=== PATIENT | male | born 1945 | race Two or more races ===

== ENCOUNTER → 2023-05-25 13:18 | Outpatient (BNVA) | payer MEDICARE, SELFPAY | PROVIDERS: PCP Internal Medicine; Visit Provider Internal Medicine Nephrology | DX: I12.9 Hypertensive chronic kidney disease with stage 1 through stage 4 chronic kidney disease, or unspecified chronic kidney disease (principal); N18.5 Chronic kidney disease, stage 5; D63.1 Anemia in chronic kidney disease; N25.81 Secondary hyperparathyroidism of renal origin | CPT/HCPCS: 99212 ==

== ENCOUNTER 2023-05-25 13:30 | Outpatient (AMB) | payer MEDICARE, SELFPAY ==
[2023-05-25 13:31] VITALS: BP 134/70; PULSE 73; O2SAT 99; BMI 22.5
--- NOTE | 2023-05-25 13:31 | HO.NEPHOV ---
HPI HPI Comments History of Present Illness Details I had the pleasure of seeing Maik in follow-up of his advanced chronic kidney disease, hypertension and anemia of chronic disease along with secondary hyperparathyroidism of renal origin. He denies any uremic symptoms or hypoglycemias. His blood sugar well controlled. He denies any nausea, vomiting, shortness of breath, pedal edema, urinary symptoms, tremors, confusion, chest pain. He recently had a dog attacking his right upper extremity which is his fistula arm. His renal functions had been stable. He is not on any Procrit but has anemia. Otherwise there were no new active complaints at the time of this office visit. [facility] Medical History (Updated 05/25/23 @ 14:07 by Matthieu Berrios MD) AVF (arteriovenous fistula) Secondary hyperparathyroidism (of renal origin) Anemia in chronic kidney disease (CKD) Hypertension CKD (chronic kidney disease) stage 5, GFR less than 15 ml/min Surgical History (Updated 05/25/23 @ 13:31 by Perla Love MA) History of eye surgery History of cataract surgery Social History (Updated 05/25/23 @ 13:31 by Perla Love MA) Alcohol intake: never Patient Tobacco Use Status: Never used Tobacco Vital Signs 05/25/23 13:31 Height 5 ft 6 in Weight 139 lb 6 oz BMI 22.5 BP 134/70 Blood Pressure Location Lt brachial Position Sitting Pulse 73 Pulse Source Pulse Oximeter Pulse Oximetry (%) 99 Oxygen Delivery Method Room Air Physical Exam Vital Signs: Last Vital Signs Pulse 73 05/25/23 13:31 BP 134/70 05/25/23 13:31 Pulse Ox 99 05/25/23 13:31 Oxygen Delivery Method Room Air 05/25/23 13:31 BMI result Body Mass Index 22.5 Const General: comfortable and no acute distress Orientation/consciousness: patient oriented x3 HEENT Head: Yes normocephalic Mouth: Normal oral and palatal mucosa present Eyes EOM: EOMs intact bilaterally Neck Neck: Yes supple Resp Auscultation: clear to auscultation bilaterally Cardio Jugular venous distension: no JVD Rate: regular rate GI Palpation (GI): Soft to palpation Auscultation: normal bowel sounds General: Yes no CVA tenderness Back/Spine/Pelvis Back: no CVA tenderness Skin General skin exam: no rashes or lesions noted Neuro General: patient oriented x3 and moves all extremities Extrem Other: AVF + General: Yes no pedal edema Assessment & Plan Assessment & Plan (1) CKD (chronic kidney disease) stage 5, GFR less than 15 ml/min: Code(s): N18.5 - Chronic kidney disease, stage 5 (2) Hypertension: Code(s): I10 - Essential (primary) hypertension Qualifiers: Hypertension type: primary hypertension Qualified Code(s): I10 - Essential (primary) hypertension (3) Anemia in chronic kidney disease (CKD): Code(s): N18.9 - Chronic kidney disease, unspecified; D63.1 - Anemia in chronic kidney disease Qualifiers: Chronic kidney disease stage: stage 5, not on chronic dialysis Qualified Code(s): N18.5 - Chronic kidney disease, stage 5; D63.1 - Anemia in chronic kidney disease (4) Secondary hyperparathyroidism (of renal origin): Code(s): N25.81 - Secondary hyperparathyroidism of renal origin Plan Maik has 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 He denies uremic symptoms. He has a functioning AV fistula. His blood pressure has been at goal. He continues Kayexalate 3 times a week. His sodium bicarbonate has been increased to 3 times a day. He has declined transplant evaluation in the past. There are no clinical indication for him to be initiated on hemodialysis. He is on ferrous sulfate. His transferrin saturations are appropriate. We are repeating a CBC. He will be a candidate for Procrit if his hemoglobin continues to be low. He is on vitamin-D. I have asked him to continue current dose of calcitriol. His repeat blood work has been ordered including PTH. All questions answered. Follow-up given. Orders: Orders Parathyroid Hormone Intact Today D63.1 - Anemia in chronic kidney disease, I10 - Essential (primary) hypertension, N18.5 - Chronic kidney disease, stage 5, N18.9 - Chronic kidney disease, unspecified, N25.81 - Secondary hyperparathyroidism of renal origin Complete Blood Count Auto Diff Today D63.1 - Anemia in chronic kidney disease, I10 - Essential (primary) hypertension, N18.5 - Chronic kidney disease, stage 5, N18.9 - Chronic kidney disease, unspecified, N25.81 - Secondary hyperparathyroidism of renal origin Creatinine Today D63.1 - Anemia in chronic kidney disease, I10 - Essential (primary) hypertension, N18.5 - Chronic kidney disease, stage 5, N18.9 - Chronic kidney disease, unspecified, N25.81 - Secondary hyperparathyroidism of renal origin Electrolytes Today D63.1 - Anemia in chronic kidney disease, I10 - Essential (primary) hypertension, N18.5 - Chronic kidney disease, stage 5, N18.9 - Chronic kidney disease, unspecified, N25.81 - Secondary hyperparathyroidism of renal origin Blood Urea Nitrogen Today D63.1 - Anemia in chronic kidney disease, I10 - Essential (primary) hypertension, N18.5 - Chronic kidney disease, stage 5, N18.9 - Chronic kidney disease, unspecified, N25.81 - Secondary hyperparathyroidism of renal origin Coding Level of Care Code Est Pt Level 4 (69980) Diagnoses CKD (chronic kidney disease) stage 5, GFR less than 15 ml/min N18.5 Primary hypertension I10 Hypertension type: primary hypertension Anemia in stage 5 chronic kidney disease, not on chronic dialysis N18.5; D63.1 Chronic kidney disease stage: stage 5, not on chronic dialysis Secondary hyperparathyroidism (of renal origin) N25.81 Results Reviewed Nephrology Results: No Data to Display
== END 2023-05-25 14:00 | disposition home or self-care (01) ==
PROVIDERS: PCP Internal Medicine; Visit Provider Internal Medicine Nephrology
DX: N18.5 Chronic kidney disease, stage 5 (principal); I12.0 Hypertensive chronic kidney disease with stage 5 chronic kidney disease or end stage renal disease; D63.1 Anemia in chronic kidney disease; N25.81 Secondary hyperparathyroidism of renal origin
CPT/HCPCS: 99214

== ENCOUNTER 2023-06-22 09:22 | Outpatient (AMB) | payer OTHER, SELFPAY ==
[2023-06-22 09:37] VITALS: BP 122/70; PULSE 74; O2SAT 99; BMI 22.2
--- NOTE | 2023-06-22 09:37 | HO.NEPHOV ---
HPI HPI Comments History of Present Illness Details I had the pleasure of seeing Maik in follow-up of his advanced chronic kidney disease, hypertension and anemia of chronic disease along with secondary hyperparathyroidism of renal origin. He denies any uremic symptoms or hypoglycemias. His blood sugar well controlled. He denies any nausea, vomiting, shortness of breath, pedal edema, urinary symptoms, tremors, confusion, chest pain. He recently had a dog attacking his right upper extremity which is his fistula arm. His renal functions had been stable. Otherwise there were no new active complaints at the time of this office visit [facility] Medical History (Updated 05/25/23 @ 14:07 by Matthieu Berrios MD) AVF (arteriovenous fistula) Secondary hyperparathyroidism (of renal origin) Anemia in chronic kidney disease (CKD) Hypertension CKD (chronic kidney disease) stage 5, GFR less than 15 ml/min Surgical History History of eye surgery History of cataract surgery Social History Alcohol intake: never Patient Tobacco Use Status: Never used Tobacco Vital Signs 06/22/23 09:37 Height 5 ft 6 in Weight 137 lb 8 oz BMI 22.2 BP 122/70 Blood Pressure Location Lt brachial Position Sitting Pulse 74 Pulse Source Pulse Oximeter Pulse Oximetry (%) 99 Oxygen Delivery Method Room Air Physical Exam Vital Signs: Last Vital Signs Pulse 74 06/22/23 09:37 BP 122/70 06/22/23 09:37 Pulse Ox 99 06/22/23 09:37 Oxygen Delivery Method Room Air 06/22/23 09:37 BMI result Body Mass Index 22.2 Const General: comfortable and no acute distress Orientation/consciousness: patient oriented x3 HEENT Head: Yes normocephalic Mouth: Normal oral and palatal mucosa present Eyes EOM: EOMs intact bilaterally Neck Neck: Yes supple Resp Auscultation: clear to auscultation bilaterally Cardio Jugular venous distension: no JVD Rate: regular rate GI Palpation (GI): Soft to palpation Auscultation: normal bowel sounds General: Yes no CVA tenderness Back/Spine/Pelvis Back: no CVA tenderness Skin General skin exam: no rashes or lesions noted Neuro General: patient oriented x3 and moves all extremities Extrem General: Yes no pedal edema Assessment & Plan Assessment & Plan (1) CKD (chronic kidney disease) stage 5, GFR less than 15 ml/min: Code(s): N18.5 - Chronic kidney disease, stage 5 (2) Hypertension: Code(s): I10 - Essential (primary) hypertension Qualifiers: Hypertension type: primary hypertension Qualified Code(s): I10 - Essential (primary) hypertension (3) Anemia in chronic kidney disease (CKD): Code(s): N18.9 - Chronic kidney disease, unspecified; D63.1 - Anemia in chronic kidney disease Qualifiers: Chronic kidney disease stage: stage 5, not on chronic dialysis Qualified Code(s): N18.5 - Chronic kidney disease, stage 5; D63.1 - Anemia in chronic kidney disease (4) Secondary hyperparathyroidism (of renal origin): Code(s): N25.81 - Secondary hyperparathyroidism of renal origin Plan Maik has 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 He denies uremic symptoms. He has a functioning AV fistula. His blood pressure has been at goal. He continues Kayexalate 3 times a week. His sodium bicarbonate has been increased to 3 times a day. He has declined transplant evaluation in the past. There are no clinical indication for him to be initiated on hemodialysis. He is on ferrous sulfate. His transferrin saturations are appropriate. I administered 22852 U of Procrit today in the office. He is on vitamin-D. I have asked him to continue current dose of calcitriol. All questions answered. Follow-up given Orders: Orders Complete Blood Count Auto Diff Today D63.1 - Anemia in chronic kidney disease, I10 - Essential (primary) hypertension, N18.5 - Chronic kidney disease, stage 5, N18.9 - Chronic kidney disease, unspecified, N25.81 - Secondary hyperparathyroidism of renal origin [facility] Supplied Today D63.1 - Anemia in chronic kidney disease, N18.5 - Chronic kidney disease, stage 5, N18.9 - Chronic kidney disease, unspecified Medications: New epoetin kj 20,000 units (2 mL) subcut ONCE 2 mL 0RF D63.1 - Anemia in chronic kidney disease, N18.5 - Chronic kidney disease, stage 5, N18.9 - Chronic kidney disease, unspecified Coding Level of Care Code Est Pt Level 3 (71828) Diagnoses CKD (chronic kidney disease) stage 5, GFR less than 15 ml/min N18.5 Primary hypertension I10 Hypertension type: primary hypertension Anemia in stage 5 chronic kidney disease, not on chronic dialysis N18.5; D63.1 Chronic kidney disease stage: stage 5, not on chronic dialysis Secondary hyperparathyroidism (of renal origin) N25.81 Results Reviewed Nephrology Results: No Data to Display
== END 2023-06-22 10:02 | disposition home or self-care (01) ==
PROVIDERS: PCP Internal Medicine; Visit Provider Internal Medicine Nephrology
DX: N18.5 Chronic kidney disease, stage 5 (principal); I12.0 Hypertensive chronic kidney disease with stage 5 chronic kidney disease or end stage renal disease; D63.1 Anemia in chronic kidney disease; N25.81 Secondary hyperparathyroidism of renal origin
CPT/HCPCS: 99213

== ENCOUNTER → 2023-06-22 09:22 | Outpatient (BNVA) | payer OTHER, SELFPAY | PROVIDERS: PCP Internal Medicine; Visit Provider Internal Medicine Nephrology | DX: I12.9 Hypertensive chronic kidney disease with stage 1 through stage 4 chronic kidney disease, or unspecified chronic kidney disease (principal); N18.5 Chronic kidney disease, stage 5; D63.1 Anemia in chronic kidney disease; N25.81 Secondary hyperparathyroidism of renal origin; Z79.899 Other long term (current) drug therapy | CPT/HCPCS: 96372; 99212; Q5106 ==

== ENCOUNTER 2023-07-18 09:29 | Outpatient (AMB) | payer OTHER, SELFPAY ==
[2023-07-18 09:34] VITALS: BP 140/66; PULSE 67; O2SAT 99; BMI 22.6
--- NOTE | 2023-07-18 09:34 | HO.NEPHOV ---
HPI HPI Comments History of Present Illness Details I had the pleasure of seeing Maik in follow-up of his advanced chronic kidney disease, hypertension and anemia of chronic disease along with secondary hyperparathyroidism of renal origin. He denies any uremic symptoms or hypoglycemias. His blood sugar well controlled. He denies any nausea, vomiting, shortness of breath, pedal edema, urinary symptoms, tremors, confusion, chest pain. He recently had a dog attacking his right upper extremity which is his fistula arm. His renal functions had been stable. He has been taking 150 mcg levothyroxine. He was meant to take only 112 mcg but does not have the medication of that strength and has been taking 75 mcg. Otherwise there were no new active complaints at the time of this office visit [facility] Medical History (Updated 05/25/23 @ 14:07 by Matthieu Berrios MD) AVF (arteriovenous fistula) Secondary hyperparathyroidism (of renal origin) Anemia in chronic kidney disease (CKD) Hypertension CKD (chronic kidney disease) stage 5, GFR less than 15 ml/min Surgical History History of eye surgery History of cataract surgery Social History Alcohol intake: never Patient Tobacco Use Status: Never used Tobacco Vital Signs 07/18/23 09:34 Height 5 ft 6 in Weight 140 lb 2 oz BMI 22.6 BP 140/66 H Blood Pressure Location Lt brachial Position Sitting Pulse 67 Pulse Source Pulse Oximeter Pulse Oximetry (%) 99 Oxygen Delivery Method Room Air Physical Exam Const General: comfortable and no acute distress Orientation/consciousness: patient oriented x3 HEENT Head: Yes normocephalic Mouth: Normal oral and palatal mucosa present Eyes EOM: EOMs intact bilaterally Neck Neck: Yes supple Resp Auscultation: clear to auscultation bilaterally Cardio Jugular venous distension: no JVD Rate: regular rate GI Palpation (GI): Soft to palpation Auscultation: normal bowel sounds General: Yes no CVA tenderness Back/Spine/Pelvis Back: no CVA tenderness Skin General skin exam: no rashes or lesions noted Neuro General: patient oriented x3 and moves all extremities Extrem Other: AVF UE +; No asterixis General: Yes no pedal edema Office Meds epoetin [id number] 10,000 unit/mL injection solution Performing Provider: Matthieu Berrios MD Performing Location: [facility] [place] [facility] Administered by: Matthieu Berrios MD on 07/18/23 09:45 Dose Route Admin Location Dispensed Lot Number Expiration Date [facility] [place]NOTE 2] [employer] 20,000 unit subcut 2 mL [id number] 10/13/25 5368-8790-55 [employer] Assessment & Plan Assessment & Plan (1) CKD (chronic kidney disease) stage 5, GFR less than 15 ml/min: Code(s): N18.5 - Chronic kidney disease, stage 5 (2) Hypertension: Code(s): I10 - Essential (primary) hypertension Qualifiers: Hypertension type: primary hypertension Qualified Code(s): I10 - Essential (primary) hypertension (3) Anemia in chronic kidney disease (CKD): Code(s): N18.9 - Chronic kidney disease, unspecified; D63.1 - Anemia in chronic kidney disease Qualifiers: Chronic kidney disease stage: stage 5, not on chronic dialysis Qualified Code(s): N18.5 - Chronic kidney disease, stage 5; D63.1 - Anemia in chronic kidney disease (4) Secondary hyperparathyroidism (of renal origin): Code(s): N25.81 - Secondary hyperparathyroidism of renal origin Plan Maik has 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 He denies uremic symptoms. He has a functioning AV fistula. His blood pressure has been at goal. He continues Kayexalate 3 times a week. He is on sodium bicarbonate . He has declined transplant evaluation in the past. There are no clinical indication for him to be initiated on hemodialysis. He is on ferrous sulfate. His transferrin saturations are appropriate. His last Hb was 9.5. I administered 39973 U of Procrit today in the office. I refilled levothyroxine 112 mcg daily. He is on vitamin-D. I have asked him to continue current dose of calcitriol. All questions answered. Follow-up given Orders: Orders [facility] Epoetin Injection Practice Supplied Today D63.1 - Anemia in chronic kidney disease, N18.9 - Chronic kidney disease, unspecified Calcium Today D63.1 - Anemia in chronic kidney disease, I10 - Essential (primary) hypertension, N18.5 - Chronic kidney disease, stage 5, N18.9 - Chronic kidney disease, unspecified, N25.81 - Secondary hyperparathyroidism of renal origin Electrolytes Today D63.1 - Anemia in chronic kidney disease, I10 - Essential (primary) hypertension, N18.5 - Chronic kidney disease, stage 5, N18.9 - Chronic kidney disease, unspecified, N25.81 - Secondary hyperparathyroidism of renal origin Blood Urea Nitrogen Today D63.1 - Anemia in chronic kidney disease, I10 - Essential (primary) hypertension, N18.5 - Chronic kidney disease, stage 5, N18.9 - Chronic kidney disease, unspecified, N25.81 - Secondary hyperparathyroidism of renal origin Creatinine Today D63.1 - Anemia in chronic kidney disease, I10 - Essential (primary) hypertension, N18.5 - Chronic kidney disease, stage 5, N18.9 - Chronic kidney disease, unspecified, N25.81 - Secondary hyperparathyroidism of renal origin Phosphorus Today D63.1 - Anemia in chronic kidney disease, I10 - Essential (primary) hypertension, N18.5 - Chronic kidney disease, stage 5, N18.9 - Chronic kidney disease, unspecified, N25.81 - Secondary hyperparathyroidism of renal origin Complete Blood Count Auto Diff Today D63.1 - Anemia in chronic kidney disease, I10 - Essential (primary) hypertension, N18.5 - Chronic kidney disease, stage 5, N18.9 - Chronic kidney disease, unspecified, N25.81 - Secondary hyperparathyroidism of renal origin Medications: New levothyroxine (Synthroid) 112 mcg PO DAILY 90 tabs 4RF Coding Level of Care Code Est Pt Level 4 (97296) Diagnoses CKD (chronic kidney disease) stage 5, GFR less than 15 ml/min N18.5 Primary hypertension I10 Hypertension type: primary hypertension Anemia in stage 5 chronic kidney disease, not on chronic dialysis N18.5; D63.1 Chronic kidney disease stage: stage 5, not on chronic dialysis Secondary hyperparathyroidism (of renal origin) N25.81 Results Reviewed Nephrology Results: No Data to Display
== END 2023-07-18 10:07 | disposition home or self-care (01) ==
LOC: HO.HKAS 09:30
PROVIDERS: PCP Internal Medicine; Visit Provider Internal Medicine Nephrology
DX: I12.9 Hypertensive chronic kidney disease with stage 1 through stage 4 chronic kidney disease, or unspecified chronic kidney disease (principal); N18.5 Chronic kidney disease, stage 5; D63.1 Anemia in chronic kidney disease; N25.81 Secondary hyperparathyroidism of renal origin; N18.9 Chronic kidney disease, unspecified
CPT/HCPCS: 99214

== ENCOUNTER → 2023-07-18 09:29 | Outpatient (BNVA) | payer MEDICARE, SELFPAY | PROVIDERS: PCP Internal Medicine; Visit Provider Internal Medicine Nephrology | DX: I12.0 Hypertensive chronic kidney disease with stage 5 chronic kidney disease or end stage renal disease (principal); N18.5 Chronic kidney disease, stage 5; D63.1 Anemia in chronic kidney disease; N25.81 Secondary hyperparathyroidism of renal origin; Z79.899 Other long term (current) drug therapy | CPT/HCPCS: 96372; Q5106 ==

== ENCOUNTER 2023-08-29 10:10 | Outpatient (AMB) | payer OTHER, SELFPAY ==
[2023-08-29 10:57] VITALS: BP 138/60; PULSE 69; O2SAT 99; BMI 21.9
--- NOTE | 2023-08-29 10:57 | HO.NEPHOV ---
HPI HPI Comments History of Present Illness Details I had the pleasure of seeing Maik in follow-up of his advanced chronic kidney disease, hypertension and anemia of chronic disease along with secondary hyperparathyroidism of renal origin. He denies any uremic symptoms or hypoglycemias. His blood sugar well controlled. He denies any nausea, vomiting, shortness of breath, pedal edema, urinary symptoms, tremors, confusion, chest pain. He recently had a dog attacking his right upper extremity which is his fistula arm. His renal functions had been stable. Otherwise there were no new active complaints at the time of this office visit [facility] Medical History (Updated 05/25/23 @ 14:07 by Matthieu Berrios MD) AVF (arteriovenous fistula) Secondary hyperparathyroidism (of renal origin) Anemia in chronic kidney disease (CKD) Hypertension CKD (chronic kidney disease) stage 5, GFR less than 15 ml/min Surgical History History of eye surgery History of cataract surgery Social History Alcohol intake: never Patient Tobacco Use Status: Never used Tobacco Vital Signs 08/29/23 10:57 Height 5 ft 6 in Weight 136 lb BMI 21.9 BP 138/60 Blood Pressure Location Lt brachial Position Sitting Pulse 69 Pulse Source Pulse Oximeter Pulse Oximetry (%) 99 Oxygen Delivery Method Room Air Physical Exam Const General: comfortable and no acute distress Orientation/consciousness: patient oriented x3 HEENT Head: Yes normocephalic Mouth: Normal oral and palatal mucosa present Eyes EOM: EOMs intact bilaterally Neck Neck: Yes supple Resp Auscultation: clear to auscultation bilaterally Cardio Jugular venous distension: no JVD Rate: regular rate GI Palpation (GI): Soft to palpation Auscultation: normal bowel sounds General: Yes no CVA tenderness Back/Spine/Pelvis Back: no CVA tenderness Skin General skin exam: no rashes or lesions noted Neuro General: patient oriented x3 and moves all extremities Extrem General: Yes no pedal edema Office Meds epoetin [id number] 10,000 unit/mL injection solution Performing Provider: Matthieu Berrios MD Performing Location: [facility] [place] [facility] Administered by: Matthieu Berrios MD on 08/29/23 11:13 Dose Route Admin Location Dispensed Lot Number Expiration Date [facility] [employer] 20,000 unit subcut 2 mL [id number] 10/13/25 9669-2576-93 [employer] Assessment & Plan Assessment & Plan (1) CKD (chronic kidney disease) stage 5, GFR less than 15 ml/min: Code(s): N18.5 - Chronic kidney disease, stage 5 (2) Hypertension: Code(s): I10 - Essential (primary) hypertension Qualifiers: Hypertension type: primary hypertension Qualified Code(s): I10 - Essential (primary) hypertension (3) Anemia in chronic kidney disease (CKD): Code(s): N18.9 - Chronic kidney disease, unspecified; D63.1 - Anemia in chronic kidney disease Qualifiers: Chronic kidney disease stage: stage 5, not on chronic dialysis Qualified Code(s): N18.5 - Chronic kidney disease, stage 5; D63.1 - Anemia in chronic kidney disease (4) Secondary hyperparathyroidism (of renal origin): Code(s): N25.81 - Secondary hyperparathyroidism of renal origin Plan Maik has 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 He denies uremic symptoms. He has a functioning AV fistula. His blood pressure has been at goal. He continues Kayexalate 3 times a week. He is on sodium bicarbonate . He has declined transplant evaluation in the past. There are no clinical indication for him to be initiated on hemodialysis. He is on ferrous sulfate. His transferrin saturations are appropriate. His last Hb was 9.5. I administered [id number] U of Procrit today in the office. He is on vitamin-D. I have asked him to continue current dose of calcitriol. All questions answered. Follow-up given Orders: Orders Complete Blood Count Auto Diff Today D63.1 - Anemia in chronic kidney disease, I10 - Essential (primary) hypertension, N18.5 - Chronic kidney disease, stage 5, N25.81 - Secondary hyperparathyroidism of renal origin Ferritin Today D63.1 - Anemia in chronic kidney disease, I10 - Essential (primary) hypertension, N18.5 - Chronic kidney disease, stage 5, N25.81 - Secondary hyperparathyroidism of renal origin Creatinine Today D63.1 - Anemia in chronic kidney disease, I10 - Essential (primary) hypertension, N18.5 - Chronic kidney disease, stage 5, N25.81 - Secondary hyperparathyroidism of renal origin Phosphorus Today D63.1 - Anemia in chronic kidney disease, I10 - Essential (primary) hypertension, N18.5 - Chronic kidney disease, stage 5, N25.81 - Secondary hyperparathyroidism of renal origin [facility] Epoetin Injection Practice Supplied Today D63.1 - Anemia in chronic kidney disease, N18.5 - Chronic kidney disease, stage 5 IRON PROFILE Today D63.1 - Anemia in chronic kidney disease, I10 - Essential (primary) hypertension, N18.5 - Chronic kidney disease, stage 5, N25.81 - Secondary hyperparathyroidism of renal origin Blood Urea Nitrogen Today D63.1 - Anemia in chronic kidney disease, I10 - Essential (primary) hypertension, N18.5 - Chronic kidney disease, stage 5, N25.81 - Secondary hyperparathyroidism of renal origin Electrolytes Today D63.1 - Anemia in chronic kidney disease, I10 - Essential (primary) hypertension, N18.5 - Chronic kidney disease, stage 5, N25.81 - Secondary hyperparathyroidism of renal origin Calcium Today D63.1 - Anemia in chronic kidney disease, I10 - Essential (primary) hypertension, N18.5 - Chronic kidney disease, stage 5, N25.81 - Secondary hyperparathyroidism of renal origin Parathyroid Hormone Intact Today D63.1 - Anemia in chronic kidney disease, I10 - Essential (primary) hypertension, N18.5 - Chronic kidney disease, stage 5, N25.81 - Secondary hyperparathyroidism of renal origin Coding Level of Care Code Est Pt Level 4 (39902) Diagnoses CKD (chronic kidney disease) stage 5, GFR less than 15 ml/min N18.5 Primary hypertension I10 Hypertension type: primary hypertension Anemia in stage 5 chronic kidney disease, not on chronic dialysis N18.5; D63.1 Chronic kidney disease stage: stage 5, not on chronic dialysis Secondary hyperparathyroidism (of renal origin) N25.81 Results Reviewed Nephrology Results: No Data to Display
== END 2023-08-29 11:23 | disposition home or self-care (01) ==
PROVIDERS: PCP Internal Medicine; Visit Provider Internal Medicine Nephrology
DX: N18.5 Chronic kidney disease, stage 5 (principal); I12.0 Hypertensive chronic kidney disease with stage 5 chronic kidney disease or end stage renal disease; D63.1 Anemia in chronic kidney disease; N25.81 Secondary hyperparathyroidism of renal origin
CPT/HCPCS: 99214

== ENCOUNTER → 2023-08-29 10:10 | Outpatient (BNVA) | payer MEDICARE, SELFPAY | PROVIDERS: PCP Internal Medicine; Visit Provider Internal Medicine Nephrology | DX: I12.9 Hypertensive chronic kidney disease with stage 1 through stage 4 chronic kidney disease, or unspecified chronic kidney disease (principal); N18.5 Chronic kidney disease, stage 5; D63.1 Anemia in chronic kidney disease; N25.81 Secondary hyperparathyroidism of renal origin | CPT/HCPCS: 96372; Q5106 ==

== ENCOUNTER 2023-10-31 09:51 | Outpatient (AMB) | payer OTHER, SELFPAY ==
[2023-10-31 10:19] VITALS: BP 148/60; PULSE 65; O2SAT 98; BMI 22.4
--- NOTE | 2023-10-31 10:19 | HO.NEPHOV ---
Vital Signs 10/31/23 10:19 Height 5 ft 6 in Weight 139 lb BMI 22.4 BP 148/60 H Blood Pressure Location Lt brachial Position Sitting Pulse 65 Pulse Source Pulse Oximeter Pulse Oximetry (%) 98 Oxygen Delivery Method Room Air Intake Visit Reasons: 2 mon follow up/ Conf Laminate Floor Installer Required: No Accompanied by: Self / Same As Patient Allergies No Known Allergies Allergy (Verified 10/31/23 10:21) HPI Comments Details: I had the pleasure of seeing Maik in follow-up of his advanced chronic kidney disease, hypertension and anemia of chronic disease along with secondary hyperparathyroidism of renal origin. He denies any uremic symptoms or hypoglycemias. His blood sugar well controlled. He denies any nausea, vomiting, shortness of breath, pedal edema, urinary symptoms, tremors, confusion, chest pain. He recently had a dog attacking his right upper extremity which is his fistula arm. His renal functions had been stable. Otherwise there were no new active complaints at the time of this office visit [facility] Medical History (Updated 05/25/23 @ 14:07 by Matthieu Berrios MD) AVF (arteriovenous fistula) Secondary hyperparathyroidism (of renal origin) Anemia in chronic kidney disease (CKD) Hypertension CKD (chronic kidney disease) stage 5, GFR less than 15 ml/min Surgical History History of eye surgery History of cataract surgery Social History Alcohol intake: never Patient Tobacco Use Status: Never used Tobacco Physical Exam Vital Signs: Last Vital Signs Pulse 65 10/31/23 10:19 BP 148/60 H 10/31/23 10:19 Pulse Ox 98 10/31/23 10:19 Oxygen Delivery Method Room Air 10/31/23 10:19 BMI result Body Mass Index 22.4 Const General: comfortable and no acute distress Orientation/consciousness: patient oriented x3 HEENT Head: Yes normocephalic Mouth: Normal oral and palatal mucosa present Eyes EOM: EOMs intact bilaterally Neck Neck: Yes supple Resp Auscultation: clear to auscultation bilaterally Cardio Jugular venous distension: no JVD Rate: regular rate GI Palpation (GI): Soft to palpation Auscultation: normal bowel sounds General: Yes no CVA tenderness Back/Spine/Pelvis Back: no CVA tenderness Skin General skin exam: no rashes or lesions noted Neuro General: patient oriented x3 and moves all extremities Extrem General: Yes no pedal edema Office Meds epoetin kj-epbx 10,000 unit/mL injection solution Performing Provider: Matthieu Berrios MD Performing Location: [facility] – [place] [facility] Administered by: Matthieu Berrios MD on 10/31/23 10:31 Dose Route Admin Location Dispensed Lot Number Expiration Date [facility] Metal Bending Machine Operator 20,000 unit subcut LUE 2 mL [id number] 04/14/25 4122-4249-38 [employer] Results Reviewed Nephrology Results: No Data to Display Assessment & Plan Assessment & Plan (1) CKD (chronic kidney disease) stage 5, GFR less than 15 ml/min: Code(s): N18.5 - Chronic kidney disease, stage 5 Category: Medical (2) Hypertension: Code(s): I10 - Essential (primary) hypertension Category: Medical Qualifiers: Hypertension type: primary hypertension Qualified Code(s): I10 - Essential (primary) hypertension (3) Anemia in chronic kidney disease (CKD): Code(s): N18.9 - Chronic kidney disease, unspecified; D63.1 - Anemia in chronic kidney disease Category: Medical Qualifiers: Chronic kidney disease stage: stage 5, not on chronic dialysis Qualified Code(s): N18.5 - Chronic kidney disease, stage 5; D63.1 - Anemia in chronic kidney disease (4) Secondary hyperparathyroidism (of renal origin): Code(s): N25.81 - Secondary hyperparathyroidism of renal origin Category: Medical Plan Maik has 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 He denies uremic symptoms. He has a functioning AV fistula. His blood pressure has been at goal. He continues Kayexalate 3 times a week. He is on sodium bicarbonate . He has declined transplant evaluation in the past. There are no clinical indication for him to be initiated on hemodialysis. He is on ferrous sulfate. His transferrin saturations are appropriate. His last Hb was 9.5. I administered [id number] U of Procrit today in the office. He is on vitamin-D. I have asked him to continue current dose of calcitriol. All questions answered. Follow-up given Orders: Orders Creatinine Today D63.1 - Anemia in chronic kidney disease, I10 - Essential (primary) hypertension, N18.5 - Chronic kidney disease, stage 5, N25.81 - Secondary hyperparathyroidism of renal origin Blood Urea Nitrogen Today D63.1 - Anemia in chronic kidney disease, I10 - Essential (primary) hypertension, N18.5 - Chronic kidney disease, stage 5, N25.81 - Secondary hyperparathyroidism of renal origin Calcium Today D63.1 - Anemia in chronic kidney disease, I10 - Essential (primary) hypertension, N18.5 - Chronic kidney disease, stage 5, N25.81 - Secondary hyperparathyroidism of renal origin Vitamin D 25-OH Total Today D63.1 - Anemia in chronic kidney disease, I10 - Essential (primary) hypertension, N18.5 - Chronic kidney disease, stage 5, N25.81 - Secondary hyperparathyroidism of renal origin AMB Epoetin Injection Practice Supplied Today D63.1 - Anemia in chronic kidney disease, N18.5 - Chronic kidney disease, stage 5 Electrolytes Today D63.1 - Anemia in chronic kidney disease, I10 - Essential (primary) hypertension, N18.5 - Chronic kidney disease, stage 5, N25.81 - Secondary hyperparathyroidism of renal origin Complete Blood Count Auto Diff Today D63.1 - Anemia in chronic kidney disease, I10 - Essential (primary) hypertension, N18.5 - Chronic kidney disease, stage 5, N25.81 - Secondary hyperparathyroidism of renal origin Coding Level of Care Code Est Pt Level 4 (15602) Diagnoses CKD (chronic kidney disease) stage 5, GFR less than 15 ml/min N18.5 Primary hypertension I10 Hypertension type: primary hypertension Anemia in stage 5 chronic kidney disease, not on chronic dialysis N18.5; D63.1 Chronic kidney disease stage: stage 5, not on chronic dialysis Secondary hyperparathyroidism (of renal origin) N25.81
== END 2023-10-31 10:40 | disposition home or self-care (01) ==
PROVIDERS: PCP Internal Medicine; Referring Provider Internal Medicine; Visit Provider Internal Medicine Nephrology
DX: N18.5 Chronic kidney disease, stage 5 (principal); I12.0 Hypertensive chronic kidney disease with stage 5 chronic kidney disease or end stage renal disease; D63.1 Anemia in chronic kidney disease; N25.81 Secondary hyperparathyroidism of renal origin
CPT/HCPCS: 99214

== ENCOUNTER → 2023-10-31 09:51 | Outpatient (BNVA) | payer OTHER, SELFPAY | PROVIDERS: PCP Internal Medicine; Visit Provider Internal Medicine Nephrology | DX: I12.0 Hypertensive chronic kidney disease with stage 5 chronic kidney disease or end stage renal disease (principal); N18.5 Chronic kidney disease, stage 5; D63.1 Anemia in chronic kidney disease; N25.81 Secondary hyperparathyroidism of renal origin | CPT/HCPCS: 96372; Q5106 ==

== ENCOUNTER 2024-01-18 14:10 | Outpatient (AMB) | payer OTHER, SELFPAY ==
--- NOTE | 2024-01-18 14:42 | HO.NEPHOV_ITS ---
Vital Signs 01/18/24 14:43 Height 5 ft 6 in Weight 134 lb BMI 21.6 BP 140/68 H Blood Pressure Location Lt brachial Position Sitting Pulse 68 Pulse Source Pulse Oximeter Pulse Oximetry (%) 96 Oxygen Delivery Method Room Air Intake Visit Reasons: 2 mon follow up/CONF Lean Consultant Required: No Accompanied by: Self / Same As Patient Allergies No Known Allergies Allergy (Verified 01/18/24 14:45) HPI Comments Details: I had the pleasure of seeing Maik in follow-up of his advanced chronic kidney disease, hypertension and anemia of chronic disease along with secondary hyperparathyroidism of renal origin. He denies any uremic symptoms or hypoglycemias. His blood sugar well controlled. He denies any nausea, vomiting, shortness of breath, pedal edema, urinary symptoms, tremors, confusion, chest pain. He recently had a dog attacking his right upper extremity which is his fistula arm. Otherwise there were no new active complaints at the time of this office visit [facility] Medical History (Updated 01/18/24 @ 15:08 by Matthieu Berrios MD) AVF (arteriovenous fistula) Secondary hyperparathyroidism (of renal origin) Anemia in chronic kidney disease (CKD) Hypertension CKD (chronic kidney disease) stage 5, GFR less than 15 ml/min Surgical History History of eye surgery History of cataract surgery Social History Alcohol intake: never Patient Tobacco Use Status: Never used Tobacco Review of Systems Const All systems reviewed & are unremarkable except as noted in HPI and below Physical Exam Vital Signs: Last Vital Signs Pulse 68 01/18/24 14:43 BP 140/68 H 01/18/24 14:43 Pulse Ox 96 01/18/24 14:43 Oxygen Delivery Method Room Air 01/18/24 14:43 BMI result Body Mass Index 21.6 Const General: comfortable and no acute distress Orientation/consciousness: patient oriented x3 HEENT Head: Yes normocephalic Mouth: Normal oral and palatal mucosa present Eyes EOM: EOMs intact bilaterally Neck Neck: Yes supple Resp Auscultation: clear to auscultation bilaterally Cardio Jugular venous distension: no JVD Rate: regular rate GI Palpation (GI): Soft to palpation Auscultation: normal bowel sounds General: Yes no CVA tenderness Back/Spine/Pelvis Back: no CVA tenderness Skin General skin exam: no rashes or lesions noted Neuro General: patient oriented x3 and moves all extremities Extrem General: Yes no pedal edema Results Reviewed Nephrology Results: No Data to Display Assessment & Plan Assessment & Plan (1) CKD (chronic kidney disease) stage 5, GFR less than 15 ml/min: Code(s): N18.5 - Chronic kidney disease, stage 5 Category: Medical (2) Hypertension: Code(s): I10 - Essential (primary) hypertension Category: Medical Qualifiers: Hypertension type: primary hypertension Qualified Code(s): I10 - Essential (primary) hypertension (3) Anemia in chronic kidney disease (CKD): Code(s): N18.9 - Chronic kidney disease, unspecified; D63.1 - Anemia in chronic kidney disease Category: Medical Qualifiers: Chronic kidney disease stage: stage 5, not on chronic dialysis Qualified Code(s): N18.5 - Chronic kidney disease, stage 5; D63.1 - Anemia in chronic kidney disease (4) Secondary hyperparathyroidism (of renal origin): Code(s): N25.81 - Secondary hyperparathyroidism of renal origin Category: Medical (5) Hypothyroidism: Code(s): E03.9 - Hypothyroidism, unspecified Category: Medical Plan Maik has 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 He denies uremic symptoms. He has a functioning AV fistula. His blood pressure has been at goal. I increased his Kayexalate to 4 times a week. He is on sodium bicarbonate . He has declined transplant evaluation in the past. There are no clinical indication for him to be initiated on hemodialysis. He is on ferrous sulfate. His transferrin saturations are appropriate. He is on vitamin-D. I have asked him to continue current dose of calcitriol. All questions answered. Follow-up given Orders: Orders Complete Blood Count Auto Diff Today D63.1 - Anemia in chronic kidney disease, E03.9 - Hypothyroidism, unspecified, I10 - Essential (primary) hypertension, N18.5 - Chronic kidney disease, stage 5, N25.81 - Secondary hyperparathyroidism of renal origin Ferritin Today D63.1 - Anemia in chronic kidney disease, E03.9 - Hypothyroidism, unspecified, I10 - Essential (primary) hypertension, N18.5 - Chronic kidney disease, stage 5, N25.81 - Secondary hyperparathyroidism of renal origin Electrolytes Today D63.1 - Anemia in chronic kidney disease, E03.9 - Hypothyroidism, unspecified, I10 - Essential (primary) hypertension, N18.5 - Chronic kidney disease, stage 5, N25.81 - Secondary hyperparathyroidism of renal origin Calcium Today D63.1 - Anemia in chronic kidney disease, E03.9 - Hypothyroidism, unspecified, I10 - Essential (primary) hypertension, N18.5 - Chronic kidney disease, stage 5, N25.81 - Secondary hyperparathyroidism of renal origin Phosphorus Today D63.1 - Anemia in chronic kidney disease, E03.9 - Hypothyroidism, unspecified, I10 - Essential (primary) hypertension, N18.5 - Chronic kidney disease, stage 5, N25.81 - Secondary hyperparathyroidism of renal origin IRON PROFILE Today D63.1 - Anemia in chronic kidney disease, E03.9 - Hypothyroidism, unspecified, I10 - Essential (primary) hypertension, N18.5 - Chronic kidney disease, stage 5, N25.81 - Secondary hyperparathyroidism of renal origin Creatinine Today D63.1 - Anemia in chronic kidney disease, E03.9 - Hypothyroidism, unspecified, I10 - Essential (primary) hypertension, N18.5 - Chronic kidney disease, stage 5, N25.81 - Secondary hyperparathyroidism of renal origin Blood Urea Nitrogen Today D63.1 - Anemia in chronic kidney disease, E03.9 - Hypothyroidism, unspecified, I10 - Essential (primary) hypertension, N18.5 - Chronic kidney disease, stage 5, N25.81 - Secondary hyperparathyroidism of renal origin TSH reflex Free T4 Today D63.1 - Anemia in chronic kidney disease, E03.9 - Hyp othyroidism, unspecified, I10 - Essential (primary) hypertension, N18.5 - Chronic kidney disease, stage 5, N25.81 - Secondary hyperparathyroidism of renal origin Medications: Changed From sodium polystyrene sulfonate 30 grams orally three times a week; 90 days 453.6 grams 7RF To sodium polystyrene sulfonate 30 grams orally four times a week; 90 days 453.6 grams 7RF Coding Level of Care Code Est Pt Level 4 (67597) Diagnoses CKD (chronic kidney disease) stage 5, GFR less than 15 ml/min N18.5 Primary hypertension I10 Hypertension type: primary hypertension Anemia in stage 5 chronic kidney disease, not on chronic dialysis N18.5; D63.1 Chronic kidney disease stage: stage 5, not on chronic dialysis Secondary hyperparathyroidism (of renal origin) N25.81 Hypothyroidism E03.9
[2024-01-18 14:43] VITALS: BP 140/68; PULSE 68; O2SAT 96; BMI 21.6
== END 2024-01-18 15:10 | disposition home or self-care (01) ==
PROVIDERS: PCP Internal Medicine; Visit Provider Internal Medicine Nephrology
DX: N18.5 Chronic kidney disease, stage 5 (principal); I12.0 Hypertensive chronic kidney disease with stage 5 chronic kidney disease or end stage renal disease; D63.1 Anemia in chronic kidney disease; N25.81 Secondary hyperparathyroidism of renal origin; E03.9 Hypothyroidism, unspecified
CPT/HCPCS: 99214

== ENCOUNTER → 2024-01-18 14:10 | Outpatient (BNVA) | payer OTHER, SELFPAY | PROVIDERS: PCP Internal Medicine; Visit Provider Internal Medicine Nephrology ==

== ENCOUNTER 2024-03-21 09:33 | Outpatient (AMB) | payer OTHER, SELFPAY ==
--- NOTE | 2024-03-21 09:36 | HO.NEPHOV ---
Vital Signs 03/21/24 09:39 Height 5 ft 6 in Weight 131 lb 4 oz BMI 21.2 BP 138/64 Blood Pressure Location Lt brachial Position Sitting Pulse 69 Pulse Source Pulse Oximeter Pulse Oximetry (%) 100 Oxygen Delivery Method Room Air Intake Visit Reasons: 2 mon follow up Sharepoint Web Developer Required: No Accompanied by: Self / Same As Patient Allergies No Known Allergies Allergy (Verified 03/21/24 09:39) HPI Comments Details: Maik was seen in follow-up of his advanced chronic kidney disease, hypertension and anemia of chronic disease along with secondary hyperparathyroidism of renal origin. He denies any uremic symptoms or hypoglycemias. He has lost some weight. His blood sugar well controlled. He denies any nausea, vomiting, shortness of breath, pedal edema, urinary symptoms, tremors, confusion, chest pain. He had a dog attacking his right upper extremity which is his fistula arm. Otherwise there were no new active complaints at the time of this office visit [facility] Medical History (Updated 03/21/24 @ 10:01 by Matthieu Berrios MD) AVF (arteriovenous fistula) Secondary hyperparathyroidism (of renal origin) Anemia in chronic kidney disease (CKD) Hypertension CKD (chronic kidney disease) stage 5, GFR less than 15 ml/min Surgical History History of eye surgery History of cataract surgery Social History Alcohol intake: never Patient Tobacco Use Status: Never used Tobacco Review of Systems Const All systems reviewed & are unremarkable except as noted in HPI and below Physical Exam Vital Signs: Last Vital Signs Pulse 69 03/21/24 09:39 BP 138/64 03/21/24 09:39 Pulse Ox 100 03/21/24 09:39 Oxygen Delivery Method Room Air 03/21/24 09:39 BMI result Body Mass Index 21.2 Const General: comfortable and no acute distress Orientation/consciousness: patient oriented x3 HEENT Head: Yes normocephalic Mouth: Normal oral and palatal mucosa present Eyes EOM: EOMs intact bilaterally Neck Neck: Yes supple Resp Auscultation: clear to auscultation bilaterally Cardio Jugular venous distension: no JVD Rate: regular rate GI Palpation (GI): Soft to palpation Auscultation: normal bowel sounds General: Yes no CVA tenderness Back/Spine/Pelvis Back: no CVA tenderness Skin General skin exam: no rashes or lesions noted Neuro General: patient oriented x3 and moves all extremities Extrem General: Yes no pedal edema Office Meds epoetin kj-epbx 10,000 unit/mL injection solution Performing Provider: Matthieu Berrios MD Performing Location: [facility] [place] [facility] Administered by: Matthieu Berrios MD on 03/21/24 10:04 Dose Route Admin Location Dispensed Lot Number Expiration Date [facility] Slurry Tank Operator 40,000 unit subcut LUE 4 mL [id number] 09/12/25 9314-8269-26 [email or web address] Results Reviewed Nephrology Results: No Data to Display Assessment & Plan Assessment & Plan (1) CKD (chronic kidney disease) stage 5, GFR less than 15 ml/min: Code(s): N18.5 - Chronic kidney disease, stage 5 Category: Medical (2) Anemia in chronic kidney disease (CKD): Code(s): N18.9 - Chronic kidney disease, unspecified; D63.1 - Anemia in chronic kidney disease Category: Medical Qualifiers: Chronic kidney disease stage: stage 5, not on chronic dialysis Qualified Code(s): N18.5 - Chronic kidney disease, stage 5; D63.1 - Anemia in chronic kidney disease (3) Secondary hyperparathyroidism (of renal origin): Code(s): N25.81 - Secondary hyperparathyroidism of renal origin Category: Medical (4) Hypertension: Code(s): I10 - Essential (primary) hypertension Category: Medical Qualifiers: Hypertension type: primary hypertension Qualified Code(s): I10 - Essential (primary) hypertension (5) Hyperphosphatemia: Code(s): E83.39 - Other disorders of phosphorus metabolism Category: Medical Plan Maik has 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 He denies uremic symptoms. He has a functioning AV fistula. His blood pressure has been at goal. He should continue Kayexalate . He is on sodium bicarbonate . He has declined transplant evaluation in the past. There are no clinical indication for him to be initiated on hemodialysis. He is on ferrous sulfate. His transferrin saturations are appropriate. He is on vitamin-D. I have asked him to continue current dose of calcitriol. I gave him [id number] Units of Procrit today. I also started Renvela 800 mg tid with meals. All questions answered. Follow-up given Orders: Orders Electrolytes Today N18.5 - Chronic kidney disease, stage 5 AMB Epoetin Injection Practice Supplied Today D63.1 - Anemia in chronic kidney disease, N18.5 - Chronic kidney disease, stage 5 Complete Blood Count Auto Diff Today N18.5 - Chronic kidney disease, stage 5 Creatinine Today N18.5 - Chronic kidney disease, stage 5 Blood Urea Nitrogen Today N18.5 - Chronic kidney disease, stage 5 Medications: New sevelamer carbonate (Renvela) must administer with a meal/food 800 mg PO TID 30 days 90 tabs 6RF Changed From sodium bicarbonate 1,300 mg PO TID To sodium bicarbonate 1,300 mg (2 x 650 mg) PO TID 30 days 180 tabs 6RF Coding Level of Care Code Est Pt Level 4 (85126) Diagnoses CKD (chronic kidney disease) stage 5, GFR less than 15 ml/min N18.5 Anemia in stage 5 chronic kidney disease, not on chronic dialysis N18.5; D63.1 Chronic kidney disease stage: stage 5, not on chronic dialysis Secondary hyperparathyroidism (of renal origin) N25.81 Primary hypertension I10 Hypertension type: primary hypertension Hyperphosphatemia E83.39
[2024-03-21 09:39] VITALS: BP 138/64; PULSE 69; O2SAT 100; BMI 21.2
== END 2024-03-21 10:11 | disposition home or self-care (01) ==
LOC: HO.HKAS 09:34
PROVIDERS: PCP Internal Medicine; Visit Provider Internal Medicine Nephrology
DX: N18.5 Chronic kidney disease, stage 5 (principal); D63.1 Anemia in chronic kidney disease; N25.81 Secondary hyperparathyroidism of renal origin; I12.0 Hypertensive chronic kidney disease with stage 5 chronic kidney disease or end stage renal disease; E83.39 Other disorders of phosphorus metabolism
CPT/HCPCS: 99214

== ENCOUNTER → 2024-03-21 09:33 | Outpatient (BNVA) | payer OTHER, SELFPAY | PROVIDERS: PCP Internal Medicine; Visit Provider Internal Medicine Nephrology | DX: I12.0 Hypertensive chronic kidney disease with stage 5 chronic kidney disease or end stage renal disease (principal); N18.5 Chronic kidney disease, stage 5; D63.1 Anemia in chronic kidney disease; N25.81 Secondary hyperparathyroidism of renal origin; E83.39 Other disorders of phosphorus metabolism | CPT/HCPCS: 96372; Q5106 ==

== ENCOUNTER 2024-04-25 10:37 | Outpatient (AMB) | payer OTHER, SELFPAY ==
--- NOTE | 2024-04-25 13:33 | HO.NEPHOV ---
Vital Signs 04/25/24 13:39 Height 5 ft 6 in Weight 132 lb BMI 21.3 BP 122/60 Blood Pressure Location Lt brachial Position Sitting Pulse 74 Pulse Source Pulse Oximeter Pulse Oximetry (%) 99 Oxygen Delivery Method Room Air Intake Visit Reasons: 2 mon follow up- Unable to reach Conduit Reamer Operator Required: No Accompanied by: Self / Same As Patient Allergies No Known Allergies Allergy (Verified 04/25/24 13:38) HPI Comments Details: Maik was seen in follow-up of his advanced chronic kidney disease, hypertension and anemia of chronic disease along with secondary hyperparathyroidism of renal origin. He denies any uremic symptoms or hypoglycemias. His weight is stable. His blood sugar well controlled. He denies any nausea, vomiting, shortness of breath, pedal edema, urinary symptoms, tremors, confusion, chest pain. He had a dog attacking his right upper extremity which is his fistula arm. Otherwise there were no new active complaints at the time of this office visit [facility] Medical History (Updated 03/21/24 @ 10:01 by Matthieu Berrios MD) AVF (arteriovenous fistula) Secondary hyperparathyroidism (of renal origin) Anemia in chronic kidney disease (CKD) Hypertension CKD (chronic kidney disease) stage 5, GFR less than 15 ml/min Surgical History History of eye surgery History of cataract surgery Social History Alcohol intake: never Patient Tobacco Use Status: Never used Tobacco Review of Systems Const All systems reviewed & are unremarkable except as noted in HPI and below Physical Exam Vital Signs: Last Vital Signs Pulse 74 04/25/24 13:39 BP 122/60 04/25/24 13:39 Pulse Ox 99 04/25/24 13:39 Oxygen Delivery Method Room Air 04/25/24 13:39 BMI result Body Mass Index 21.3 Const General: comfortable and no acute distress Orientation/consciousness: patient oriented x3 HEENT Head: Yes normocephalic Mouth: Normal oral and palatal mucosa present Eyes EOM: EOMs intact bilaterally Neck Neck: Yes supple Resp Auscultation: clear to auscultation bilaterally Cardio Jugular venous distension: no JVD Rate: regular rate GI Palpation (GI): Soft to palpation Auscultation: normal bowel sounds General: Yes no CVA tenderness Back/Spine/Pelvis Back: no CVA tenderness Skin General skin exam: no rashes or lesions noted Neuro General: patient oriented x3 and moves all extremities Extrem General: Yes no pedal edema Office Meds epoetin [id number] 10,000 unit/mL injection solution Performing Provider: Matthieu Berrios MD Performing Location: [facility] [place] [facility] Administered by: Matthieu Berrios MD on 04/25/24 13:50 Dose Route Admin Location Dispensed Lot Number Expiration Date [facility] Industrial Seamstress 20,000 unit subcut LUE 2 mL [id number] 09/12/25 0547-4557-74 [employer] Results Reviewed Nephrology Results: No Data to Display Assessment & Plan Assessment & Plan (1) CKD (chronic kidney disease) stage 5, GFR less than 15 ml/min: Code(s): N18.5 - Chronic kidney disease, stage 5 Category: Medical (2) Anemia in chronic kidney disease (CKD): Code(s): N18.9 - Chronic kidney disease, unspecified; D63.1 - Anemia in chronic kidney disease Category: Medical Qualifiers: Chronic kidney disease stage: stage 5, not on chronic dialysis Qualified Code(s): N18.5 - Chronic kidney disease, stage 5; D63.1 - Anemia in chronic kidney disease (3) Secondary hyperparathyroidism (of renal origin): Code(s): N25.81 - Secondary hyperparathyroidism of renal origin Category: Medical (4) Hypertension: Code(s): I10 - Essential (primary) hypertension Category: Medical Qualifiers: Hypertension type: primary hypertension Qualified Code(s): I10 - Essential (primary) hypertension (5) Hyperphosphatemia: Code(s): E83.39 - Other disorders of phosphorus metabolism Category: Medical Plan Maik has 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 He denies uremic symptoms. He has a functioning AV fistula. His blood pressure has been at goal. He should continue Kayexalate . He is on sodium bicarbonate . He has declined transplant evaluation in the past. There are no clinical indication for him to be initiated on hemodialysis. He is on ferrous sulfate. His transferrin saturations are appropriate. He is on vitamin-D. I have asked him to continue current dose of calcitriol. I gave him [id number] Units of Procrit today. I also started Renvela 800 mg tid with meals. All questions answered. Follow-up given Orders: Orders Creatinine 2 Months D63.1 - Anemia in chronic kidney disease, N18.5 - Chronic kidney disease, stage 5 Calcium 2 Months D63.1 - Anemia in chronic kidney disease, N18.5 - Chronic kidney disease, stage 5 AMB Epoetin Injection Practice Supplied Today D63.1 - Anemia in chronic kidney disease, N18.5 - Chronic kidney disease, stage 5 Complete Blood Count Auto Diff 2 Months D63.1 - Anemia in chronic kidney disease, N18.5 - Chronic kidney disease, stage 5 Blood Urea Nitrogen 2 Months D63.1 - Anemia in chronic kidney disease, N18.5 - Chronic kidney disease, stage 5 Electrolytes 2 Months D63.1 - Anemia in chronic kidney disease, N18.5 - Chronic kidney disease, stage 5 Coding Level of Care Code Est Pt Level 4 (03852) Diagnoses CKD (chronic kidney disease) stage 5, GFR less than 15 ml/min N18.5 Anemia in stage 5 chronic kidney disease, not on chronic dialysis N18.5; D63.1 Chronic kidney disease stage: stage 5, not on chronic dialysis Secondary hyperparathyroidism (of renal origin) N25.81 Primary hypertension I10 Hypertension type: primary hypertension Hyperphosphatemia E83.39
[2024-04-25 13:39] VITALS: BP 122/60; PULSE 74; O2SAT 99; BMI 21.3
== END 2024-04-25 14:01 | disposition home or self-care (01) ==
PROVIDERS: PCP Internal Medicine; Visit Provider Internal Medicine Nephrology
DX: N18.5 Chronic kidney disease, stage 5 (principal); D63.1 Anemia in chronic kidney disease; N25.81 Secondary hyperparathyroidism of renal origin; I12.0 Hypertensive chronic kidney disease with stage 5 chronic kidney disease or end stage renal disease; E83.39 Other disorders of phosphorus metabolism
CPT/HCPCS: 99214

== ENCOUNTER → 2024-04-25 10:37 | Outpatient (BNVA) | payer OTHER, SELFPAY | PROVIDERS: PCP Internal Medicine; Visit Provider Internal Medicine Nephrology | DX: I12.0 Hypertensive chronic kidney disease with stage 5 chronic kidney disease or end stage renal disease (principal); N18.5 Chronic kidney disease, stage 5; D63.1 Anemia in chronic kidney disease; N25.81 Secondary hyperparathyroidism of renal origin; E83.39 Other disorders of phosphorus metabolism | CPT/HCPCS: 96372; Q5106 ==

== ENCOUNTER 2024-07-02 14:06 | Outpatient (AMB) | payer OTHER, SELFPAY ==
--- NOTE | 2024-07-02 14:17 | HO.NEPHOV_ITS ---
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 He denies any uremic symptoms or hypoglycemias. His weight is stable. His blood sugar well controlled. He denies any nausea, vomiting, shortness of breath, pedal edema, urinary symptoms, tremors, confusion, chest pain. He has H/O of a dog attacking his right upper extremity which is his fistula arm. Otherwise there were no new active complaints at the time of this office visit [facility] Medical History (Updated 03/21/24 @ 10:01 by Matthieu Berrios MD) AVF (arteriovenous fistula) Secondary hyperparathyroidism (of renal origin) Anemia in chronic kidney disease (CKD) Hypertension CKD (chronic kidney disease) stage 5, GFR less than 15 ml/min Surgical History History of eye surgery History of cataract surgery Social History Alcohol intake: never Patient Tobacco Use Status: Never used Tobacco Review of Systems Const All systems reviewed & are unremarkable except as noted in HPI and below Physical Exam Vital Signs: Last Vital Signs BP 144/70 H 07/02/24 14:20 BMI result Body Mass Index 21.3 Const General: comfortable and no acute distress Orientation/consciousness: patient oriented x3 HEENT Head: Yes normocephalic Mouth: Normal oral and palatal mucosa present Eyes EOM: EOMs intact bilaterally Neck Neck: Yes supple Resp Auscultation: clear to auscultation bilaterally Cardio Jugular venous distension: no JVD Rate: regular rate GI Palpation (GI): Soft to palpation Auscultation: normal bowel sounds General: Yes no CVA tenderness Back/Spine/Pelvis Back: no CVA tenderness Skin General skin exam: no rashes or lesions noted Neuro General: patient oriented x3 and moves all extremities Extrem General: Yes no pedal edema Office Meds epoetin [id number] 10,000 unit/mL injection solution Performing Provider: Matthieu Berrios MD Per[facility] Administered by: Matthieu Berrios MD on 07/02/24 14:39 Dose Route Admin Location Dispensed Lot Number Expiration Date [facility] [place] [employer] 20,000 unit subcut LUE 2 mL [id number] 09/12/25 8377-2266-41 [employer] Results Reviewed Nephrology Results: No Data to Display Assessment & Plan Assessment & Plan (1) Anemia in chronic kidney disease (CKD): Code(s): N18.9 - Chronic kidney disease, unspecified; D63.1 - Anemia in chronic kidney disease Category: Medical Qualifiers: Chronic kidney disease stage: stage 5, not on chronic dialysis Qualified Code(s): N18.5 - Chronic kidney disease, stage 5; D63.1 - Anemia in chronic kidney disease (2) Secondary hyperparathyroidism (of renal origin): Code(s): N25.81 - Secondary hyperparathyroidism of renal origin Category: Medical (3) CKD (chronic kidney disease) stage 5, GFR less than 15 ml/min: Code(s): N18.5 - Chronic kidney disease, stage 5 Category: Medical (4) Hypertension: Code(s): I10 - Essential (primary) hypertension Category: Medical Qualifiers: Hypertension type: primary hypertension Qualified Code(s): I10 - Essential (primary) hypertension (5) Hyperphosphatemia: Code(s): E83.39 - Other disorders of phosphorus metabolism Category: Medical Plan Maik has 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 He denies u remic symptoms. He has a functioning AV fistula. His blood pressure has been at goal at home. He should continue Kayexalate . He is on sodium bicarbonate . He has declined transplant evaluation in the past. There are no clinical indication for him to be initiated on hemodialysis. He is on ferrous sulfate. His transferrin saturations are appropriate. He is on vitamin-D. I have asked him to continue current dose of calcitriol. I gave him [id number] Units of Procrit today. He should continue Renvela 800 mg tid with meals. All questions answered. Follow-up given Orders: Orders Complete Blood Count Auto Diff 1 Month D63.1 - Anemia in chronic kidney disease, E83.39 - Other disorders of phosphorus metabolism, I10 - Essential (primary) hypertension, N18.5 - Chronic kidney disease, stage 5, N25.81 - Secondary hyperparathyroidism of renal origin Creatinine 1 Month D63.1 - Anemia in chronic kidney disease, E83.39 - Other disorders of phosphorus metabolism, I10 - Essential (primary) hypertension, N18.5 - Chronic kidney disease, stage 5, N25.81 - Secondary hyperparathyroidism of renal origin Blood Urea Nitrogen 1 Month D63.1 - Anemia in chronic kidney disease, E83.39 - Other disorders of phosphorus metabolism, I10 - Essential (primary) hypertension, N18.5 - Chronic kidney disease, stage 5, N25.81 - Secondary hyperparathyroidism of renal origin Electrolytes 1 Month D63.1 - Anemia in chronic kidney disease, E83.39 - Other disorders of phosphorus metabolism, I10 - Essential (primary) hypertension, N18.5 - Chronic kidney disease, stage 5, N25.81 - Secondary hyperparathyroidism of renal origin AMB Epoetin Injection Practice Supplied Today D63.1 - Anemia in chronic kidney disease, N18.5 - Chronic kidney disease, stage 5 Calcium 1 Month D63.1 - Anemia in chronic kidney disease, E83.39 - Other disorders of phosphorus metabolism, I10 - Essential (primary) hypertension, N18.5 - Chronic kidney disease, stage 5, N25.81 - Secondary hyperparathyroidism of renal origin Phosphorus 1 Month D63.1 - Anemia in chronic kidney disease, E83.39 - Other disorders of phosphorus metabolism, I10 - Essential (primary) hypertension, N18.5 - Chronic kidney disease, stage 5, N25.81 - Secondary hyperparathyroidism of renal origin Parathyroid Hormone Intact 1 Month D63.1 - Anemia in chronic kidney disease, E83.39 - Other disorders of phosphorus metabolism, I10 - Essential (primary) hypertension, N18.5 - Chronic kidney disease, stage 5, N25.81 - Secondary hyperparathyroidism of renal origin Medications: New epoetin kj-epbx 20,000 units (2 mL) subcut ONCE 2 mL 0RF D63.1 - Anemia in chronic kidney disease, N18.5 - Chronic kidney disease, stage 5 Coding Level of Care Code Est Pt Level 4 (91783) Diagnoses Anemia in stage 5 chronic kidney disease, not on chronic dialysis N18.5; D63.1 Chronic kidney disease stage: stage 5, not on chronic dialysis Secondary hyperparathyroidism (of renal origin) N25.81 CKD (chronic kidney disease) stage 5, GFR less than 15 ml/min N18.5 Primary hypertension I10 Hypertension type: primary hypertension Hyperphosphatemia E83.39
[2024-07-02 14:20] VITALS: BP 144/70; BMI 21.3
--- OUTSIDE RECORDS SUMMARY | 2024-07-02 15:09 | XMS_ITS | Clinical Summary ---
Author Organization [facility] Address [address] [place] [address] Phone Care Team Providers Care Auxiliary Equipment Tender Name Role Phone Maynor Potts MD Primary Care Provider [phone] Allergies No known active allergies Medications aspirin 81 mg EC tablet Take 1 Tab by mouth daily. 10/30/2012 Active atorvastatin (LIPITOR) 20 mg tablet 20 mg. 10/30/2012 Active calcitrioL (ROCALTROL) 0.25 mcg capsule Take 1 Cap by mouth daily. 03/29/2018 Active cholecalciferol (VITAMIN D-3) 50 mcg (2,000 unit) capsule TAKE 1 CAPSULE BY MOUTH EVERY DAY 11/20/2023 Active ferrous sulfate 325 mg (65 mg elemental iron) tablet Take 1 tablet by mouth 2 times daily. 12/19/2017 Active OneTouch Ultra Test test strip Check twice a day. 02/15/2023 Active levothyroxine (SYNTHROID, LEVOTHROID) 150 mcg tablet Take 1 Tablet by mouth daily for 90 days. 02/03/2023 Active metoprolol tartrate (LOPRESSOR) 25 mg tablet Take 1 Tab by mouth 2 times daily. 03/30/2018 Active glucose blood (Blood Glucose Test) test strip 1 Strip by In Vitro route 3 times daily. DX: E11.9 02/07/2023 Active sodium bicarbonate 650 mg tablet Take 1 Tab by mouth 2 times daily. 03/29/2018 Active sodium polystyrene (KAYEXALATE) powder Take 1 g by mouth. 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 12/19/2017 CKD (chronic kidney disease) stage 5, GFR less than 15 ml/min 12/19/2017 Hyperlipidemia 12/19/2017 Hypertension 12/19/2017 Hypothyroidism 12/19/2017 Proteinuria 12/19/2017 Type 2 diabetes mellitus with cataract 8 AV fistula 08/16/2017 Vitamin B12 deficiency 11/09/2016 Cataract 12/25/2014 Overview (02/14/2024): S/p surgery Hyperparathyroidism 10/02/2013 Background diabetic retinopathy 03/01/2012 Overview (02/14/2024): S/p laser treatment Immunizations Name Administration Dates Next Due Pneumococcal conjugate 13 va lent (Prevnar 13, PCV13) 2mo and older 03/16/2016 Surgical History Surgery Date Site/Laterality Comments COLONOSCOPY PROCEDURE: HISTORICAL COLONOSCOPY CATARACT EXTRACTION PROCEDURE: HISTORICAL CATARACT REMOVAL EYE SURGERY PROCEDURE: HISTORICAL EYE SURGERY; COMMENT: laser treatment to retina OTHER SURGICAL HISTORY PROCEDURE: AV FISTULA OR GRAFT VENOUS Medical History Medical History Date Comments Anemia 04/19/2018 DX:Anemia AV fistula ([facility]) 08/16/2017 DX:AV fistu la ([facility]) Background diabetic retinopa thy ([facility]) 03/01/2012 DX:Background diabetic retin opathy ([facility]); COMMENT: S/p laser treatment Benign localized hyperplasia of prostate with urinary obstruction 12/19/2017 DX:Benign localized hyperpla faustino of prostate with urinary obstruction Cataract 12/25/2014 DX:Cataract; COM MENT: S/p surgery CKD (chronic kidney disease) stage 5, GFR less than 15 ml/min ([facility]) 12/19/2017 DX:CKD (chronic kidn ey disease) stage 5, GFR less than 15 ml/min ([facility]) Hyperlipidemia 12/19/2017 DX:Hyperlipidemi a Hyperparathyroidism ([facility]) 10/02/2013 DX :Hyperparathyroidism ([facility]) Hypertension 12/19/2017 DX:Hypertension Hypothyroidism 12/19/2017 DX:Hypothyroidis m Proteinuria 12/19/2017 DX:Proteinuria Type 2 diabetes mellitus wit h cataract ([facility]) 12/19/2017 DX:Type 2 diabetes mellitus with cataract (HCC) Type 2 diabetes mellitus wit h eye manifestations (CMS/HCC) 04/19/2018 DX:Type 2 diabetes mellitus with eye manifestations (HCC) Type 2 diabetes mellitus wit h renal manifestations (CMS/HCC) 04/19/2018 DX:Type 2 diabetes mellitus with renal manifestations (HCC) Vitamin B12 deficiency 11/09/2016 DX:Vitami n B12 deficiency Family History Medical History Relation Name Comments Other: laryngeal cancer Mother Relation Name Status Comments Father Mother Social History Tobacco Use Types Packs/Day Years Used Date Smoking Tobacco: Never Smokeless Tobacco: Never Alcohol Use Standard Drinks/Week Comments No 0 (1 standard drink = 0.6 oz pur e alcohol) Sex and Gender Information Value Date Recorded Sex Assigned at Not on file Legal Sex Male 2:33 PM EST Gender Identity Not on file Sexual Orientation Not on file Obstetrics History Last Filed Vital Signs Vital Sign Reading Time Taken Comments Blood Pressure 122/64 03/25/2024 11:48 AM EST Pulse 64 03/25/2024 11:48 AM EST Temperature 37 ??C (98.6 ??F) 03/25/2024 11:48 AM EST Respiratory Rate - - Oxygen Saturation 98% 03/25/2024 11:48 AM EST Inhaled Oxygen Concentration - - Weight 57.6 kg (127 lb) 03/25/2024 11:48 AM EST Height - - Body Mass Index - - Plan of Treatment Upcoming Encounters Date Type Department Care Team ([facility] st Contact Info) Description 09/23/2024 9:45 AM EDT Office Visit Internal Medicine - [place] [address] [place] [id number] Maynor Potts MD [address] [facility] [address] [place] [address] Health Maintenance Due Date Last Done Comments Diabetes: Annual Foot Exam 1955 Diabetes: Annual Retina Eye Exam 1955 DTaP,Tdap,and Td Vaccines (1 - Tdap) 1965 Zoster Vaccines (1 of 2) 1996 RSV Immunization Patients 60+ Years Old (1 - 1-dose 75+ series) 2021 Depression Screening 04/23/2022 Falls Risk Assessment 04/23/2022 Hepatitis C Screening 04/23/2022 Medicare Annual Wellness Visit 04/23/2022 Social Influencers of Health Screening 04/23/2022 Diabetes: Blood Sugar Control Test (HGBA1C) 10/24/2023 04/24/2023 COVID-19 Vaccine ( season) 2024 03/31/2023, 03/17/2022, 08/23/2021, Additional history exists Influenza Vaccine (#1) 2024 02/12/2017 Hypertension/CHF/CAD Annual BMP Blood Test 06/17/2025 06/17/2024, 04/17/2024, 04/24/2023 Cholesterol Screening (Lipid Panel) 04/24/2028 04/24/2023 Pneumococcal Vaccine: 50+ Years Completed 03/16/2016, 01/13/2013 HIB Vaccines Aged Out No longer eligi ble based on patient's age to complete this topic HPV Vaccines Aged Out No longer eligi ble based on patient's age to complete this topic Hepatitis A Vaccines Aged Out No long er eligible based on patient's age to complete this topic Hepatitis B Vaccines Aged Out No long er eligible based on patient's age to complete this topic IPV Vaccines Aged Out No longer eligi ble based on patient's age to complete this topic MMR Vaccines Aged Out No longer eligi ble based on patient's age to complete this topic Meningococcal ACWY Vaccine Aged Out N o longer eligible based on patient's age to complete this topic Meningococcal B Vacine Aged Out No lo nger eligible based on patient's age to complete this topic RSV Immunization Patients Under 20 months Aged Out No longer eligible based on patient's age to complete this topic Varicella Vaccines Aged Out No longer eligible based on patient's age to complete this topic Procedures Procedure Name Priority Date/Time Associated Diagnosis Comments CBC WITH AUTO DIFFERENTIAL Routine 06/17/2024 8:13 AM EST Chronic kidney disease, stage V (CMS/HCC) Erythropoietin deficiency anemia BUN Routine 06/17/2024 8:13 AM EST Chronic kidney disease, stage V (CMS/HCC) Erythropoietin deficiency anemia ELECTROLYTE PANEL Routine 06/17/2024 8:1 3 AM EST Chronic kidney disease, stage V (CMS/HCC) Erythropoietin deficiency anemia CBC AND DIFFERENTIAL Routine 06/17/2024 8:13 AM EST Chronic kidney disease, stage V (CMS/HCC) Erythropoietin deficiency anemia CALCIUM Routine 06/17/2024 8:13 AM EST Chronic kidney disease, stage V (CMS/HCC) Erythropoietin deficiency anemia CREATININE, SERUM Routine 06/17/2024 8:1 3 AM EST Chronic kidney disease, stage V (CMS/HCC) Erythropoietin deficiency anemia CBC WITH AUTO DIFFERENTIAL Routine 04/17/2024 9:24 AM EST Type 2 diabetes mellitus with other diabetic kidney complication, without long-term current use of insulin ([facility]) Primary hypertension Pure hypercholesterolemi a Hypothyroidism, unspecified type THYROID STIMULATING HORMONE Routine 04/17/2024 9:24 AM EST Type 2 diabetes mellitus with other diabetic kidney complication, without long-term current use of insulin ([facility]) Primary hypertension Pure hypercholesterolemi a Hypothyroidism, unspecified type COMPREHENSIVE METABOLIC PANEL Routine 04/17/2024 9:24 AM EST Type 2 diabetes mellitus with other diabetic kidney complication, without long-term current use of insulin ([facility]) Primary hypertension Pure hypercholesterolemi a Hypothyroidism, unspecified type CBC AND DIFFERENTIAL Routine 04/17/2024 9:24 AM EST Type 2 diabetes mellitus with other diabetic kidney complication, without long-term current use of insulin ([facility]) Primary hypertension Pure hypercholesterolemi a Hypothyroidism, unspecified type HEMOGLOBIN A1C Routine 04/24/2023 LIPID PANEL Routine 04/24/2023 from Last 3 Months or Most Recently Relevant to Health Maintenance Results * (ABNORMAL) CBC auto differential (06/17/2024 8:13 AM EST) Only the most recent of2 resultswithin the time period is included. WBC 4.9 4.8 - 10.8 K/mcL LAB HEMETOLOGY METHOD 06/17/2024 10:36 AM [facility] RBC 3.10(L) 4.50 - 5.50 M/mcL LAB HEMETOLOGY METHOD 06/17/2024 10:36 AM [facility] Hemoglobin 9.1(L) 13.5 - 17.5 g/dL LAB HEMETOLOGY METHOD 06/17/2024 10:36 AM [facility] Hematocrit 30.2(L) 42.0 - 54.0 % LAB HEMETOLOGY METHOD 06/17/2024 10:36 AM [facility] MCV 98.7(H) 79.0 - 98.0 FL LAB HEMETOLOGY METHOD 06/17/2024 10:36 AM [facility] MCH 29.7 27.0 - 32.0 pcg LAB HEMETOLOGY METHOD 06/17/2024 10:36 AM [facility] MCHC 30.1(L) 32.0 - 37.0 g/dL LAB HEMETOLOGY METHOD 06/17/2024 10:36 AM [facility] RDW 13.9 11.0 - 15.0 % LAB HEMETOLOGY METHOD 06/17/2024 10:36 AM [facility] Platelets 183 130 - 400 K/mcL LAB HEMETOLOGY METHOD 06/17/2024 10:36 AM [facility] MPV 11.6(H) 7.0 - 11.0 FL LAB HEMETOLOGY METHOD 06/17/2024 10:36 AM [facility] NRBC 0.0 <1.0 % LAB HEMETOLOGY METHOD 06/17/2024 10:36 AM [facility] NRBC Absolute 0.00 <0.10 K/mcL LAB HEMETOLOGY METHOD 06/17/2024 10:36 AM [facility] Neutrophils Relative 53.4 % LAB HEMETOLOGY METHOD 06/17/2024 10:36 AM [facility] Lymphocytes Relative 34.3 % LAB HEMETOLOGY METHOD 06/17/2024 10:36 AM [facility] Monocytes Relative 11.5 % LAB HEMETOLOGY METHOD 06/17/2024 10:36 AM [facility] Eosinophils Relative 0.4 % LAB HEMETOLOGY METHOD 06/17/2024 10:36 AM [facility] Basophils Relative 0.2 % LAB HEMETOLOGY METHOD 06/17/2024 10:36 AM [facility] Immature Granulocytes Relative 0.2 % LAB HEMETOLOGY METHOD 06/17/2024 10:36 AM [facility] Neutrophils Absolute 2.60 1.50 - 7.00 K/mcL LAB HEMETOLOGY METHOD 06/17/2024 10:36 AM [facility] Lymphocytes Absolute 1.67 1.00 - 5.00 K/mcL LAB HEMETOLOGY METHOD 06/17/2024 10:36 AM [facility] Monocytes Absolute 0.56 0.20 - 1.00 K/mcL LAB HEMETOLOGY METHOD 06/17/2024 10:36 AM [facility] Eosinophils Absolute 0.02 0.00 - 0.50 K/mcL LAB HEMETOLOGY METHOD 06/17/2024 10:36 AM [facility] Basophils Absolute 0.01 0.00 - 0.20 K/mcL LAB HEMETOLOGY METHOD 06/17/2024 10:36 AM [facility] Immature Granulocytes Absolute 0.01 0.00 - 0.03 K/mcL LAB HEMETOLOGY METHOD 06/17/2024 10:36 AM [facility] Blood Venous blood specimen / Unknown Venipuncture / Unknown 06/17/2024 8:13 AM EST 06/17/2024 9:56 AM EST us Matthieu Berrios MD LAB BLOOD ORDERABLES Final Resul t Performing Organization Address City/[facility]/ZIP Co de Phone Number [facility] [address] [place] [address], [place] [phone] * (ABNORMAL) Creatinine (06/17/2024 8:13 AM EST) Creatinine 9.25(H) 0.70 - 1.30 mg/dL LAB CHEMISTRY METHOD 06/17/2024 11:20 AM EST [facility] eGFR 5(L) >=60 mL/min/1. 73m2 LAB CHEMISTRY METHOD 06/17/2024 11:20 AM EST [facility] Comment:Calculation based on the??Chronic Kidney Disease Epidemiology Collaboration (CKD-EPI) equation refit??without adjustment for race. Blood Venous blood specimen / Unknown Venipuncture / Unknown 06/17/2024 8:13 AM EST 06/17/2024 9:56 AM EST us Matthieu Berrios MD LAB BLOOD ORDERABLES Final Resul t Performing Organization Address [facility] Co de Phone Number [facility] [address] [place] [address], [place] [phone] * (ABNORMAL) BUN (06/17/2024 8:13 AM EST) BUN 97(H) 5 - 25 mg/dL LAB CHEMISTRY METHOD 06/17/2024 11:20 AM EST [facility] Blood Venous blood specimen / Unknown Venipuncture / Unknown 06/17/2024 8:13 AM EST 06/17/2024 9:56 AM EST us Matthieu Berrios MD LAB BLOOD ORDERABLES Final Resul t Performing Organization Address City/[facility]/ZIP Co de Phone Number [facility] [address] [place] [address], [place] [phone] * Calcium (06/17/2024 8:13 AM EST) Calcium 9.2 8.5 - 10.5 mg/dL LAB CHEMISTRY METHOD 06/17/2024 11:05 AM [facility] Blood Venous blood specimen / Unknown Venipuncture / Unknown 06/17/2024 8:13 AM EST 06/17/2024 9:56 AM EST Matthieu Berrios MD LAB BLOOD ORDERABLES Final Resul t Performing Organization Address [facility]/ZIP Co de Phone Number [facility] [address] [place] [address], [place] [phone] * Electrolyte panel (06/17/2024 8:13 AM EST) Sodium 140 133 - 145 mmol/L LAB CHEMISTRY METHOD 06/17/2024 11:18 AM [facility] Potassium 5.0 3.5 - 5.5 mmol/L LAB CHEMISTRY METHOD 06/17/2024 11:18 AM [facility] Chloride 109 96 - 110 mmol/L LAB CHEMISTRY METHOD 06/17/2024 11:18 AM [facility] CO2 21 21 - 32 mmol/L LAB CHEMISTRY METHOD 06/17/2024 11:18 AM [facility] Anion Gap 10 3 - 11 LAB CHEMISTRY METHOD 06/17/2024 11:18 AM [facility] Blood Venous blood specimen / Unknown Venipuncture / Unknown 06/17/2024 8:13 AM EST 06/17/2024 9:56 AM EST us Matthieu Berrios MD LAB BLOOD ORDERABLES Final Resul t Performing Organization Address City/[facility]/ZIP Co de Phone Number [facility] [address] [place] [address], [place] [phone] * (ABNORMAL) Thyroid stimulating hormone (04/17/2024 9:24 AM EST) TSH 5.59(H) 0.40 - 4.00 mcIU/mL LAB CHEMISTRY METHOD 04/17/2024 10:52 AM [facility] Blood Venous blood specimen / Unknown Venipuncture / Unknown 04/17/2024 9:24 AM EST 04/17/2024 9:56 AM EST us Maynor Potts MD LAB BLOOD ORDERABLES Final Resul t [facility] [address] [place] [address], [place] [phone] * (ABNORMAL) Comprehensive metabolic panel (04/17/2024 9:24 AM EST) Pathologist [facility] Sodium 142 133 - 145 mmol/L LAB CHEMISTRY METHOD 04/17/2024 11:01 AM [facility] Potassium 5.8(H) 3.5 - 5.5 mmol/L LAB CHEMISTRY METHOD 04/17/2024 11:01 AM [facility] Chloride 116(H) 96 - 110 mmol/L LAB CHEMISTRY METHOD 04/17/2024 11:01 AM [facility] CO2 18(L) 21 - 32 mmol/L LAB CHEMISTRY METHOD 04/17/2024 11:01 AM [facility] Anion Gap 8 3 - 11 LAB CHEMISTRY METHOD 04/17/2024 11:01 AM [facility] Glucose 79 70 - 100 mg/dL LAB CHEMISTRY METHOD 04/17/2024 11:01 AM [facility] BUN 103(H) 5 - 25 mg/dL LAB CHEMISTRY METHOD 04/17/2024 11:01 AM [facility] Comment:Results verified by repeat testing Creatinine 9.88(H) 0.70 - 1.30 mg/dL LAB CHEMISTRY METHOD 04/17/2024 11:01 AM [facility] Comment:Results verified by repeat testing eGFR 5(L) >=60 mL/min/1. 73m2 LAB CHEMISTRY METHOD 04/17/2024 11:01 AM [facility] Comment:Calculation based on the??Chronic Kidney Disease Epidemiology Collaboration (CKD-EPI) equation refit??without adjustment for race. BUN/Creatinine Ratio 10.4 LAB CHEMISTRY METHOD 04/17/2024 11:01 AM [facility] Calcium 8.9 8.5 - 10.5 mg/dL LAB CHEMISTRY METHOD 04/17/2024 11:01 AM [facility] AST (SGOT) 8(L) 10 - 42 unit/L LAB CHEMISTRY METHOD 04/17/2024 11:01 AM [facility] ALT (SGPT) 9(L) 10 - 60 unit/L LAB CHEMISTRY METHOD 04/17/2024 11:01 AM [facility] Alkaline Phosphatase 54 42 - 121 unit/L LAB CHEMISTRY METHOD 04/17/2024 11:01 AM [facility] Total Protein 6.8 6.0 - 8.0 g/dL LAB CHEMISTRY METHOD 04/17/2024 11:01 AM [facility] Albumin 4.1 3.2 - 5.0 g/dL LAB CHEMISTRY METHOD 04/17/2024 11:01 AM [facility] Total Bilirubin 0.4 0.0 - 1.4 mg/dL LAB CHEMISTRY METHOD 04/17/2024 11:01 AM [facility] Blood Venous blood specimen / Unknown Venipuncture / Unknown 04/17/2024 9:24 AM EST 04/17/2024 9:56 AM EST us Maynor Potts MD LAB BLOOD ORDERABLES Final Resul t [facility] [address] [place] [address], * Hemoglobin A1c (04/24/2023) Hemoglobin A1C 5.2 <=6.5 % Blood Venous blood specimen / Unknown [facility] Provider LAB BLOOD ORDERABLES Domitila l Result * Lipid panel (04/24/2023) LDL/HDL Ratio 3 0 - 4 Triglycerides 69 0 - 150 mg/dL Cholesterol 152 0 - 200 mg/dL HDL 50 >=40 mg/dL LDL Cholesterol 89 0 - 100 mg/dL Blood Venous blood specimen / Unknown [facility] Provider LAB BLOOD ORDERABLES Domitila l Result from Last 3 Months or Most Recently Relevant to Health Maintenance Insurance [employer] Care Teams Auxiliary Equipment Tender Relationship Specialty Start Date End Date Maynor Potts MD [address] [address] PCP - General Internal Medicine 11/26/20
--- OUTSIDE RECORDS SUMMARY | 2024-07-02 15:09 | XMS_ITS | Encounter Summary ---
Author Organization [facility] Address [address] [facility] [address] [place] [address] Phone Care Team Providers Care Sign Hanger Name Role Phone Maynor Potts MD Primary Care Provider [phone] Encounter Details Date Type Department Care Team ([facility] st Contact Info) Description 05/29/2023 Office Communication [facility] [address] [facility] [address] [place] [phone] Mayco Hernandez MD [address] [facility] [address] [place] [phone] Social History Tobacco Use Types Packs/Day Years Used Date Smoking Tobacco: Never Smokeless Tobacco: Never Alcohol Use Standard Drinks/Week Comments No 0 (1 standard drink = 0.6 oz pur e alcohol) Sex and Gender Information Value Date Recorded Sex Assigned at Not on file Legal Sex Male 5:06 PM EST Gender Identity Not on file Sexual Orientation Not on file documented as of this encounter Miscellaneous Notes * Telephone Encounter - Deja Carmen - 05/30/2023 7:58 AM EST Scheduled 06/23/2023 Dr Kapoor * Telephone Encounter - Mayco Hernandez MD - 05/29/2023 8:57 PM EST Offer f/u in 3-4 wks with an RTANE doc documented in this encounter Plan of Treatment Not on file documented as of this encounter Visit Diagnoses Not on filedocumented in this encounter Care Teams Sign Hanger Relationship Specialty Start Date End Date Maynor Potts MD [address] [address] PCP - General Internal Medicine 08/27/20 documented as of this encounter
--- OUTSIDE RECORDS SUMMARY | 2024-07-02 15:09 | XMS_ITS | Clinical Summary ---
Author Organization [facility] Address [address] [facility] [address] [place] [address] Phone Care Team Providers Care Teacher Hearing Impaired Name Role Phone Maynor Potts MD Primary Care Provider [phone] Allergies No known active allergies Medications aspirin (ST SUSAN) 81 MG EC tablet Take 1 tablet by mouth 1 (one) time each day Active atorvastatin (LIPITOR) 20 MG tablet Take 1 tablet by mouth 1 (one) time each day Active cyanocobalamin (VITAMIN B-12) 1000 MCG/ML injection every 30 (thirty) days 1 Active OneTouch Ultra test strip 1 Active levothyroxine sodium (TIROSINT) 112 MCG capsule Take 150 mcg by mouth 1 (one) time each day Active sodium polystyrene sulfonate (KAYEXALATE) powder TAKE 15 GRAM DISSOLVED IN WATER THREE TIMES A WEEK 454 g 6 3 Active calcitriol (ROCALTROL) 0.25 MCG capsule TAKE 1 CAPSULE BY MOUTH EVERY DAY 90 capsule 1 3 Active cholecalciferol (VITAMIN D-3) 50 MCG (1999 UT) capsule TAKE 1 CAPSULE BY MOUTH EVERY DAY 90 capsule 1 3 Active ferrous sulfate 325 (65 Fe) MG tablet TAKE 1 TABLET BY MOUTH TWICE A DAY 180 tablet 1 3 Active metoprolol tartrate 25 MG tablet Take 1 tablet (25 mg total) by mouth in the morning and 1 tablet (25 mg total) in the evening. 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 0 08/27/2020 Immunizations Name Administration Dates Next Due Influenza Split High Dose Preservative Free IM 1 Pneumococcal Polysaccharide 01/13/2013 Family History Medical History Relation Comments Diabetes Mother Hypertension Mother Relation Status Comments Father Mother Social History Tobacco Use Types Packs/Day Years Used Date Smoking Tobacco: Never Smokeless Tobacco: Never Tobacco Cessation:Counseling Given: Not Answered Alcohol Use Standard Drinks/Week Comments No 0 (1 standard drink = 0.6 oz pur e alcohol) Sex and Gender Information Value Date Recorded Sex Assigned at Not on file Legal Sex Male 5:06 PM EST Gender Identity Not on file Sexual Orientation Not on file Last Filed Vital Signs Vital Sign Reading Time Taken Comments Blood Pressure 136/60 03/08/2023 1:47 PM EDT Pulse 67 03/08/2023 1:47 PM EDT Temperature - - Respiratory Rate - - Oxygen Saturation 98% 03/08/2023 1:47 PM EDT Inhaled Oxygen Concentration - - Weight 62.6 kg (138 lb) 03/08/2023 1:47 PM EDT Height 167.6 cm (5' 6 ) 03/26/2021 1:14 PM EST Body Mass Index 22.27 03/26/2021 1:14 PM EST Plan of Treatment Health Maintenance Due Date Last Done Comments Pneumococcal Vaccine: 65+ Ye ars (2 of 2 - PCV) 01/13/2014 01/13/2013 Influenza Vaccine (#1) 2024 02/12/2017 Hepatitis B Vaccine Aged Out No longe r eligible based on patient's age to complete this topic Insurance [employer] Care Teams Teacher Hearing Impaired Relationship Specialty Start Date End Date Maynor Potts MD [address] [place] [id number] PCP - General Internal Medicine 08/27/20
== END 2024-07-02 14:46 | disposition home or self-care (01) ==
PROVIDERS: PCP Internal Medicine; Visit Provider Internal Medicine Nephrology
DX: N18.5 Chronic kidney disease, stage 5 (principal); D63.1 Anemia in chronic kidney disease; N25.81 Secondary hyperparathyroidism of renal origin; I12.0 Hypertensive chronic kidney disease with stage 5 chronic kidney disease or end stage renal disease; E83.39 Other disorders of phosphorus metabolism
CPT/HCPCS: 99214

== ENCOUNTER → 2024-07-02 14:06 | Outpatient (BNVA) | payer OTHER, SELFPAY | PROVIDERS: PCP Internal Medicine; Visit Provider Internal Medicine Nephrology | DX: I12.0 Hypertensive chronic kidney disease with stage 5 chronic kidney disease or end stage renal disease (principal); N18.5 Chronic kidney disease, stage 5; D63.1 Anemia in chronic kidney disease; N25.81 Secondary hyperparathyroidism of renal origin; E83.39 Other disorders of phosphorus metabolism | CPT/HCPCS: 96372; Q5106 ==

== ENCOUNTER 2024-07-30 09:39 | Outpatient (REF) | payer OTHER, SELFPAY ==
[2024-07-30 18:46] LABS: MANUAL DIFF FLAG NO
[2024-07-30 19:07] LABS: Basophils Percent Auto 0.2 % (0-2); Eosinophils Percent Auto 0.2 % (0-4); Hematocrit 29.3 % (42.0-52.0); Imm Gran Abs Auto 0.01 X10*3/uL (0.00-0.03); Imm Gran Pct Auto 0.2 % (0.0-0.4); Lymphocytes Absolute Auto 1.3 X10*3/uL (1.2-4.9); Lymphocytes Percent Auto 30.3 % (20-40); Mean Corpuscular HGB Conc 30.7 g/dl (31.0-36.0); Mean Corpuscular Volume 97.7 fL (80.0-98.0); Mean Platelet Volume 12.5 fL (9.4-12.4); Monocytes Absolute Auto 0.4 X10*3/uL (0.1-1.2); Monocytes Percent Auto 10.7 % (2-11); Neutrophils Absolute Auto 2.4 x10*3/uL (2.0-8.3); Neutrophils Percent Auto 58.4 % (45-73); Platelet Count 149 X10*3/uL (160-400); Red Cell Distribution Width 15.7 % (11.0-16.0); White Blood Count 4.1 X10*3/uL (4.8-10.8)
[2024-07-30 19:34] LABS: Anion Gap 16 (12-20); Blood Urea Nitrogen 94 mg/dL (9-16); Calcium 8.6 mg/dL (8.4-10.2); Carbon Dioxide 19 mmol/L (22-29); Chloride 112 mmol/L (96-108); Estimated Glomerular Filt Rate 6; Phosphorus 3.8 mg/dL (2.7-4.5); Potassium 5.3 mmol/L (3.3-5.1); Sodium 142 mmol/L (135-145)
== END 2024-07-30 09:40 | disposition home or self-care (01) ==
LOC: HO.HKASLDS 09:39
PROVIDERS: PCP Internal Medicine; Visit Provider Internal Medicine Nephrology
DX: I12.9 Hypertensive chronic kidney disease with stage 1 through stage 4 chronic kidney disease, or unspecified chronic kidney disease (principal); D63.1 Anemia in chronic kidney disease; N25.81 Secondary hyperparathyroidism of renal origin; E83.39 Other disorders of phosphorus metabolism; N18.5 Chronic kidney disease, stage 5; Z79.899 Other long term (current) drug therapy
CPT/HCPCS: 36415; 80051; 82310; 82565; 83970; 84100; 84520; 85025; 96372; Q5106

== ENCOUNTER 2024-07-30 09:39 | Outpatient (AMB) | payer OTHER, SELFPAY ==
[2024-07-30 09:44] VITALS: BP 150/60; BMI 22.0
--- NOTE | 2024-07-30 09:44 | HO.NEPHOV ---
Vital Signs 07/30/24 09:44 Height 5 ft 6 in Weight 136 lb 6 oz BMI 22.0 BP 150/60 H Blood Pressure Location Lt brachial Position Sitting Intake Visit Reasons: 1mon follow-up w/labs-Conf Fare Register Repairer Required: No Allergies No Known Allergies Allergy (Verified 07/30/24 09:46) Do you need a note to return to daycare/school/sports/work: No HPI Comments Details: Maik was seen in follow-up of his advanced chronic kidney disease, hypertension and anemia of chronic disease along with secondary hyperparathyroidism of renal origin. He denies any uremic symptoms or hypoglycemias. His weight is stable. His blood sugar well controlled. He denies any nausea, vomiting, shortness of breath, pedal edema, urinary symptoms, tremors, confusion, chest pain. Otherwise there were no new active complaints at the time of this office visit [facility] Medical History AVF (arteriovenous fistula) Secondary hyperparathyroidism (of renal origin) Anemia in chronic kidney disease (CKD) Hypertension CKD (chronic kidney disease) stage 5, GFR less than 15 ml/min Surgical History History of eye surgery History of cataract surgery Social History Alcohol intake: never Patient Tobacco Use Status: Never used Tobacco Review of Systems Const All systems reviewed & are unremarkable except as noted in HPI and below Physical Exam Vital Signs: Last Vital Signs BP 150/60 H 07/30/24 09:44 BMI result Body Mass Index 22.0 Const General: comfortable and no acute distress Orientation/consciousness: patient oriented x3 HEENT Head: Yes normocephalic Mouth: Normal oral and palatal mucosa present Eyes EOM: EOMs intact bilaterally Neck Neck: Yes supple Resp Auscultation: clear to auscultation bilaterally Cardio Jugular venous distension: no JVD Rate: regular rate GI Palpation (GI): Soft to palpation Auscultation: normal bowel sounds General: Yes no CVA tenderness Back/Spine/Pelvis Back: no CVA tenderness Skin General skin exam: no rashes or lesions noted Neuro General: patient oriented x3 and moves all extremities Extrem General: Yes no pedal edema Office Meds epoetin [id number] 10,000 unit/mL injection solution Performing Provider: Matthieu Berrios MD Performing Location: [facility] Administered by: Matthieu Berrios MD on 07/30/24 09:53 Dose Route Admin Location Dispensed Lot Number Expiration Date [facility] Consumer Relations Specialist 40,000 unit subcut lue 4 mL [id number] 11/12/25 7894-7302-07 [employer] Results Reviewed Nephrology Results: No Data to Display Assessment & Plan Assessment & Plan (1) Anemia in chronic kidney disease (CKD): Code(s): N18.9 - Chronic kidney disease, unspecified; D63.1 - Anemia in chronic kidney disease Category: Medical Qualifiers: Chronic kidney disease stage: stage 5, not on chronic dialysis Qualified Code(s): N18.5 - Chronic kidney disease, stage 5; D63.1 - Anemia in chronic kidney disease (2) Secondary hyperparathyroidism (of renal origin): Code(s): N25.81 - Secondary hyperparathyroidism of renal origin Category: Medical (3) Hypertension: Code(s): I10 - Essential (primary) hypertension Category: Medical Qualifiers: Hypertension type: primary hypertension Qualified Code(s): I10 - Essential (primary) hypertension (4) CKD (chronic kidney disease) stage 5, GFR less than 15 ml/min: Code(s): N18.5 - Chronic kidney disease, stage 5 Category: Medical (5) Hyperkalemia: Code(s): E87.5 - Hyperkalemia Category: Medical Plan Maik has 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 He denies uremic symptoms. He has a functioning AV fistula. His blood pressure has been at goal at home. He should continue Kayexalate . He is on sodium bicarbonate . He has declined transplant evaluation in the past. There are no clinical indication for him to be initiated on hemodialysis. He is on ferrous sulfate. His transferrin saturations are appropriate. He is on vitamin-D. I have asked him to continue current dose of calcitriol. I gave him [id number] Units of Procrit today. He should continue Renvela 800 mg tid with meals. All questions answered. Follow-up given Orders: Orders AMB Epoetin Injection Practice Supplied Today D63.1 - Anemia in chronic kidney disease, N18.5 - Chronic kidney disease, stage 5 Blood Urea Nitrogen 4 Weeks D63.1 - Anemia in chronic kidney disease, I10 - Essential (primary) hypertension, N18.5 - Chronic kidney disease, stage 5, N25.81 - Secondary hyperparathyroidism of renal origin Electrolytes 4 Weeks D63.1 - Anemia in chronic kidney disease, I10 - Essential (primary) hypertension, N18.5 - Chronic kidney disease, stage 5, N25.81 - Secondary hyperparathyroidism of renal origin Electrolytes 1 Day E87.5 - Hyperkalemia Complete Blood Count Auto Diff 4 Weeks D63.1 - Anemia in chronic kidney disease, I10 - Essential (primary) hypertension, N18.5 - Chronic kidney disease, stage 5, N25.81 - Secondary hyperparathyroidism of renal origin Creatinine 4 Weeks D63.1 - Anemia in chronic kidney disease, I10 - Essential (primary) hypertension, N18.5 - Chronic kidney disease, stage 5, N25.81 - Secondary hyperparathyroidism of renal origin Coding Level of Care Code Est Pt Level 4 (47053) Diagnoses Anemia in stage 5 chronic kidney disease, not on chronic dialysis N18.5; D63.1 Chronic kidney disease stage: stage 5, not on chronic dialysis Secondary hyperparathyroidism (of renal origin) N25.81 Primary hypertension I10 Hypertension type: primary hypertension CKD (chronic kidney disease) stage 5, GFR less than 15 ml/min N18.5 Hyperkalemia E87.5
--- OUTSIDE RECORDS SUMMARY | 2024-07-30 10:38 | XMS_ITS | Clinical Summary ---
Author Organization [facility] Address [address] [facility] [address] [place] [address] Phone Care Team Providers Care Faucet Polisher Name Role Phone Maynor Potts MD Primary Care Provider [phone] Allergies No known active allergies Medications aspirin [...] HEALTH MEDICARE [facility] Care Teams Faucet Polisher Relationship Specialty Start Date End Date Maynor Potts MD [address] [place] [id number] PCP - General Internal Medicine 08/27/20
--- OUTSIDE RECORDS SUMMARY | 2024-07-30 10:38 | XMS_ITS | Encounter Summary ---
Author Organization [facility] Address [address] [facility] [address] [place] [address] Phone Care Team Providers Care Regional Telecommunications Specialist Name Role Phone Maynor Potts MD Primary Care Provider [phone] Encounter Details Date Type Department Care Team ([facility] st Contact Info) Description 05/29/2023 Office Communication [facility] [address] [facility] [address] [place] [phone] Mayco Hernandez MD [address] [facility] [address] [place] [phone] Social History Tobacco Use Types Packs/Day Years [...] on filedocumented in this encounter Care Teams Regional Telecommunications Specialist Relationship Specialty Start Date End Date Maynor Potts MD [address] [address] PCP - General Internal Medicine 08/27/20 documented as of this encounter
--- OUTSIDE RECORDS SUMMARY | 2024-07-30 10:38 | XMS_ITS | Clinical Summary ---
Author Organization [facility] Address [address] [place] [address] Phone Care Team Providers Care Security Administrator Name Role Phone Maynor Potts MD Primary Care Provider [phone] Allergies No known active allergies Medications aspirin [...] Date Comments Anemia 04/19/2018 DX:Anemia AV fistula ([facility]) 08/16/2017 DX:AV fistu la ([facility]) Background diabetic retinopa thy ([facility]) 03/01/2012 DX:Background diabetic retin opathy ([facility]); COMMENT: S/p laser treatment Benign localized hyperplasia of prostate with urinary obstruction 12/19/2017 DX:Benign localized hyperpla faustino of prostate with urinary obstruction Cataract 12/25/2014 DX:Cataract; COM MENT: S/p surgery CKD (chronic kidney disease) stage 5, GFR less than 15 ml/min ([facility]) 12/19/2017 DX:CKD (chronic kidn ey disease) stage 5, GFR less than 15 ml/min ([facility]) Hyperlipidemia 12/19/2017 DX:Hyperlipidemi a Hyperparathyroidism ([facility]) 10/02/2013 DX :Hyperparathyroidism ([facility]) Hypertension 12/19/2017 DX:Hypertension Hypothyroidism 12/19/2017 DX:Hypothyroidis m Proteinuria 12/19/2017 DX:Proteinuria Type 2 diabetes mellitus wit h cataract ([facility]) 12/19/2017 DX:Type 2 diabetes mellitus with cataract [...] Upcoming Encounters Date Type Department Care Team ([facility] st Contact Info) Description 09/23/2024 9:45 AM EDT Office Visit Internal Medicine - [place] [address] [facility] [address] [place] [phone] Maynor Potts MD [address] [facility] [address] [place] [address] Health Maintenance Due Date Last Done Comments [...] 2024 02/12/2017 Hypertension/CHF/CAD Annual BMP Blood Test 07/23/2025 07/23/2024, 06/17/2024, 04/17/2024, Additional history exists Cholesterol Screening (Lipid Panel) 04/24/2028 04/24/2023 Pneumococcal [...] Diagnosis Comments CBC WITH AUTO DIFFERENTIAL Routine 07/23/2024 8:30 AM EDT Hypophosphaturia Chronic kidney disease, stage V (CMS/HCC) Essential hypertension, benign Anemia of chronic renal failure Secondary hyperparathyroidism , renal (CMS/HCC) PARATHYROID HORMONE INTACT Routine 07/23/2024 8:30 AM EDT Hypophosphaturia Chronic kidney disease, stage V (CMS/HCC) Essential hypertension, benign Anemia of chronic renal failure Secondary hyperparathyroidism , renal (CMS/HCC) PHOSPHORUS Routine 07/23/2024 8:30 AM EDT Hypophosphaturia Chronic kidney disease, stage V (CMS/HCC) Essential hypertension, benign Anemia of chronic renal failure Secondary hyperparathyroidism , renal (CMS/HCC) CALCIUM Routine 07/23/2024 8:30 AM EDT Hypophosphaturia Chronic kidney disease, stage V (CMS/HCC) Essential hypertension, benign Anemia of chronic renal failure Secondary hyperparathyroidism , renal (CMS/HCC) ELECTROLYTE PANEL Routine 07/23/2024 8:3 0 AM EDT Hypophosphaturia Chronic kidney disease, stage V (CMS/HCC) Essential hypertension, benign Anemia of chronic renal failure Secondary hyperparathyroidism , renal (CMS/HCC) BUN Routine 07/23/2024 8:30 AM EDT Hypophosphaturia Chronic kidney disease, stage V (CMS/HCC) Essential hypertension, benign Anemia of chronic renal failure Secondary hyperparathyroidism , renal (CMS/HCC) CREATININE, SERUM Routine 07/23/2024 8:3 0 AM EDT Hypophosphaturia Chronic kidney disease, stage V (CMS/HCC) Essential hypertension, benign Anemia of chronic renal failure Secondary hyperparathyroidism , renal (CMS/HCC) CBC AND DIFFERENTIAL Routine 07/23/2024 8:30 AM EDT Hypophosphaturia Chronic kidney disease, stage V (CMS/HCC) Essential hypertension, benign Anemia of chronic renal failure Secondary hyperparathyroidism , renal (CMS/HCC) CBC WITH AUTO DIFFERENTIAL Routine 06/17/2024 8:13 [...] disease, stage V (CMS/HCC) Erythropoietin deficiency anemia HEMOGLOBIN A1C Routine 04/24/2023 LIPID PANEL Routine 04/24/2023 from Last 3 Months or Most Recently Relevant to Health Maintenance Results * (ABNORMAL) CBC auto differential (07/23/2024 8:30 AM EDT) Only the most recent of2 resultswithin the time period is included. WBC 5.3 4.8 - 10.8 K/mcL LAB HEMETOLOGY METHOD 07/23/2024 8:49 AM [facility] RBC 3.00(L) 4.50 - 5.50 M/mcL LAB HEMETOLOGY METHOD 07/23/2024 8:49 AM [facility] Hemoglobin 8.9(L) 13.5 - 17.5 g/dL LAB HEMETOLOGY METHOD 07/23/2024 8:49 AM [facility] Hematocrit 29.8(L) 42.0 - 54.0 % LAB HEMETOLOGY METHOD 07/23/2024 8:49 AM [facility] MCV 100.7(H) 79.0 - 98.0 FL LAB HEMETOLOGY METHOD 07/23/2024 8:49 AM [facility] MCH 30.1 27.0 - 32.0 pcg LAB HEMETOLOGY METHOD 07/23/2024 8:49 AM [facility] MCHC 29.9(L) 32.0 - 37.0 g/dL LAB HEMETOLOGY METHOD 07/23/2024 8:49 AM [facility] RDW 15.5(H) 11.0 - 15.0 % LAB HEMETOLOGY METHOD 07/23/2024 8:49 AM [facility] Platelets 162 130 - 400 K/mcL LAB HEMETOLOGY METHOD 07/23/2024 8:49 AM [facility] MPV 11.5(H) 7.0 - 11.0 FL LAB HEMETOLOGY METHOD 07/23/2024 8:49 AM [facility] NRBC 0.0 <1.0 % LAB HEMETOLOGY METHOD 07/23/2024 8:49 AM [facility] NRBC Absolute 0.00 <0.10 K/mcL LAB HEMETOLOGY METHOD 07/23/2024 8:49 AM [facility] Neutrophils Relative 55.9 % LAB HEMETOLOGY METHOD 07/23/2024 8:49 AM [facility] Lymphocytes Relative 32.3 % LAB HEMETOLOGY METHOD 07/23/2024 8:49 AM [facility] Monocytes Relative 11.0 % LAB HEMETOLOGY METHOD 07/23/2024 8:49 AM [facility] Eosinophils Relative 0.4 % LAB HEMETOLOGY METHOD 07/23/2024 8:49 AM [facility] Basophils Relative 0.2 % LAB HEMETOLOGY METHOD 07/23/2024 8:49 AM [facility] Immature Granulocytes Relative 0.2 % LAB HEMETOLOGY METHOD 07/23/2024 8:49 AM [facility] Neutrophils Absolute 2.95 1.50 - 7.00 K/mcL LAB HEMETOLOGY METHOD 07/23/2024 8:49 AM EDT [facility] Lymphocytes Absolute 1.70 1.00 - 5.00 K/mcL LAB HEMETOLOGY METHOD 07/23/2024 8:49 AM EDT [facility] Monocytes Absolute 0.58 0.20 - 1.00 K/mcL LAB HEMETOLOGY METHOD 07/23/2024 8:49 AM EDT [facility] Eosinophils Absolute 0.02 0.00 - 0.50 [facility] LAB HEMETOLOGY METHOD 07/23/2024 8:49 AM EDT [facility] Basophils Absolute 0.01 0.00 - 0.20 [facility] LAB HEMETOLOGY METHOD 07/23/2024 8:49 AM EDT [facility] Immature Granulocytes Absolute 0.01 0.00 - 0.03 [facility] LAB HEMETOLOGY METHOD 07/23/2024 8:49 AM EDT [facility] Blood Venous blood specimen / Unknown Venipuncture / Unknown 07/23/2024 8:30 AM EDT 07/23/2024 8:38 AM EDT us Matthieu Berrios MD LAB BLOOD ORDERABLES Final Resul t [facility] [address] [place] [address], * (ABNORMAL) Creatinine (07/23/2024 8:30 AM EDT) Only the most recent of2 resultswithin the time period is included. Creatinine 9.49(H) 0.70 - 1.30 mg/dL LAB CHEMISTRY METHOD 07/23/2024 9:19 AM EDT [facility] eGFR 5(L) >=60 mL/min/1. 73m2 LAB CHEMISTRY METHOD 07/23/2024 9:19 AM EDT [facility] Comment:Calculation based on the??Chronic Kidney Disease Epidemiology Collaboration (CKD-EPI) equation refit??without adjustment for race. Blood Venous blood specimen / Unknown Venipuncture / Unknown 07/23/2024 8:30 AM EDT 07/23/2024 8:37 AM EDT us Matthieu Berrios MD LAB BLOOD ORDERABLES Final Resul t Performing Organization Address City/[facility]/ZIP Co de Phone Number [facility] [address] [place] [address], [place] [phone] * (ABNORMAL) BUN (07/23/2024 8:30 AM EDT) Only the most recent of2 resultswithin the time period is included. BUN 98(H) 5 - 25 mg/dL LAB CHEMISTRY METHOD 07/23/2024 9:19 AM EDT [facility] Blood Venous blood specimen / Unknown Venipuncture / Unknown 07/23/2024 8:30 AM EDT 07/23/2024 8:37 AM EDT us Matthieu Berrios MD LAB BLOOD ORDERABLES Final Resul t Performing Organization Address [facility] de Phone Number [facility] [address] [place] [address], [place] [phone] * Phosphorus (07/23/2024 8:30 AM EDT) Phosphorus 3.6 2.5 - 4.5 mg/dL LAB CHEMISTRY METHOD 07/23/2024 9:15 AM EDT [facility] Blood Venous blood specimen / Unknown Venipuncture / Unknown 07/23/2024 8:30 AM EDT 07/23/2024 8:37 AM EDT us Matthieu Berrios MD LAB BLOOD ORDERABLES Final Resul t Performing Organization Address City/[facility]/ZIP Co de Phone Number [facility] [address] [place] [address], [place] [phone] * (ABNORMAL) Parathyroid hormone intact (07/23/2024 8:30 AM EDT) Pathologist [facility] PTH 110.4(H) 18.5 - 88.0 pcg/mL LAB CHEMISTRY METHOD 07/23/2024 9:57 AM EDT [facility] Blood Venous blood specimen / Unknown Venipuncture / Unknown 07/23/2024 8:30 AM EDT 07/23/2024 8:37 AM EDT us Matthieu Berrios MD LAB BLOOD ORDERABLES Final Resul t Performing Organization Address [facility]/ZIP Co de Phone Number [facility] [address] [place] [address], [place] [phone] * Calcium (07/23/2024 8:30 AM EDT) Only the most recent of2 resultswithin the time period is included. [facility] Calcium 8.7 8.5 - 10.5 mg/dL LAB CHEMISTRY METHOD 07/23/2024 9:15 AM EDT [facility] Blood Venous blood specimen / Unknown Venipuncture / Unknown 07/23/2024 8:30 AM EDT 07/23/2024 8:37 AM EDT us Matthieu Berrios MD LAB BLOOD ORDERABLES Final Resul t Performing Organization Address City/[facility]/ZIP Co de Phone Number [facility] [address] [place] [address], [place] [phone] * (ABNORMAL) Electrolyte panel (07/23/2024 8:30 AM EDT) Only the most recent of2 resultswithin the time period is included. Pathologist [facility] Sodium 141 133 - 145 mmol/L LAB CHEMISTRY METHOD 07/23/2024 9:24 AM EDT [facility] Potassium 6.2(HH) 3.5 - 5.5 mmol/L LAB CHEMISTRY METHOD 07/23/2024 9:24 AM EDT [facility] Chloride 112(H) 96 - 110 mmol/L LAB CHEMISTRY METHOD 07/23/2024 9:24 AM EDT [facility] CO2 21 21 - 32 mmol/L LAB CHEMISTRY METHOD 07/23/2024 9:24 AM EDT [facility] Anion Gap 8 3 - 11 LAB CHEMISTRY METHOD 07/23/2024 9:24 AM EDT [facility] Blood Venous blood specimen / Unknown Venipuncture / Unknown 07/23/2024 8:30 AM EDT 07/23/2024 8:37 AM EDT Matthieu Berrios MD LAB BLOOD ORDERABLES Final Resul t [facility] [address] [place] [address], * Hemoglobin A1c (04/24/2023) Hemoglobin A1C 5.2 <=6.5 % Blood Venous blood specimen / Unknown Historical Provider LAB BLOOD ORDERABLES Domitila l Result * Lipid panel (04/24/2023) LDL/HDL Ratio 3 0 - 4 Triglycerides 69 0 - 150 mg/dL Cholesterol 152 0 - 200 mg/dL HDL 50 >=40 mg/dL LDL Cholesterol 89 0 - 100 mg/dL Blood Venous blood specimen / Unknown Historical Provider LAB BLOOD ORDERABLES Domitila l Result from Last 3 Months or Most Recently Relevant to Health Maintenance Insurance [facility] [employer] Member Subscriber Plan / Payer (Ef fective 2023-Present) Name:Maik Stoner Relation to Subscriber:Self Name:Maik Stoner Payer ID:[id number] Group ID:[id number] Type:Not on file Address: [facility] [id number] [place] [address] Care Teams Security Administrator Relationship Specialty Start Date End Date Maynor Potts MD [address] [address] PCP - General Internal Medicine 11/26/20
== END 2024-07-30 10:11 | disposition home or self-care (01) ==
LOC: HO.HKAS 09:40
PROVIDERS: PCP Internal Medicine; Visit Provider Internal Medicine Nephrology
DX: N18.5 Chronic kidney disease, stage 5 (principal); D63.1 Anemia in chronic kidney disease; N25.81 Secondary hyperparathyroidism of renal origin; I12.0 Hypertensive chronic kidney disease with stage 5 chronic kidney disease or end stage renal disease; E87.5 Hyperkalemia
CPT/HCPCS: 99214

== ENCOUNTER 2024-08-27 10:20 | Outpatient (AMB) | payer OTHER, SELFPAY ==
--- NOTE | 2024-08-27 10:29 | HO.NEPHOV_ITS ---
Vital Signs 08/27/24 10:30 Height 5 ft 6 in Weight 132 lb 6 oz BMI 21.4 BP 160/64 H Blood Pressure Location Lt brachial Position Sitting Pulse 68 Pulse Source Pulse Oximeter Pulse Oximetry (%) 97 Oxygen Delivery Method Room Air Intake Visit Reasons: 1mon follow-up w/labs-Conf Property Field Adjuster Required: No Accompanied by: Self / Same As Patient Allergies No Known Allergies Allergy (Verified 08/27/24 10:30) HPI Comments Details: Maik was seen in follow-up of his advanced chronic kidney disease, hypertension and anemia of chronic disease along with secondary hyperparathyroidism of renal origin. He denies any uremic symptoms or hypoglycemias. His weight had been stable. His blood sugar well controlled. He denies any nausea, vomiting, shortness of breath, pedal edema, urinary symptoms, tremors, confusion, chest pain. Otherwise there were no new active complaints at the time of this office visit [facility] Medical History AVF (arteriovenous fistula) Secondary hyperparathyroidism (of renal origin) Anemia in chronic kidney disease (CKD) Hypertension CKD (chronic kidney disease) stage 5, GFR less than 15 ml/min Surgical History History of eye surgery History of cataract surgery Social History Alcohol intake: never Patient Tobacco Use Status: Never used Tobacco Review of Systems Const All systems reviewed & are unremarkable except as noted in HPI and below Physical Exam Vital Signs: Last Vital Signs Pulse 68 08/27/24 10:30 BP 160/64 H 08/27/24 10:30 Pulse Ox 97 08/27/24 10:30 Oxygen Delivery Method Room Air 08/27/24 10:30 BMI result Body Mass Index 21.4 Const General: comfortable and no acute distress Orientation/consciousness: patient oriented x3 HEENT Head: Yes normocephalic Mouth: Normal oral and palatal mucosa present Eyes EOM: EOMs intact bilaterally Neck Neck: Yes supple Resp Auscultation: clear to auscultation bilaterally Cardio Jugular venous distension: no JVD Rate: regular rate GI Palpation (GI): Soft to palpation Auscultation: normal bowel sounds General: Yes no CVA tenderness Back/Spine/Pelvis Back: no CVA tenderness Skin General skin exam: no rashes or lesions noted Neuro General: patient oriented x3 and moves all extremities Extrem General: Yes no pedal edema Office Meds epoetin [id number] 10,000 unit/mL injection solution Performing Provider: Matthieu Berrios MD [facility] Administered by: Matthieu Berrios MD on 08/27/24 11:03 Dose Route Admin Location Dispensed Lot Number Expiration Date FORMERLY NAMED [facility] [employer] 20,000 unit subcut LUE 2 mL [id number] 11/12/25 7527-2789-92 [employer] Results Reviewed Nephrology Results: Hgb 9.0 g/dl (14.0-18.0) L 07/30/24 WBC 4.1 X10*3/uL (4.8-10.8) L 07/30/24 Plt Count 149 X10*3/uL (160-400) L 07/30/24 Sodium 142 mmol/L (135-145) 07/30/24 Potassium 5.3 mmol/L (3.3-5.1) H 07/30/24 Chloride 112 mmol/L (96-108) H 07/30/24 Carbon Dioxide 19 mmol/L (22-29) L 07/30/24 BUN 94 mg/dL (9-16) H 07/30/24 Creatinine 8.80 mg/dL (0.5-1.4) H* 07/30/24 Calcium 8.6 mg/dL (8.4-10.2) 07/30/24 Phosphorus 3.8 mg/dL (2.7-4.5) 07/30/24 PTH Intact 209.0 pg/mL (8.7-77.1) H 07/30/24 Assessment & Plan Assessment & Plan (1) Hyperphosphatemia: Code(s): E83.39 - Other disorders of phosphorus metabolism Category: Medical (2) CKD (chronic kidney disease) stage 5, GFR less than 15 ml/min: Code(s): N18.5 - Chronic kidney disease, stage 5 Category: Medical (3) Hypertension: Code(s): I10 - Essential (primary) hypertension Category: Medical Qualifiers: Hypertension type: primary hypertension Qualified Code(s): I10 - Essential (primary) hypertension (4) Anemia in chronic kidney disease (CKD): Code(s): N18.9 - Chronic kidney disease, unspecified; D63.1 - Anemia in chronic kidney disease Category: Medical Qualifiers: Chronic kidney disease stage: stage 5, not on chronic dialysis Qualified Code(s): N18.5 - Chronic kidney disease, stage 5; D63.1 - Anemia in chronic kidney disease (5) Secondary hyperparathyroidism (of renal origin): Code(s): N25.81 - Secondary hyperparathyroidism of renal origin Category: Medical Plan Maik has 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 He denies u remic symptoms. He has a functioning AV fistula. His blood pressure has been at goal at home. He should continue Kayexalate . He is on sodium bicarbonate . He has declined transplant evaluation in the past. There are no clinical indication for him to be initiated on hemodialysis. He is on ferrous sulfate. His transferrin saturations are appropriate. He is on vitamin-D. I have asked him to continue current dose of calcitriol. I gave him 93532 Units of Procrit today. He should continue Renvela 800 mg tid with meals. All questions answered. Follow-up given Orders: Orders Complete Blood Count Auto Diff 1 Month D63.1 - Anemia in chronic kidney disease, E83.39 - Other disorders of phosphorus metabolism, I10 - Essential (primary) hypertension, N18.5 - Chronic kidney disease, stage 5, N25.81 - Secondary hyperparathyroidism of renal origin Electrolytes 1 Month D63.1 - Anemia in chronic kidney disease, E83.39 - Other disorders of phosphorus metabolism, I10 - Essential (primary) hypertension, N18.5 - Chronic kidney disease, stage 5, N25.81 - Secondary hyperparathyroidism of renal origin Calcium 1 Month D63.1 - Anemia in chronic kidney disease, E83.39 - Other disorders of phosphorus metabolism, I10 - Essential (primary) hypertension, N18.5 - Chronic kidney disease, stage 5, N25.81 - Secondary hyperparathyroidism of renal origin Creatinine 1 Month D63.1 - Anemia in chronic kidney disease, E83.39 - Other disorders of phosphorus metabolism, I10 - Essential (primary) hypertension, N18.5 - Chronic kidney disease, stage 5, N25.81 - Secondary hyperparathyroidism of renal origin AMB Epoetin Injection Practice Supplied Today D63.1 - Anemia in chronic kidney disease, N18.5 - Chronic kidney disease, stage 5 Blood Urea Nitrogen 1 Month D63.1 - Anemia in chronic kidney disease, E83.39 - Other disorders of phosphorus metabolism, I10 - Essential (primary) hypertension, N18.5 - Chronic kidney disease, stage 5, N25.81 - Secondary hyperparathyroidism of renal origin Medications: New epoetin kj-epbx 20,000 units (2 mL) subcut ONCE 2 mL 0RF D63.1 - Anemia in chronic kidney disease, N18.5 - Chronic kidney disease, stage 5 Coding Level of Care Code Est Pt Level 4 (41459) Diagnoses Hyperphosphatemia E83.39 CKD (chronic kidney disease) stage 5, GFR less than 15 ml/min N18.5 Primary hypertension I10 Hypertension type: primary hypertension Anemia in stage 5 chronic kidney disease, not on chronic dialysis N18.5; D63.1 Chronic kidney disease stage: stage 5, not on chronic dialysis Secondary hyperparathyroidism (of renal origin) N25.81
[2024-08-27 10:30] VITALS: BP 160/64; PULSE 68; O2SAT 97; BMI 21.4
--- OUTSIDE RECORDS SUMMARY | 2024-08-27 12:22 | XMS_ITS | Clinical Summary ---
Author Organization [facility] Address [address] [facility] [address] [place] [address] Phone Care Team Providers Care Event Operations Manager Name Role Phone Maynor Potts MD Primary Care Provider [phone] Allergies No known active allergies Medications aspirin [...] to other renal disorder 0 08/27/2020 Immunizations Immunization Administration Dates Next Due Influenza Split High [...] Due Date Last Done Comments Pneumococcal Vaccine: 50+ Ye ars (2 of 2 - PCV) 01/13/2014 01/13/2013 Influenza Vaccine (Season Ended) 2025 02/13/20 17 Pneumococcal Vaccine: Peds ( 0 to 5 Years) and At-Risk Patients (6 to 49 Years) Discontinued 01/13/2013 Hepatitis B Vaccine Aged Out No longe r eligible based on patient's age to complete this topic Insurance [employer] Care Teams Event Operations Manager Relationship Specialty Start Date End Date Maynor Potts MD [address] [id number] PCP - General Internal Medicine 08/27/20
--- OUTSIDE RECORDS SUMMARY | 2024-08-27 12:22 | XMS_ITS | Clinical Summary ---
Author Organization [facility] Address [address] [place] [address] Phone Care Team Providers Care Finish Painter Name Role Phone Maynor Potts MD Primary Care Provider [phone] Allergies No known active allergies Medications aspirin [...] 05/23/2019 Anemia 04/19/2018 Type 2 diabetes mellitus wit h renal manifestations ([facility] V24, [facility] V28) 04/19/2018 Type 2 diabetes mellitus wit h eye manifestations ([facility] V24, [facility] V28) 04/19/2018 Benign localized hyperplasia of prostate with urinary obstruction 12/19/2017 CKD (chronic kidney disease) stage 5, GFR less than 15 ml/min ([facility] V24, [facility] V28) 12/19/2017 Hyperlipidemia 12/19/2017 Hypertension 12/19/2017 Hypothyroidism 12/19/2017 Proteinuria 12/19/2017 Type 2 diabetes mellitus wit h cataract ([facility] V24, [facility] V28) 12/19/2017 AV fistula ([facility] V24) 08/16/2017 Vitamin B12 deficiency 11/09/2016 Cataract 12/25/2014 Overview (02/14/2024): S/p surgery Hyperparathyroidism ([facility] V24) 10/02/2013 Background diabetic retinopathy ([place] [id number], [facility] V28) 03/01/2012 Overview (02/14/2024): S/p laser treatment Immunizations [...] Date Comments Anemia 04/19/2018 DX:Anemia AV fistula ([facility] V24) 08/16/2017 DX:AV f istula ([facility]) Background diabetic retinopa thy ([facility] V24, [facility] V28) 03/01/2012 DX:Background diabetic retin opathy ([facility]); COMMENT: S/p laser treatment Benign localized hyperplasia of prostate with urinary obstruction 12/19/2017 DX:Benign localized hyperpla faustino of prostate with urinary obstruction Cataract 12/25/2014 DX:Cataract; COM MENT: S/p surgery CKD (chronic kidney disease) stage 5, GFR less than 15 ml/min ([facility] V24, [facility] V28) 12/19/2017 DX:CKD (chronic kidney disea se) stage 5, GFR less than 15 ml/min ([facility]) Hyperlipidemia 12/19/2017 DX:Hyperlipidemi a Hyperparathyroidism ([facility] V24) 10/02/2013 DX:Hyperparathyroidism ([facility]) Hypertension 12/19/2017 DX:Hypertension Hypothyroidism 12/19/2017 DX:Hypothyroidis m Proteinuria 12/19/2017 DX:Proteinuria Type 2 diabetes mellitus wit h cataract ([facility] V24, [facility] V28) 12/19/2017 DX:Type 2 diabetes mellitus with cataract ([facility]) Type 2 diabetes mellitus wit h eye manifestations ([facility] V24, [facility] V28) 04/19/2018 DX:Type 2 diabetes mellitus with eye manifestations ([facility]) Type 2 diabetes mellitus wit h renal manifestations ([facility] V24, [facility] V28) 04/19/2018 DX:Type 2 diabetes mellitus with renal manifestations ([facility]) Vitamin B12 deficiency 11/09/2016 DX:Vitami n B12 [...] Upcoming Encounters Date Type Department Care Team (Late st Contact Info) Description 09/23/2024 9:45 AM EDT Office Visit Internal Medicine - [place] [address] [facility] [address] [place] [address] Maynor Potts MD [address] [facility] [address] [place] [address] Health Maintenance Due Date Last Done Comments Diabetes: Annual Foot Exam 1955 Diabetes: Annual Retina Eye Exam 1955 DTaP,Tdap,and Td Vaccines (1 - Tdap) 1965 Zoster Vaccines (1 of 2) 1996 RSV Immunization Adult Patients (1 - 1-dose 75+ series) 2021 Depression Screening 04/23/2022 Falls Risk Assessment 04/23/2022 Hepatitis C Screening 04/23/2022 Medicare Annual Wellness Visit 04/23/2022 Social Influencers of Health Screening 04/23/2022 Diabetes: Blood Sugar Control Test (HGBA1C) 10/24/2023 04/24/2023 COVID-19 Vaccine ( season) 2024 03/31/2023, 03/17/2022, 08/23/2021, Additional history exists Influenza Vaccine (Season Ended) 2025 02/12/2017 Hypertension/CHF/CAD Annual BMP Blood Test 08/19/2025 08/19/2024, 07/23/2024, 06/17/2024, Additional history exists Cholesterol Screening (Lipid Panel) [...] age to complete this topic Meningococcal B Vaccine Aged Out No l onger eligible based on patient's age to complete this topic RSV Immunization Patients Under 20 months Aged Out No longer eligible based on patient's age to complete this topic Varicella Vaccines Aged Out No longer eligible based on patient's age to complete this topic Procedures Procedure Name Priority Date/Time Associated Diagnosis Comments CBC WITH AUTO DIFFERENTIAL Routine 08/19/2024 8:23 AM EDT Chronic kidney disease, stage V (CMS/HCC V24, CMS/HCC V28) Essential hypertension, benign Anemia of chronic renal failure Secondary hyperparathyroidism of renal origin (CMS/HCC V24) CREATININE, SERUM Routine 08/19/2024 8:2 3 AM EDT Chronic kidney disease, stage V (CMS/HCC V24, CMS/HCC V28) Essential hypertension, benign Anemia of chronic renal failure Secondary hyperparathyroidism of renal origin (CMS/HCC V24) CBC AND DIFFERENTIAL Routine 08/19/2024 8:23 AM EDT Chronic kidney disease, stage V (CMS/HCC V24, CMS/HCC V28) Essential hypertension, benign Anemia of chronic renal failure Secondary hyperparathyroidism of renal origin (CMS/HCC V24) ELECTROLYTE PANEL Routine 08/19/2024 8:2 3 AM EDT Chronic kidney disease, stage V (CMS/HCC V24, CMS/HCC V28) Essential hypertension, benign Anemia of chronic renal failure Secondary hyperparathyroidism of renal origin (CMS/HCC V24) BUN Routine 08/19/2024 8:23 AM EDT Chronic kidney disease, stage V (CMS/HCC V24, CMS/HCC V28) Essential hypertension, benign Anemia of chronic renal failure Secondary hyperparathyroidism of renal origin (CMS/HCC V24) CBC WITH AUTO DIFFERENTIAL Routine 07/23/2024 8:30 AM EDT Hypophosphaturia Chronic kidney disease, stage V (CMS/HCC V24, CMS/HCC V28) Essential hypertension, benign Anemia of chronic renal failure Secondary hyperparathyroidism, renal (CMS/HCC V24) PARATHYROID HORMONE INTACT Routine 07/23/2024 8:30 AM EDT Hypophosphaturia Chronic kidney disease, stage V (CMS/HCC V24, CMS/HCC V28) Essential hypertension, benign Anemia of chronic renal failure Secondary hyperparathyroidism, renal (CMS/HCC V24) PHOSPHORUS Routine 07/23/2024 8:30 AM EDT Hypophosphaturia Chronic kidney disease, stage V (CMS/HCC V24, CMS/HCC V28) Essential hypertension, benign Anemia of chronic renal failure Secondary hyperparathyroidism, renal (CMS/HCC V24) CALCIUM Routine 07/23/2024 8:30 AM EDT Hypophosphaturia Chronic kidney disease, stage V (CMS/HCC V24, CMS/HCC V28) Essential hypertension, benign Anemia of chronic renal failure Secondary hyperparathyroidism, renal (CMS/HCC V24) ELECTROLYTE PANEL Routine 07/23/2024 8:3 0 AM EDT Hypophosphaturia Chronic kidney disease, stage V (CMS/HCC V24, CMS/HCC V28) Essential hypertension, benign Anemia of chronic renal failure Secondary hyperparathyroidism, renal (CMS/HCC V24) BUN Routine 07/23/2024 8:30 AM EDT Hypophosphaturia Chronic kidney disease, stage V (CMS/HCC V24, CMS/HCC V28) Essential hypertension, benign Anemia of chronic renal failure Secondary hyperparathyroidism, renal (CMS/HCC V24) CREATININE, SERUM Routine 07/23/2024 8:3 0 AM EDT Hypophosphaturia Chronic kidney disease, stage V (CMS/HCC V24, CMS/HCC V28) Essential hypertension, benign Anemia of chronic renal failure Secondary hyperparathyroidism, renal (CMS/HCC V24) CBC AND DIFFERENTIAL Routine 07/23/2024 8:30 AM EDT Hypophosphaturia Chronic kidney disease, stage V (CMS/HCC V24, CMS/HCC V28) Essential hypertension, benign Anemia of chronic renal failure Secondary hyperparathyroidism, renal (CMS/HCC V24) CBC WITH AUTO DIFFERENTIAL Routine 06/17/2024 8:13 AM EST Chronic kidney disease, stage V (CMS/HCC V24, CMS/HCC V28) Erythropoietin deficiency anemia BUN Routine 06/17/2024 8:13 AM EST Chronic kidney disease, stage V (CMS/HCC V24, CMS/HCC V28) Erythropoietin deficiency anemia ELECTROLYTE PANEL Routine 06/17/2024 8:1 3 AM EST Chronic kidney disease, stage V (CMS/HCC V24, CMS/HCC V28) Erythropoietin deficiency anemia CBC AND DIFFERENTIAL Routine 06/17/2024 8:13 AM EST Chronic kidney disease, stage V (CMS/HCC V24, CMS/HCC V28) Erythropoietin deficiency anemia CALCIUM Routine 06/17/2024 8:13 AM EST Chronic kidney disease, stage V (CMS/HCC V24, CMS/HCC V28) Erythropoietin deficiency anemia CREATININE, SERUM Routine 06/17/2024 8:1 3 AM EST Chronic kidney disease, stage V (CMS/HCC V24, CMS/HCC V28) Erythropoietin deficiency anemia HEMOGLOBIN A1C Routine 04/24/2023 LIPID PANEL Routine 04/24/2023 from Last 3 Months or Most Recently Relevant to Health Maintenance Results * (ABNORMAL) CBC auto differential (08/19/2024 8:23 AM EDT) Only the most recent of3 resultswithin the time period is included. WBC 4.3(L) 4.8 - 10.8 K/mcL LAB HEMETOLOGY METHOD 08/19/2024 8:42 AM EDT [facility] RBC 3.20(L) 4.50 - 5.50 M/mcL LAB HEMETOLOGY METHOD 08/19/2024 8:42 AM EDT [facility] Hemoglobin 9.7(L) 13.5 - 17.5 g/dL LAB HEMETOLOGY METHOD 08/19/2024 8:42 AM EDT [facility] Hematocrit 32.2(L) 42.0 - 54.0 % LAB HEMETOLOGY METHOD 08/19/2024 8:[address] [facility] MCV 101.6(H) 79.0 - 98.0 FL LAB HEMETOLOGY METHOD 08/19/2024 8:[address] [facility] MCH 30.6 27.0 - 32.0 pcg LAB HEMETOLOGY METHOD 08/19/2024 8:[address] [facility] MCHC 30.1(L) 32.0 - 37.0 g/dL LAB HEMETOLOGY METHOD 08/19/2024 8:[address] [facility] RDW 16.0(H) 11.0 - 15.0 % LAB HEMETOLOGY METHOD 08/19/2024 8:[address] [facility] Platelets 144 130 - 400 K/mcL LAB HEMETOLOGY METHOD 08/19/2024 8:[address] [facility] MPV 11.4(H) 7.0 - 11.0 FL LAB HEMETOLOGY METHOD 08/19/2024 8:[address] [facility] NRBC 0.0 <1.0 % LAB HEMETOLOGY METHOD 08/19/2024 8:[address] [facility] NRBC Absolute 0.00 <0.10 K/mcL LAB HEMETOLOGY METHOD 08/19/2024 8:[address] [facility] Neutrophils Relative 53.1 % LAB HEMETOLOGY METHOD 08/19/2024 8:[address] [facility] Lymphocytes Relative 35.9 % LAB HEMETOLOGY METHOD 08/19/2024 8:[address] [facility] Monocytes Relative 10.1 % LAB HEMETOLOGY METHOD 08/19/2024 8:[address] [facility] Eosinophils Relative 0.5 % LAB HEMETOLOGY METHOD 08/19/2024 8:[address] [facility] Basophils Relative 0.2 % LAB HEMETOLOGY METHOD 08/19/2024 8:42 AM EDT [facility] Immature Granulocytes Relative 0.2 % LAB HEMETOLOGY METHOD 08/19/2024 8:42 AM EDT [facility] Neutrophils Absolute 2.30 1.50 - 7.00 K/mcL LAB HEMETOLOGY METHOD 08/19/2024 8:42 AM EDT [facility] Lymphocytes Absolute 1.56 1.00 - 5.00 K/mcL LAB HEMETOLOGY METHOD 08/19/2024 8:42 AM EDT [facility] Monocytes Absolute 0.44 0.20 - 1.00 K/mcL LAB HEMETOLOGY METHOD 08/19/2024 8:42 AM EDT [facility] Eosinophils Absolute 0.02 0.00 - 0.50 K/mcL LAB HEMETOLOGY METHOD 08/19/2024 8:42 AM EDT [facility] Basophils Absolute 0.01 0.00 - 0.20 K/mcL LAB HEMETOLOGY METHOD 08/19/2024 8:42 AM EDT [facility] Immature Granulocytes Absolute 0.01 0.00 - 0.03 K/mcL LAB HEMETOLOGY METHOD 08/19/2024 8:42 AM EDT [facility] Blood Venous blood specimen / Unknown Venipuncture / Unknown 08/19/2024 8:23 AM EDT 08/19/2024 8:31 AM EDT us Matthieu Berrios MD LAB BLOOD ORDERABLES Final Resul t [facility] [address] [place] [address], * (ABNORMAL) Creatinine (08/19/2024 8:23 AM EDT) Only the most recent of3 resultswithin the time period is included. Creatinine 9.01(H) 0.70 - 1.30 mg/dL LAB CHEMISTRY METHOD 08/19/2024 9:05 AM EDT [facility] eGFR 6(L) >=60 mL/min/1. 73m2 LAB CHEMISTRY METHOD 08/19/2024 9:05 AM EDT [facility] Comment:Calculation based on the??Chronic Kidney Disease Epidemiology Collaboration (CKD-EPI) equation refit??without adjustment for race. Blood Venous blood specimen / Unknown Venipuncture / Unknown 08/19/2024 8:23 AM EDT 08/19/2024 8:31 AM EDT us Matthieu Berrios MD LAB BLOOD ORDERABLES Final Resul t Performing Organization Address [facility] de Phone Number [facility] [address] [place] [address], [place] [phone] * (ABNORMAL) BUN (08/19/2024 8:23 AM EDT) Only the most recent of3 resultswithin the time period is included. BUN 80(H) 5 - 25 mg/dL LAB CHEMISTRY METHOD 08/19/2024 9:05 AM EDT [facility] Blood Venous blood specimen / Unknown Venipuncture / Unknown 08/19/2024 8:23 AM EDT 08/19/2024 8:31 AM EDT us Matthieu Berrios MD LAB BLOOD ORDERABLES Final Resul t Performing Organization Address City/[facility]/ZIP Co de Phone Number [facility] [address] [place] [address], [place] [phone] * (ABNORMAL) Electrolyte panel (08/19/2024 8:23 AM EDT) Only the most recent of3 resultswithin the time period is included. Sodium 139 133 - 145 mmol/L LAB CHEMISTRY METHOD 08/19/2024 9:05 AM EDT [facility] Potassium 5.1 3.5 - 5.5 mmol/L LAB CHEMISTRY METHOD 08/19/2024 9:05 AM EDT [facility] Chloride 112(H) 96 - 110 mmol/L LAB CHEMISTRY METHOD 08/19/2024 9:05 AM EDT [facility] CO2 19(L) 21 - 32 mmol/L LAB CHEMISTRY METHOD 08/19/2024 9:05 AM EDT [facility] Anion Gap 8 3 - 11 LAB CHEMISTRY METHOD 08/19/2024 9:05 AM EDT [facility] Blood Venous blood specimen / Unknown Venipuncture / Unknown 08/19/2024 8:23 AM EDT 08/19/2024 8:31 AM EDT us Matthieu Berrios MD LAB BLOOD ORDERABLES Final Resul t Performing Organization Address City/[facility]/ZIP Co de Phone Number [facility] [address] [place] [address], [place] [phone] * Phosphorus (07/23/2024 8:30 AM EDT) Phosphorus 3.6 2.5 - 4.5 mg/dL LAB CHEMISTRY METHOD 07/23/2024 9:15 AM EDT [facility] Blood Venous blood specimen / Unknown Venipuncture / Unknown 07/23/2024 8:30 AM EDT 07/23/2024 8:37 AM EDT us Matthieu Berrios MD LAB BLOOD ORDERABLES Final Resul t [facility] [address] [place] [address], [place] [phone] * (ABNORMAL) Parathyroid hormone intact (07/23/2024 8:30 AM EDT) PTH 110.4(H) 18.5 - 88.0 pcg/mL LAB CHEMISTRY METHOD 07/23/2024 9:57 AM EDT [facility] Blood Venous blood specimen / Unknown Venipuncture / Unknown 07/23/2024 8:30 AM EDT 07/23/2024 8:37 AM EDT Matthieu Berrios MD LAB BLOOD ORDERABLES Final Resul t Performing Organization Address City/[facility]/ZIP Co de Phone Number [facility] [address] [place] [address], [place] [phone] * Calcium (07/23/2024 8:30 AM EDT) Only the most recent of2 resultswithin the time period is included. [facility] Calcium 8.7 8.5 - 10.5 mg/dL LAB CHEMISTRY METHOD 07/23/2024 9:15 AM EDT [facility] Blood Venous blood specimen / Unknown Venipuncture / Unknown 07/23/2024 8:30 AM EDT 07/23/2024 8:37 AM EDT Matthieu Berrios MD LAB BLOOD ORDERABLES Final Resul t Performing Organization Address [facility] Co de Phone Number [facility] [address] [place] [address], [place] [phone] * Hemoglobin A1c (04/24/2023) [facility] Hemoglobin A1C 5.2 <=6.5 % Blood Venous blood specimen / Unknown Historical Provider LAB BLOOD ORDERABLES Domitila l Result * Lipid panel (04/24/2023) [facility] LDL/HDL Ratio 3 0 - 4 Triglycerides [...] ID:[id number] Group ID:[id number] Type:Not on file Address: [facility] [id number] [place] [address] Care Teams Finish Painter Relationship Specialty Start Date End Date Maynor Potts MD [address] [address] PCP - General Internal Medicine 11/26/20
== END 2024-08-27 11:08 | disposition home or self-care (01) ==
LOC: HO.HKAS 10:20
PROVIDERS: PCP Internal Medicine; Visit Provider Internal Medicine Nephrology
DX: E83.39 Other disorders of phosphorus metabolism (principal); N18.5 Chronic kidney disease, stage 5; I12.0 Hypertensive chronic kidney disease with stage 5 chronic kidney disease or end stage renal disease; D63.1 Anemia in chronic kidney disease; N25.81 Secondary hyperparathyroidism of renal origin
CPT/HCPCS: 99214

== ENCOUNTER → 2024-08-27 10:20 | Outpatient (BNVA) | payer OTHER, SELFPAY | PROVIDERS: PCP Internal Medicine; Visit Provider Internal Medicine Nephrology | DX: I12.0 Hypertensive chronic kidney disease with stage 5 chronic kidney disease or end stage renal disease (principal); N18.5 Chronic kidney disease, stage 5; D63.1 Anemia in chronic kidney disease; N25.81 Secondary hyperparathyroidism of renal origin; E83.39 Other disorders of phosphorus metabolism | CPT/HCPCS: 96372; Q5106 ==

== ENCOUNTER 2024-10-01 11:25 | Outpatient (AMB) | payer OTHER, SELFPAY ==
[2024-10-01 11:39] VITALS: BP 134/68; BMI 21.6
--- NOTE | 2024-10-01 11:39 | HO.NEPHOV_ITS ---
Vital Signs 10/01/24 11:39 Height 5 ft 6 in Weight 134 lb BMI 21.6 BP 134/68 Blood Pressure Location Lt brachial Position Sitting Intake Visit Reasons: 1mon retacrit [id number] Steam Oven Operator Required: No Steam Oven Operator Services: Steam Oven Operator Offered & Declined Accompanied by: Self / Same As Patient Allergies No Known Allergies Allergy (Verified 10/01/24 11:41) HPI Comments Details: Maik was seen in follow-up of his advanced chronic kidney disease, hypertension and anemia of chronic disease along with secondary hyperparathyroidism of renal origin. He denies any uremic symptoms or hypoglycemias. His weight had been stable. His blood sugar well controlled. He denies any nausea, vomiting, shortness of breath, pedal edema, urinary symptoms, tremors, confusion, chest pain. Otherwise there were no new active complaints at the time of this office visit [facility] Medical History AVF (arteriovenous fistula) Secondary hyperparathyroidism (of renal origin) Anemia in chronic kidney disease (CKD) Hypertension CKD (chronic kidney disease) stage 5, GFR less than 15 ml/min Surgical History History of eye surgery History of cataract surgery Social History Alcohol intake: never Patient Tobacco Use Status: Never used Tobacco Physical Exam Vital Signs: Last Vital Signs BP 134/68 10/01/24 11:39 BMI result Body Mass Index 21.6 Office Meds epoetin [id number] 10,000 unit/mL injection solution Performing Provider: Matthieu Berrios MD Performing Location: [facility] Administered by: Matthieu Berrios MD on 10/01/24 11:57 Dose Route Admin Location Dispensed Lot Number Expiration Date [facility] Dip Filler 20,000 unit subcut LUE 2 mL [id number] 03/15/26 0530-0798-39 [employer] Results Reviewed Nephrology Results: Hgb 9.0 g/dl (14.0-18.0) L 07/30/24 WBC 4.1 X10*3/uL (4.8-10.8) L 07/30/24 Plt Count 149 X10*3/uL (160-400) L 07/30/24 Sodium 142 mmol/L (135-145) 07/30/24 Potassium 5.3 mmol/L (3.3-5.1) H 07/30/24 Chloride 112 mmol/L (96-108) H 07/30/24 Carbon Dioxide 19 mmol/L (22-29) L 07/30/24 BUN 94 mg/dL (9-16) H 07/30/24 Creatinine 8.80 mg/dL (0.5-1.4) H* 07/30/24 Calcium 8.6 mg/dL (8.4-10.2) 07/30/24 Phosphorus 3.8 mg/dL (2.7-4.5) 07/30/24 PTH Intact 209.0 pg/mL (8.7-77.1) H 07/30/24 Assessment & Plan Assessment & Plan (1) Anemia in chronic kidney disease (CKD): Code(s): N18.9 - Chronic kidney disease, unspecified; D63.1 - Anemia in chronic kidney disease Category: Medical Qualifiers: Chronic kidney disease stage: stage 5, not on chronic dialysis Qualified Code(s): N18.5 - Chronic kidney disease, stage 5; D63.1 - Anemia in chronic kidney disease (2) Hyperkalemia: Code(s): E87.5 - Hyperkalemia Category: Medical (3) Hyperphosphatemia: Code(s): E83.39 - Other disorders of phosphorus metabolism Category: Medical (4) CKD (chronic kidney disease) stage 5, GFR less than 15 ml/min: Code(s): N18.5 - Chronic kidney disease, stage 5 Category: Medical (5) Hypertension: Code(s): I10 - Essential (primary) hypertension Category: Medical Qualifiers: Hypertension type: primary hypertension Qualified Code(s): I10 - Essential (primary) hypertension (6) Secondary hyperparathyroidism (of renal origin): Code(s): N25.81 - Secondary hyperparathyroidism of renal origin Category: Medical Plan Maik has 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 He denies uremic symptoms. He has a functioning AV fistula. His blood pressure has been at goal at home. He should continue Kayexalate . He is on sodium bicarbonate . He has declined transplant evaluation in the past. There are no clinical indication for him to be initiated on hemodialysis. He is on ferrous sulfate. His transferrin saturations are appropriate. He is on vitamin-D. I have asked him to continue current dose of calcitriol. I gave him [id number] Units of Procrit today. He should continue Renvela 800 mg tid with meals. All questions answered. Follow-up given Orders: Orders Phosphorus 6 Weeks D63.1 - Anemia in chronic kidney disease, E83.39 - Other disorders of phosphorus metabolism, E87.5 - Hyperkalemia, I10 - Essential (primary) hypertension, N18.5 - Chronic kidney disease, stage 5, N25.81 - Secondary hyperparathyroidism of renal origin AMB Epoetin Injection Practice Supplied Today D63.1 - Anemia in chronic kidney disease, N18.5 - Chronic kidney disease, stage 5 Complete Blood Count Auto Diff 6 Weeks D63.1 - Anemia in chronic kidney disease, E83.39 - Other disorders of phosphorus metabolism, E87.5 - Hyperkalemia, I10 - Essential (primary) hypertension, N18.5 - Chronic kidney disease, stage 5, N25.81 - Secondary hyperparathyroidism of renal origin Creatinine 6 Weeks D63.1 - Anemia in chronic kidney disease, E83.39 - Other disorders of phosphorus metabolism, E87.5 - Hyperkalemia, I10 - Essential (primary) hypertension, N18.5 - Chronic kidney disease, stage 5, N25.81 - Secondary hyperparathyroidism of renal origin Blood Urea Nitrogen 6 Weeks D63.1 - Anemia in chronic kidney disease, E83.39 - Other disorders of phosphorus metabolism, E87.5 - Hyperkalemia, I10 - Essential (primary) hypertension, N18.5 - Chronic kidney disease, stage 5, N25.81 - Secondary hyperparathyroidism of renal origin Electrolytes 6 Weeks D63.1 - Anemia in chronic kidney disease, E83.39 - Other disorders of phosphorus metabolism, E87.5 - Hyperkalemia, I10 - Essential (primary) hypertension, N18.5 - Chronic kidney disease, stage 5, N25.81 - Secondary hyperparathyroidism of renal origin Calcium 6 Weeks D63.1 - Anemia in chronic kidney disease, E83.39 - Other disorders of phosphorus metabolism, E87.5 - Hyperkalemia, I10 - Essential (primary) hypertension, N18.5 - Chronic kidney disease, stage 5, N25.81 - Secondary hyperparathyroidism of renal origin Parathyroid Hormone Intact 6 Weeks D63.1 - Anemia in chronic kidney disease, E83.39 - Other disorders of phosphorus metabolism, E87.5 - Hyperkalemia, I10 - Essential (primary) hypertension, N18.5 - Chronic kidney disease, stage 5, N25.81 - Secondary hyperparathyroidism of renal origin Coding Level of Care Code Est Pt Level 4 (26060) Diagnoses Anemia in stage 5 chronic kidney disease, not on chronic dialysis N18.5; D63.1 Chronic kidney disease stage: stage 5, not on chronic dialysis Hyperkalemia E87.5 Hyperphosphatemia E83.39 CKD (chronic kidney disease) stage 5, GFR less than 15 ml/min N18.5 Primary hypertension I10 Hypertension type: primary hypertension Secondary hyperparathyroidism (of renal origin) N25.81
--- OUTSIDE RECORDS SUMMARY | 2024-10-01 12:42 | XMS_ITS | Clinical Summary ---
Author Organization [facility] Address [address] [place] [address] Phone Care Team Providers Care Blood Bank Calendar Control Clerk Name Role Phone Maynor Potts MD Primary Care Provider [phone] Allergies No known active allergies Medications aspirin [...] 2 diabetes mellitus wit h renal manifestations ([facility] V24, [facility] V28) 04/19/2018 Type 2 diabetes mellitus wit h eye manifestations ([facility] V24, [facility] V28) 04/19/2018 Benign localized hyperplasia of prostate with urinary obstruction 12/19/2017 CKD (chronic kidney disease) stage 5, GFR less than 15 ml/min ([facility] V24, [facility] V28) 12/19/2017 Hyperlipidemia 12/19/2017 Hypertension 12/19/2017 Hypothyroidism 12/19/2017 Proteinuria 12/19/2017 Type 2 diabetes mellitus wit h cataract ([facility] V24, [facility] V28) 12/19/2017 AV fistula ([place] [address]) 08/16/2017 Vitamin B12 deficiency 11/09/2016 Cataract 12/25/2014 Overview (02/14/2024): S/p surgery Hyperparathyroidism ([facility] V24) 10/02/2013 Background diabetic retinopathy ([place] [address], [facility] V28) 03/01/2012 Overview (02/14/2024): S/p laser treatment Encounters Date Type Department Care Team Description 09/23/2024 9:45 AM EDT Office Visit Internal Medicine - [address] [address] Maynor Potts MD Primary hypertension (Primary Dx); CKD (chronic kidney disease) stage 5, GFR less than 15 ml/min ([facility] V24, [facility] V28); Pure hypercholesterolemia; Acquired hypothyroidism from Last 3 Months Immunizations Name Administration Dates Next Due Pneumococcal [...] Date Comments Anemia 04/19/2018 DX:Anemia AV fistula ([facility] V24) 08/16/2017 DX:AV f istula ([facility]) Background diabetic retinopa thy ([facility] V24, [facility] V28) 03/01/2012 DX:Background diabetic retin opathy (HCC); COMMENT: S/p laser treatment Benign localized hyperplasia of prostate with urinary obstruction 12/19/2017 DX:Benign localized hyperpla faustino of prostate with urinary obstruction Cataract 12/25/2014 DX:Cataract; COM MENT: S/p surgery CKD (chronic kidney disease) stage 5, GFR less than 15 ml/min ([facility] V24, [facility] V28) 12/19/2017 DX:CKD (chronic kidney disea se) stage 5, GFR less than 15 ml/min ([facility]) Hyperlipidemia 12/19/2017 DX:Hyperlipidemi a Hyperparathyroidism ([facility] V24) 10/02/2013 DX:Hyperparathyroidism ([facility]) Hypertension 12/19/2017 DX:Hypertension Hypothyroidism 12/19/2017 DX:Hypothyroidis m Proteinuria 12/19/2017 DX:Proteinuria Type 2 diabetes mellitus wit h cataract ([facility] V24, [facility] V28) 12/19/2017 DX:Type 2 diabetes mellitus with cataract (HCC) Type 2 diabetes mellitus wit h eye manifestations ([facility] V24, [facility] V28) 04/19/2018 DX:Type 2 diabetes mellitus with eye manifestations (HCC) Type 2 diabetes mellitus wit h renal manifestations ([facility] V24, [facility] V28) 04/19/2018 DX:Type 2 diabetes mellitus with [...] Sign Reading Time Taken Comments Blood Pressure 128/80 09/23/2024 9:49 AM EDT Pulse 65 09/23/2024 9:49 AM EDT Temperature 35.8 ??C (96.4 ??F) 09/23/2024 9:49 AM ED T Respiratory Rate - - Oxygen Saturation 98% 09/23/2024 9:49 AM EDT Inhaled Oxygen Concentration - - Weight 56.7 kg (125 lb) 09/23/2024 9:49 AM EDT Height - - Body Mass Index - - Plan of Treatment Upcoming Encounters Date Type Department Care Team (Late st Contact Info) Description 03/31/2025 9:45 AM EST Office Visit Internal Medicine - [place] [address] [facility] [address] [place] [id number] Maynor Potts MD [address] [facility] [address] [place] [address] Health Maintenance Due Date Last Done Comments [...] 2025 02/12/2017 Hypertension/CHF/CAD Annual BMP Blood Test 09/23/2025 09/23/2024, 08/19/2024, 07/23/2024, Additional history exists Cholesterol Screening (Lipid Panel) [...] Diagnosis Comments CBC WITH AUTO DIFFERENTIAL Routine 09/23/2024 10:26 AM EDT Secondary hyperparathyroidism of renal origin (CMS/HCC V24) Chronic kidney disease, stage V (CMS/HCC V24, CMS/HCC V28) Anemia of chronic renal failure Essential hypertension, benign Hypophosphaturia BUN Routine 09/23/2024 10:26 AM EDT Secondary hyperparathyroidism of renal origin (CMS/HCC V24) Chronic kidney disease, stage V (CMS/HCC V24, CMS/HCC V28) Anemia of chronic renal failure Essential hypertension, benign Hypophosphaturia CREATININE, SERUM Routine 09/23/2024 10: 26 AM EDT Secondary hyperparathyroidism of renal origin (CMS/HCC V24) Chronic kidney disease, stage V (CMS/HCC V24, CMS/HCC V28) Anemia of chronic renal failure Essential hypertension, benign Hypophosphaturia CALCIUM Routine 09/23/2024 10:26 AM EDT Secondary hyperparathyroidism of renal origin (CMS/HCC V24) Chronic kidney disease, stage V (CMS/HCC V24, CMS/HCC V28) Anemia of chronic renal failure Essential hypertension, benign Hypophosphaturia ELECTROLYTE PANEL Routine 09/23/2024 10: 26 AM EDT Secondary hyperparathyroidism of renal origin (CMS/HCC V24) Chronic kidney disease, stage V (CMS/HCC V24, CMS/HCC V28) Anemia of chronic renal failure Essential hypertension, benign Hypophosphaturia CBC AND DIFFERENTIAL Routine 09/23/2024 10:26 AM EDT Secondary hyperparathyroidism of renal origin (CMS/HCC V24) Chronic kidney disease, stage V (CMS/HCC V24, CMS/HCC V28) Anemia of chronic renal failure Essential hypertension, benign Hypophosphaturia CBC WITH AUTO DIFFERENTIAL Routine 08/19/2024 8:23 [...] renal failure Secondary hyperparathyroidism, renal (CMS/HCC V24) HEMOGLOBIN A1C Routine 04/24/2023 LIPID PANEL Routine 04/24/2023 from Last 3 Months or Most Recently Relevant to Health Maintenance Results * (ABNORMAL) CBC auto differential (09/23/2024 10:26 AM EDT) Only the most recent of3 resultswithin the time period is included. WBC 4.4(L) 4.8 - 10.8 K/mcL LAB HEMETOLOGY METHOD 09/23/2024 12:43 PM [facility] RBC 3.20(L) 4.50 - 5.50 M/mcL LAB HEMETOLOGY METHOD 09/23/2024 12:43 PM [facility] Hemoglobin 9.8(L) 13.5 - 17.5 g/dL LAB HEMETOLOGY METHOD 09/23/2024 12:43 PM [facility] Hematocrit 32.2(L) 42.0 - 54.0 % LAB HEMETOLOGY METHOD 09/23/2024 12:43 PM [facility] MCV 100.6(H) 79.0 - 98.0 FL LAB HEMETOLOGY METHOD 09/23/2024 12:43 PM [facility] MCH 30.6 27.0 - 32.0 pcg LAB HEMETOLOGY METHOD 09/23/2024 12:43 PM [facility] MCHC 30.4(L) 32.0 - 37.0 g/dL LAB HEMETOLOGY METHOD 09/23/2024 12:43 PM [facility] RDW 14.4 11.0 - 15.0 % LAB HEMETOLOGY METHOD 09/23/2024 12:43 PM [facility] Platelets 162 130 - 400 K/mcL LAB HEMETOLOGY METHOD 09/23/2024 12:43 PM [facility] MPV 11.6(H) 7.0 - 11.0 FL LAB HEMETOLOGY METHOD 09/23/2024 12:43 PM [facility] NRBC 0.0 <1.0 % LAB HEMETOLOGY METHOD 09/23/2024 12:43 PM [facility] NRBC Absolute 0.00 <0.10 K/mcL LAB HEMETOLOGY METHOD 09/23/2024 12:43 PM [facility] Neutrophils Relative 54.6 % LAB HEMETOLOGY METHOD 09/23/2024 12:43 PM [facility] Lymphocytes Relative 33.4 % LAB HEMETOLOGY METHOD 09/23/2024 12:43 PM [facility] Monocytes Relative 11.1 % LAB HEMETOLOGY METHOD 09/23/2024 12:43 PM [facility] Eosinophils Relative 0.5 % LAB HEMETOLOGY METHOD 09/23/2024 12:43 PM [facility] Basophils Relative 0.2 % LAB HEMETOLOGY METHOD 09/23/2024 12:43 PM [facility] Immature Granulocytes Relative 0.2 % LAB HEMETOLOGY METHOD 09/23/2024 12:43 PM [facility] Neutrophils Absolute 2.42 1.50 - 7.00 K/mcL LAB HEMETOLOGY METHOD 09/23/2024 12:43 PM [facility] Lymphocytes Absolute 1.48 1.00 - 5.00 K/mcL LAB HEMETOLOGY METHOD 09/23/2024 12:43 PM [facility] Monocytes Absolute 0.49 0.20 - 1.00 K/mcL LAB HEMETOLOGY METHOD 09/23/2024 12:43 PM [facility] Eosinophils Absolute 0.02 0.00 - 0.50 K/mcL LAB HEMETOLOGY METHOD 09/23/2024 12:43 PM [facility] Basophils Absolute 0.01 0.00 - 0.20 K/mcL LAB HEMETOLOGY METHOD 09/23/2024 12:43 PM EDT [facility] Immature Granulocytes Absolute 0.01 0.00 - 0.03 K/mcL LAB HEMETOLOGY METHOD 09/23/2024 12:43 PM EDT [facility] Blood Venous blood specimen / Unknown Venipuncture / Unknown 09/23/2024 10:26 AM EDT 09/23/2024 11:30 AM EDT Matthieu Berrios MD LAB BLOOD ORDERABLES Final Resul t Performing Organization Address [facility] de Phone Number [facility] [address] [place] [address], [place] [phone] * (ABNORMAL) Creatinine (09/23/2024 10:26 AM EDT) Only the most recent of3 resultswithin the time period is included. Creatinine 8.89(H) 0.70 - 1.30 mg/dL LAB CHEMISTRY METHOD 09/23/2024 1:44 PM EDT [facility] eGFR 6(L) >=60 mL/min/1. 73m2 LAB CHEMISTRY METHOD 09/23/2024 1:44 PM EDT [facility] Comment:Calculation based on the Chronic Kidney Disease Epidemiology Collaboration (CKD-EPI) equation refit without adjustment for race. Blood Venous blood specimen / Unknown Venipuncture / Unknown 09/23/2024 10:26 AM EDT 09/23/2024 11:20 AM EDT us Matthieu Berrios MD LAB BLOOD ORDERABLES Final Resul t Performing Organization Address [facility] Co de Phone Number [facility] [address] [place] [address], [place] [phone] * (ABNORMAL) BUN (09/23/2024 10:26 AM EDT) Only the most recent of3 resultswithin the time period is included. BUN 73(H) 5 - 25 mg/dL LAB CHEMISTRY METHOD 09/23/2024 1:44 PM EDT [facility] Blood Venous blood specimen / Unknown Venipuncture / Unknown 09/23/2024 10:26 AM EDT 09/23/2024 11:20 AM EDT us Matthieu Berrios MD LAB BLOOD ORDERABLES Final Resul t Performing Organization Address City/[facility]/ZIP Co de Phone Number [facility] [address] [place] [address], [place] [phone] * Calcium (09/23/2024 10:26 AM EDT) Only the most recent of2 resultswithin the time period is included. Calcium 8.6 8.5 - 10.5 mg/dL LAB CHEMISTRY METHOD 09/23/2024 1:44 PM EDT [facility] Blood Venous blood specimen / Unknown Venipuncture / Unknown 09/23/2024 10:26 AM EDT 09/23/2024 11:20 AM EDT us Matthieu Berrios MD LAB BLOOD ORDERABLES Final Resul t Performing Organization Address [facility] Co de Phone Number [facility] [address] [place] [address], [place] [phone] * (ABNORMAL) Electrolyte panel (09/23/2024 10:26 AM EDT) Only the most recent of3 resultswithin the time period is included. Sodium 143 133 - 145 mmol/L LAB CHEMISTRY METHOD 09/23/2024 1:44 PM EDT [facility] Potassium 5.3 3.5 - 5.5 mmol/L LAB CHEMISTRY METHOD 09/23/2024 1:44 PM EDT [facility] Comment:Hemolysis present Chloride 116(H) 96 - 110 mmol/L LAB CHEMISTRY METHOD 09/23/2024 1:44 PM EDT [facility] CO2 16(L) 21 - 32 mmol/L LAB CHEMISTRY METHOD 09/23/2024 1:44 PM EDT [facility] Anion Gap 11 3 - 11 LAB CHEMISTRY METHOD 09/23/2024 1:44 PM EDT [facility] Blood Venous blood specimen / Unknown Venipuncture / Unknown 09/23/2024 10:26 AM EDT 09/23/2024 11:20 AM EDT us Matthieu Berrios MD LAB BLOOD ORDERABLES Final Resul t Performing Organization Address City/[facility]/ZIP Co de Phone Number [facility] [address] [place] [address], [place] [phone] * Phosphorus (07/23/2024 8:30 AM EDT) Phosphorus 3.6 2.5 - 4.5 mg/dL LAB CHEMISTRY METHOD 07/23/2024 9:15 AM EDT [facility] Blood Venous blood specimen / Unknown Venipuncture / Unknown 07/23/2024 8:30 AM EDT 07/23/2024 8:37 AM EDT Matthieu Berrios MD LAB BLOOD ORDERABLES Final Resul t [facility] [address] [place] [address], [place] [phone] * (ABNORMAL) Parathyroid hormone intact (07/23/2024 8:30 AM EDT) PTH 110.4(H) 18.5 - 88.0 pcg/mL LAB CHEMISTRY METHOD 07/23/2024 9:57 AM EDT [facility] Blood Venous blood specimen / Unknown Venipuncture / Unknown 07/23/2024 8:30 AM EDT 07/23/2024 8:37 AM EDT Matthieu Berrios MD LAB BLOOD ORDERABLES Final Resul t [facility] [address] [place] [address], [place] [phone] * Hemoglobin A1c (04/24/2023) Hemoglobin A1C 5.2 [...] ID:[id number] Group ID:[id number] Type:Not on file Address: [facility] [id number] [place] [id number] Care Teams Blood Bank Calendar Control Clerk Relationship Specialty Start Date End Date Maynor Potts MD [address] [address] PCP - General Internal Medicine 11/26/20
--- OUTSIDE RECORDS SUMMARY | 2024-10-01 12:42 | XMS_ITS | Clinical Summary ---
Author Organization [facility] Address [address] [facility] [address] [place] [address] Phone Care Team Providers Care Sueding Machine Operator Name Role Phone Maynor Potts MD Primary Care Provider [phone] Allergies No known active allergies Medications aspirin [...] Health Medicare [facility] [facility] Medicare Care Teams Sueding Machine Operator Relationship Specialty Start Date End Date Maynor Potts MD [address] [address] PCP - General Internal Medicine 08/27/20
== END 2024-10-01 12:05 | disposition home or self-care (01) ==
LOC: HO.HKAS 11:25
PROVIDERS: PCP Internal Medicine; Visit Provider Internal Medicine Nephrology
DX: N18.5 Chronic kidney disease, stage 5 (principal); D63.1 Anemia in chronic kidney disease; E87.5 Hyperkalemia; E83.39 Other disorders of phosphorus metabolism; I12.0 Hypertensive chronic kidney disease with stage 5 chronic kidney disease or end stage renal disease; N25.81 Secondary hyperparathyroidism of renal origin
CPT/HCPCS: 99214

== ENCOUNTER → 2024-10-01 11:25 | Outpatient (BNVA) | payer OTHER, SELFPAY | PROVIDERS: PCP Internal Medicine; Visit Provider Internal Medicine Nephrology | DX: I12.0 Hypertensive chronic kidney disease with stage 5 chronic kidney disease or end stage renal disease (principal); N18.5 Chronic kidney disease, stage 5; D63.1 Anemia in chronic kidney disease; E87.5 Hyperkalemia; E83.39 Other disorders of phosphorus metabolism; N25.81 Secondary hyperparathyroidism of renal origin | CPT/HCPCS: 96372; Q5106 ==

== ENCOUNTER 2024-11-05 11:32 | Outpatient (AMB) | payer OTHER, SELFPAY ==
--- NOTE | 2024-11-05 12:24 | HO.NEPHOV ---
Vital Signs 11/05/24 12:25 Height 5 ft 6 in Weight 128 lb 8 oz BMI 20.7 BP 120/60 Blood Pressure Location Lt brachial Position Sitting Pulse 67 Pulse Source Pulse Oximeter Pulse Oximetry (%) 98 Oxygen Delivery Method Room Air Intake Visit Reasons: 6wk follow-up w/labs-Conf Night Assistant Required: No Accompanied by: Self / Same As Patient Allergies No Known Allergies Allergy (Verified 11/05/24 12:31) Do you need a note to return to daycare/school/sports/work: No HPI Comments Details: Maik was seen in follow-up of his advanced chronic kidney disease, hypertension and anemia of chronic disease along with secondary hyperparathyroidism of renal origin. He denies any uremic symptoms or hypoglycemias. His weight had been stable. His blood sugar well controlled. He denies any nausea, vomiting, shortness of breath, pedal edema, urinary symptoms, tremors, confusion, chest pain. Otherwise there were no new active complaints at the time of this office visit [facility] Medical History AVF (arteriovenous fistula) Secondary hyperparathyroidism (of renal origin) Anemia in chronic kidney disease (CKD) Hypertension CKD (chronic kidney disease) stage 5, GFR less than 15 ml/min Surgical History History of eye surgery History of cataract surgery Social History Alcohol intake: never Patient Tobacco Use Status: Never used Tobacco Review of Systems Const All systems reviewed & are unremarkable except as noted in HPI and below Physical Exam Vital Signs: Last Vital Signs Pulse 67 11/05/24 12:25 BP 120/60 11/05/24 12:25 Pulse Ox 98 11/05/24 12:25 Oxygen Delivery Method Room Air 11/05/24 12:25 BMI result Body Mass Index 20.7 Const General: comfortable and no acute distress Orientation/consciousness: patient oriented x3 HEENT Head: Yes normocephalic Mouth: Normal oral and palatal mucosa present Eyes EOM: EOMs intact bilaterally Neck Neck: Yes supple Resp Auscultation: clear to auscultation bilaterally Cardio Jugular venous distension: no JVD Rate: regular rate GI Palpation (GI): Soft to palpation Auscultation: normal bowel sounds General: Yes no CVA tenderness Back/Spine/Pelvis Back: no CVA tenderness Skin General skin exam: no rashes or lesions noted Neuro General: patient oriented x3 and moves all extremities Extrem General: Yes no pedal edema Office Meds epoetin [id number] 10,000 unit/mL injection solution Performing Provider: Matthieu Berrios MD Performing Location: [facility] Administered by: Matthieu Berrios MD on 11/05/24 12:41 Dose Route Admin Location Dispensed Lot Number Expiration Date [facility] Phlebotomist Supervisor/Instructor 20,000 unit subcut LUE 2 mL [id number] 06/15/26 4894-2232-95 [employer] Total Dispensed Waste 2 mL 0 % Results Reviewed Nephrology Results: Hgb, (14.0-18.0) 9.0 g/dl L 07/30/24 WBC, (4.8-10.8) 4.1 X10*3/uL L 07/30/24 Plt Count, (160-400) 149 X10*3/uL L 07/30/24 Sodium, (135-145) 142 mmol/L 07/30/24 Potassium, (3.3-5.1) 5.3 mmol/L H 07/30/24 Chloride, (96-108) 112 mmol/L H 25 Carbon Dioxide, (22-29) 19 mmol/L L 25 BUN, (9-16) 94 mg/dL H 07/30/24 Creatinine, (0.5-1.4) 8.80 mg/dL H* 07/30/24 Calcium, (8.4-10.2) 8.6 mg/dL 07/30/24 Phosphorus, (2.7-4.5) 3.8 mg/dL 07/30/24 PTH Intact, (8.7-77.1) 209.0 pg/mL H 07/30/24 Assessment & Plan Assessment & Plan (1) Hypertension: Code(s): I10 - Essential (primary) hypertension Category: Medical Qualifiers: Hypertension type: primary hypertension Qualified Code(s): I10 - Essential (primary) hypertension (2) Secondary hyperparathyroidism (of renal origin): Code(s): N25.81 - Secondary hyperparathyroidism of renal origin Category: Medical (3) CKD (chronic kidney disease) stage 5, GFR less than 15 ml/min: Code(s): N18.5 - Chronic kidney disease, stage 5 Category: Medical (4) Hyperphosphatemia: Code(s): E83.39 - Other disorders of phosphorus metabolism Category: Medical (5) Hyperkalemia: Code(s): E87.5 - Hyperkalemia Category: Medical (6) Anemia in chronic kidney disease (CKD): Code(s): N18.9 - Chronic kidney disease, unspecified; D63.1 - Anemia in chronic kidney disease Category: Medical Qualifiers: Chronic kidney disease stage: stage 5, not on chronic dialysis Qualified Code(s): N18.5 - Chronic kidney disease, stage 5; D63.1 - Anemia in chronic kidney disease Plan Maik has 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 He denies uremic symptoms. He has a functioning AV fistula. His blood pressure has been at goal at home. He should continue Kayexalate . He is on sodium bicarbonate . He has declined transplant evaluation in the past. There are no clinical indication for him to be initiated on hemodialysis. He is on ferrous sulfate. His transferrin saturations are appropriate. He is on vitamin-D. I have asked him to continue current dose of calcitriol. I gave him [id number] Units of Procrit today. He should continue Renvela 800 mg tid with meals. All questions answered. Follow-up given Orders: Orders Electrolytes 1 Month D63.1 - Anemia in chronic kidney disease, E83.39 - Other disorders of phosphorus metabolism, E87.5 - Hyperkalemia, I10 - Essential (primary) hypertension, N18.5 - Chronic kidney disease, stage 5, N25.81 - Secondary hyperparathyroidism of renal origin Blood Urea Nitrogen 1 Month D63.1 - Anemia in chronic kidney disease, E83.39 - Other disorders of phosphorus metabolism, E87.5 - Hyperkalemia, I10 - Essential (primary) hypertension, N18.5 - Chronic kidney disease, stage 5, N25.81 - Secondary hyperparathyroidism of renal origin Creatinine 1 Month D63.1 - Anemia in chronic kidney disease, E83.39 - Other disorders of phosphorus metabolism, E87.5 - Hyperkalemia, I10 - Essential (primary) hypertension, N18.5 - Chronic kidney disease, stage 5, N25.81 - Secondary hyperparathyroidism of renal origin AMB Epoetin Injection Practice Supplied Today D63.1 - Anemia in chronic kidney disease, N18.5 - Chronic kidney disease, stage 5 Complete Blood Count Auto Diff 1 Month D63.1 - Anemia in chronic kidney disease, E83.39 - Other disorders of phosphorus metabolism, E87.5 - Hyperkalemia, I10 - Essential (primary) hypertension, N18.5 - Chronic kidney disease, stage 5, N25.81 - Secondary hyperparathyroidism of renal origin Calcium 1 Month D63.1 - Anemia in chronic kidney disease, E83.39 - Other disorders of phosphorus metabolism, E87.5 - Hyperkalemia, I10 - Essential (primary) hypertension, N18.5 - Chronic kidney disease, stage 5, N25.81 - Secondary hyperparathyroidism of renal origin Coding Level of Care Code Est Pt Level 4 (86782) Diagnoses Primary hypertension I10 Hypertension type: primary hypertension Secondary hyperparathyroidism (of renal origin) N25.81 CKD (chronic kidney disease) stage 5, GFR less than 15 ml/min N18.5 Hyperphosphatemia E83.39 Hyperkalemia E87.5 Anemia in stage 5 chronic kidney disease, not on chronic dialysis N18.5; D63.1 Chronic kidney disease stage: stage 5, not on chronic dialysis
[2024-11-05 12:25] VITALS: BP 120/60; PULSE 67; O2SAT 98; BMI 20.7
--- OUTSIDE RECORDS SUMMARY | 2024-11-05 13:14 | XMS_ITS | Clinical Summary ---
Author Organization [facility] Address [address] [place] [address] Phone Care Team Providers Care [employer] Professor Name Role Phone Manyor Potts MD Primary Care Provider [phone] Allergies No known active allergies Medications aspirin [...] 2 diabetes mellitus wit h renal manifestations ([facility]24, [facility] V28) 04/19/2018 Type 2 diabetes mellitus wit h eye manifestations ([facility] V24, [facility] V28) 04/19/2018 Benign localized hyperplasia of prostate with urinary obstruction 12/19/2017 CKD (chronic kidney disease) stage 5, GFR less than 15 ml/min ([facility] V24, [facility] V28) 12/19/2017 Hyperlipidemia 12/19/2017 Hypertension 12/19/2017 Hypothyroidism 12/19/2017 Proteinuria 12/19/2017 Type 2 diabetes mellitus wit h cataract ([facility] V24, [facility] V28) 12/19/2017 AV fistula ([place] [id number]) 08/16/2017 Vitamin B12 deficiency 11/09/2016 Cataract 12/25/2014 Overview (02/14/2024): S/p surgery Hyperparathyroidism ([facility] V24) 10/02/2013 Background diabetic retinopathy ([place] [id number], [facility] V28) 03/01/2012 Overview (02/14/2024): S/p laser treatment Encounters Date Type Department Care Team Description 09/23/2024 9:45 AM EDT Office Visit Internal Medicine - [address] [address] Maynor Potts MD Primary hypertension (Primary Dx); CKD (chronic kidney disease) stage 5, GFR less than 15 ml/min ([facility] V24, [facility] V28); Pure hypercholesterolemia; Acquired hypothyroidism from Last [...] Date Comments Anemia 04/19/2018 DX:Anemia AV fistula ([facility] V24) 08/16/2017 DX:AV f istula ([facility]) Background diabetic retinopa thy ([facility] V24, [facility] V28) 03/01/2012 DX:Background diabetic retin opathy (HCC); COMMENT: S/p laser treatment Benign localized hyperplasia of prostate with urinary obstruction 12/19/2017 DX:Benign localized hyperpla faustino of prostate with urinary obstruction Cataract 12/25/2014 DX:Cataract; COM MENT: S/p surgery CKD (chronic kidney disease) stage 5, GFR less than 15 ml/min ([facility] V24, [facility] V28) 12/19/2017 DX:CKD (chronic kidney disea se) stage 5, GFR less than 15 ml/min ([facility]) Hyperlipidemia 12/19/2017 DX:Hyperlipidemi a Hyperparathyroidism ([facility] V24) 10/02/2013 DX:Hyperparathyroidism ([facility]) Hypertension 12/19/2017 DX:Hypertension Hypothyroidism 12/19/2017 DX:Hypothyroidis m Proteinuria 12/19/2017 DX:Proteinuria Type 2 diabetes mellitus wit h cataract ([facility] V24, [facility] V28) 12/19/2017 DX:Type 2 diabetes mellitus with cataract (HCC) Type 2 diabetes mellitus wit h eye manifestations ([facility] V24, [facility] V28) 04/19/2018 DX:Type 2 diabetes mellitus with eye manifestations (HCC) Type 2 diabetes mellitus wit h renal manifestations ([facility] V24, [facility] V28) 04/19/2018 DX:Type 2 diabetes mellitus [...] 65 09/23/2024 9:49 AM EDT Temperature 35.8 C (96.4 F) 09/23/2024 9:49 AM EDT Respiratory Rate - - Oxygen Saturation 98% 09/23/2024 9:49 AM EDT Inhaled Oxygen Concentration - - Weight 56.7 kg (125 lb) 09/23/2024 9:49 AM EDT Height - - Body Mass Index - - Plan of Treatment Upcoming Encounters Date Type Department Care Team (Late st Contact Info) Description 03/31/2025 9:45 AM EST Office Visit Internal Medicine - [place] [address] [facility] [address] [place] [id number] Maynor Potts MD [address] [facility] [address] [place] [address] Health Maintenance Due Date Last Done Comments Diabetes: Annual Foot Exam 1955 Diabetes: Annual Retina Eye Exam 1955 DTaP,Tdap,and Td Vaccines (1 - Tdap) 1965 Zoster Vaccines (1 of 2) 1965 RSV Immunization Adult Patients (1 - 1-dose 75+ series) 2021 Depression Screening 04/23/2022 Falls Risk Assessment 04/23/2022 Hepatitis C Screening 04/23/2022 Medicare Annual Wellness Visit 04/23/2022 Social Influencers of Health Screening 04/23/2022 Diabetes: Blood Sugar Control Test (HGBA1C) 10/24/2023 04/24/2023 COVID-19 Vaccine ( season) 2024 03/31/2023, 03/17/2022, 08/23/2021, Additional history exists Influenza Vaccine (Season Ended) 2025 02/12/2017 Hypertension/CHF/CAD Annual BMP Blood Test 10/29/2025 10/29/2024, 09/23/2024, 08/19/2024, Additional history exists Cholesterol Screening (Lipid Panel) [...] Diagnosis Comments CBC WITH AUTO DIFFERENTIAL Routine 10/29/2024 8:42 AM EDT Chronic kidney disease, stage V (CMS/HCC V24, CMS/HCC V28) Anemia of chronic renal failure FERRITIN Routine 10/29/2024 8:42 AM EDT Chronic kidney disease, stage V (CMS/HCC V24, CMS/HCC V28) Anemia of chronic renal failure PARATHYROID HORMONE INTACT Routine 10/29/2024 8:42 AM EDT Chronic kidney disease, stage V (CMS/HCC V24, CMS/HCC V28) Anemia of chronic renal failure CALCIUM Routine 10/29/2024 8:42 AM EDT Chronic kidney disease, stage V (CMS/HCC V24, CMS/HCC V28) Anemia of chronic renal failure ELECTROLYTE PANEL Routine 10/29/2024 8:4 2 AM EDT Chronic kidney disease, stage V (CMS/HCC V24, CMS/HCC V28) Anemia of chronic renal failure BUN Routine 10/29/2024 8:42 AM EDT Chronic kidney disease, stage V (CMS/HCC V24, CMS/HCC V28) Anemia of chronic renal failure CREATININE, SERUM Routine 10/29/2024 8:4 2 AM EDT Chronic kidney disease, stage V (CMS/HCC V24, CMS/HCC V28) Anemia of chronic renal failure CBC AND DIFFERENTIAL Routine 10/29/2024 8:42 AM EDT Chronic kidney disease, stage V (CMS/HCC V24, CMS/HCC V28) Anemia of chronic renal failure TRANSFERRIN Routine 10/29/2024 8:42 AM EDT Chronic kidney disease, stage V (CMS/HCC V24, CMS/HCC V28) Anemia of chronic renal failure IRON AND TIBC Routine 10/29/2024 8:42 AM EDT Chronic kidney disease, stage V (CMS/HCC V24, CMS/HCC V28) Anemia of chronic renal failure PHOSPHORUS Routine 10/29/2024 8:42 AM EDT Chronic kidney disease, stage V (CMS/HCC V24, CMS/HCC V28) Anemia of chronic renal failure CBC WITH AUTO DIFFERENTIAL Routine 09/23/2024 10:26 [...] Secondary hyperparathyroidism of renal origin (CMS/HCC V24) HEMOGLOBIN A1C Routine 04/24/2023 LIPID PANEL Routine 04/24/2023 from Last 3 Months or Most Recently Relevant to Health Maintenance Results * (ABNORMAL) CBC auto differential (10/29/2024 8:42 AM EDT) Only the most recent of3 resultswithin the time period is included. [facility] WBC 5.0 4.8 - 10.8 K/mcL LAB HEMETOLOGY METHOD 10/29/2024 9:54 AM [facility] RBC 3.30(L) 4.50 - 5.50 M/mcL LAB HEMETOLOGY METHOD 10/29/2024 9:54 AM [facility] Hemoglobin 9.7(L) 13.5 - 17.5 g/dL LAB HEMETOLOGY METHOD 10/29/2024 9:54 AM [facility] Hematocrit 32.1(L) 42.0 - 54.0 % LAB HEMETOLOGY METHOD 10/29/2024 9:54 AM [facility] MCV 98.8(H) 79.0 - 98.0 FL LAB HEMETOLOGY METHOD 10/29/2024 9:54 AM [facility] MCH 29.8 27.0 - 32.0 pcg LAB HEMETOLOGY METHOD 10/29/2024 9:54 AM [facility] MCHC 30.2(L) 32.0 - 37.0 g/dL LAB HEMETOLOGY METHOD 10/29/2024 9:54 AM [facility] RDW 14.6 11.0 - 15.0 % LAB HEMETOLOGY METHOD 10/29/2024 9:54 AM [facility] Platelets 169 130 - 400 K/mcL LAB HEMETOLOGY METHOD 10/29/2024 9:54 AM [facility] MPV 11.2(H) 7.0 - 11.0 FL LAB HEMETOLOGY METHOD 10/29/2024 9:54 AM [facility] NRBC 0.0 <1.0 % LAB HEMETOLOGY METHOD 10/29/2024 9:54 AM EDT [facility] NRBC Absolute 0.00 <0.10 K/mcL LAB HEM[facility]OLOG[facility]24 [facility] Neutrophils Relative 45.1 % LAB HEMETOLOGY METHOD 10/29/2024 9:54 AM EDT [facility] Lymphocytes Relative 44.5 % LAB HEMETOLOGY METHOD 10/29/2024 9:54 AM T [facility] Monocytes Relative 9.4 % LAB HEMETOLOGY METHOD 10/29/2024 9:54 AM [facility] Eosinophils Relative 0.4 % LAB HEMETOLOGY METHOD 10/29/2024 9:54 AM [facility] Basophils Relative 0.2 % LAB HEMETOLOGY METHOD 10/29/2024 9:54 AM [facility] Immature Granulocytes Relative 0.4 % LAB HEMETOLOGY METHOD 10/29/2024 9:54 AM [facility] Neutrophils Absolute 2.26 1.50 - 7.00 K/mcL LAB HEMETOLOGY METHOD 10/29/2024 9:54 AM [facility] Lymphocytes Absolute 2.23 1.00 - 5.00 K/mcL LAB HEMETOLOGY METHOD 10/29/2024 9:54 AM EDT [facility] Monocytes Absolute 0.47 0.20 - 1.00 K/mcL LAB HEMETOLOGY METHOD 10/29/2024 9:54 AM T [facility] Eosinophils Absolute 0.02 0.00 - 0.50 K/mcL LAB HEMETOLOGY METHOD 10/29/2024 9:54 AM [facility] Basophils Absolute 0.01 0.00 - 0.20 K/mcL LAB HEMETOLOGY METHOD 10/29/2024 9:54 AM EDT [facility] Immature Granulocytes Absolute 0.02 0.00 - 0.03 K/mcL LAB HEMETOLOGY METHOD 10/29/2024 9:54 AM EDT [facility] Blood Venous blood specimen / Unknown Venipuncture / Unknown 10/29/2024 8:42 AM EDT 10/29/2024 9:42 AM EDT Matthieu Berrios MD LAB BLOOD ORDERABLES Final Resul t Performing Organization Address [facility]/ZIP Co de Phone Number [facility] [address] [place] [address], * (ABNORMAL) Iron and TIBC (10/29/2024 8:42 AM EDT) Iron 69 50 - 160 mcg/dL LAB CHEMISTRY METHOD 10/29/2024 10:33 AM EDT [facility] TIBC 226(L) 250 - 450 mcg/dL LAB CHEMISTRY METHOD 10/29/2024 10:33 AM EDT [facility] Iron Saturation 31 20 - 50 % LAB CHEMISTRY METHOD 10/29/2024 10:33 AM EDT [facility] Blood Venous blood specimen / Unknown Venipuncture / Unknown 10/29/2024 8:42 AM EDT 10/29/2024 9:42 AM EDT Matthieu Berrios MD LAB BLOOD ORDERABLES Final Resul t Performing Organization Address [facility]/ZIP Co de Phone Number [facility] [address] [place] [address], [place] [phone] * (ABNORMAL) Creatinine (10/29/2024 8:42 AM EDT) Only the most recent of3 resultswithin the time period is included. Creatinine 9.82(H) 0.70 - 1.30 mg/dL LAB CHEMISTRY METHOD 10/29/2024 10:36 AM EDT [facility] eGFR 5(L) >=60 mL/min/1. 73m2 LAB CHEMISTRY METHOD 10/29/2024 10:36 AM EDT [facility] Comment:Calculation based on the Chronic Kidney Disease Epidemiology Collaboration (CKD-EPI) equation refit without adjustment for race. Blood Venous blood specimen / Unknown Venipuncture / Unknown 10/29/2024 8:42 AM EDT 10/29/2024 9:42 AM EDT Matthieu Berrios MD LAB BLOOD ORDERABLES Final Resul t Performing Organization Address [facility]/ZIP Co de Phone Number [facility] [address] [place] [address], [place] [phone] * (ABNORMAL) BUN (10/29/2024 8:42 AM EDT) Only the most recent of3 resultswithin the time period is included. BUN 112(H) 5 - 25 mg/dL LAB CHEMISTRY METHOD 10/29/2024 10:36 AM EDT [facility] Blood Venous blood specimen / Unknown Venipuncture / Unknown 10/29/2024 8:42 AM EDT 10/29/2024 9:42 AM EDT us Matthieu Berrios MD LAB BLOOD ORDERABLES Final Resul t Performing Organization Address City/[facility]/ZIP Co de Phone Number [facility] [address] [place] [address], [place] [phone] * (ABNORMAL) Transferrin (10/29/2024 8:42 AM EDT) Transferrin 178(L) 200 - 360 mg/dL 10/31/2024 4:23 AM EDT [facility] Comment: Test performed at [facility], [address] , [place] [id number] Brenda Davis MD, PhD - Cigarette Filter Inspector Blood Venous blood specimen / Unknown Venipuncture / Unknown 10/29/2024 8:42 AM EDT 10/29/2024 9:41 AM EDT us Matthieu Berrios MD LAB BLOOD ORDERABLES Final Resul t Performing Organization Address [facility]/ZIP Co de Phone Number [facility] [address] [place] [address] * (ABNORMAL) Phosphorus (10/29/2024 8:42 AM EDT) Phosphorus 5.1(H) 2.5 - 4.5 mg/dL LAB CHEMISTRY METHOD 10/29/2024 10:33 AM EDT [facility] Blood Venous blood specimen / Unknown Venipuncture / Unknown 10/29/2024 8:42 AM EDT 10/29/2024 9:42 AM EDT us Matthieu Berrios MD LAB BLOOD ORDERABLES Final Resul t Performing Organization Address [facility] de Phone Number [facility] [address] [place] [address], * (ABNORMAL) Parathyroid hormone intact (10/29/2024 8:42 AM EDT) PTH 151.9(H) 18.5 - 88.0 pcg/mL LAB CHEMISTRY METHOD 10/29/2024 11:23 AM EDT [facility] Blood Venous blood specimen / Unknown Venipuncture / Unknown 10/29/2024 8:42 AM EDT 10/29/2024 9:42 AM EDT us Matthieu Berrios MD LAB BLOOD ORDERABLES Final Resul t Performing Organization Address City/[facility]/ZIP Co de Phone Number [facility] [address] [place] [address], [place] [phone] * Ferritin (10/29/2024 8:42 AM EDT) Ferritin 153 26 - 388 ng/mL LAB CHEMISTRY METHOD 10/29/2024 10:34 AM EDT [facility] Blood Venous blood specimen / Unknown Venipuncture / Unknown 10/29/2024 8:42 AM EDT 10/29/2024 9:42 AM EDT us Matthieu Berrios MD LAB BLOOD ORDERABLES Final Resul t Performing Organization Address City/[facility] Co de Phone Number [facility] [address] [place] [address], [place] [phone] * Calcium (10/29/2024 8:42 AM EDT) Only the most recent of2 resultswithin the time period is included. Calcium 8.5 8.5 - 10.5 mg/dL LAB CHEMISTRY METHOD 10/29/2024 10:33 AM EDT [facility] Blood Venous blood specimen / Unknown Venipuncture / Unknown 10/29/2024 8:42 AM EDT 10/29/2024 9:42 AM EDT us Matthieu Berrios MD LAB BLOOD ORDERABLES Final Resul t Performing Organization Address [facility] de Phone Number [facility] [address] [place] [address], [place] [phone] * (ABNORMAL) Electrolyte panel (10/29/2024 8:42 AM EDT) Only the most recent of3 resultswithin the time period is included. Sodium 140 133 - 145 mmol/L LAB CHEMISTRY METHOD 10/29/2024 10:33 AM EDT [facility] Potassium 5.4 3.5 - 5.5 mmol/L LAB CHEMISTRY METHOD 10/29/2024 10:33 AM EDT [facility] Chloride 112(H) 96 - 110 mmol/L LAB CHEMISTRY METHOD 10/29/2024 10:33 AM EDT [facility] CO2 21 21 - 32 mmol/L LAB CHEMISTRY METHOD 10/29/2024 10:33 AM EDT [facility] Anion Gap 7 3 - 11 LAB CHEMISTRY METHOD 10/29/2024 10:33 AM EDT [facility] Blood Venous blood specimen / Unknown Venipuncture / Unknown 10/29/2024 8:42 AM EDT 10/29/2024 9:42 AM EDT Matthieu Berrios MD LAB BLOOD ORDERABLES Final Resul t [facility] [address] [place] [address], * Hemoglobin A1c (04/24/2023) Hemoglobin A1C 5.2 [...] Subscriber Plan / Payer (Ef fective 2023-Present) Name:BERONICA STONER Relation to Subscriber:Self Name:Beronica Stoner Payer ID:[id number] Group ID:[id number] Type:Not on file Address: [facility] [id number] [place] [address] Care Teams [employer] Professor Relationship Specialty Start Date End Date Maynor Potts MD [address] [address] PCP - General Internal Medicine 11/26/20
== END 2024-11-05 13:29 | disposition home or self-care (01) ==
LOC: HO.HKAS 11:32
PROVIDERS: PCP Internal Medicine; Visit Provider Internal Medicine Nephrology
DX: I12.0 Hypertensive chronic kidney disease with stage 5 chronic kidney disease or end stage renal disease (principal); N25.81 Secondary hyperparathyroidism of renal origin; N18.5 Chronic kidney disease, stage 5; E83.39 Other disorders of phosphorus metabolism; E87.5 Hyperkalemia; D63.1 Anemia in chronic kidney disease
CPT/HCPCS: 99214

== ENCOUNTER → 2024-11-05 11:32 | Outpatient (BNVA) | payer OTHER, SELFPAY | PROVIDERS: PCP Internal Medicine; Visit Provider Internal Medicine Nephrology | DX: N18.5 Chronic kidney disease, stage 5 (principal); D63.1 Anemia in chronic kidney disease | CPT/HCPCS: 96372; Q5106 ==

== ENCOUNTER 2024-12-03 14:05 | Outpatient (AMB) | payer OTHER, SELFPAY ==
--- NOTE | 2024-12-03 14:10 | HO.NEPHOV_ITS ---
Vital Signs 12/03/24 14:12 Height 5 ft 8 in Weight 134 lb BMI 20.4 BP 160/70 H Blood Pressure Location Lt brachial Position Sitting Pulse 71 Pulse Source Pulse Oximeter Pulse Oximetry (%) 99 Oxygen Delivery Method Room Air Intake Visit Reasons: 1m follow up-[facility] Humidifier Attendant Required: No Accompanied by: Self / Same As Patient Allergies No Known Allergies Allergy (Verified 12/03/24 14:12) HPI Comments Details: Maik was seen in follow-up of his advanced chronic kidney disease, hypertension and anemia of chronic disease along with secondary hyperparathyroidism of renal origin. He denies any uremic symptoms or hypoglycemias. His weight had been stable. His blood sugar well controlled. He denies any nausea, vomiting, shortness of breath, pedal edema, urinary symptoms, tremors, confusion, chest pain. Otherwise there were no new active complaints at the time of this office visit [facility] Medical History AVF (arteriovenous fistula) Secondary hyperparathyroidism (of renal origin) Anemia in chronic kidney disease (CKD) Hypertension CKD (chronic kidney disease) stage 5, GFR less than 15 ml/min Surgical History History of eye surgery History of cataract surgery Social History Alcohol intake: never Patient Tobacco Use Status: Never used Tobacco Review of Systems Const All systems reviewed & are unremarkable except as noted in HPI and below Physical Exam Vital Signs: Last Vital Signs Pulse 71 12/03/24 14:12 BP 160/70 H 12/03/24 14:12 Pulse Ox 99 12/03/24 14:12 Oxygen Delivery Method Room Air 12/03/24 14:12 BMI result Body Mass Index 20.4 Const General: comfortable and no acute distress Orientation/consciousness: patient oriented x3 HEENT Head: Yes normocephalic Mouth: Normal oral and palatal mucosa present Eyes EOM: EOMs intact bilaterally Neck Neck: Yes supple Resp Auscultation: clear to auscultation bilaterally Cardio Jugular venous distension: no JVD Rate: regular rate GI Palpation (GI): Soft to palpation Auscultation: normal bowel sounds General: Yes no CVA tenderness Back/Spine/Pelvis Back: no CVA tenderness Skin General skin exam: no rashes or lesions noted Neuro General: patient oriented x3 and moves all extremities Extrem General: Yes no pedal edema Office Meds epoetin [id number] 10,000 unit/mL injection solution Performing Provider: Matthieu Berrios MD Performing Location: [facility] [place] [place] [facility] Administered by: Matthieu Berrios MD on 12/03/24 14:46 Dose Route Admin Location Dispensed Lot Number Expiration Date [facility] Meter [employer] Rem[employer] 20,000 unit subcut LUE 2 mL [id number] 06/15/26 2155-0424-36 [facility] [employer] Total Dispensed Waste 2 mL 0 % Assessment & Plan Assessment & Plan (1) Anemia in chronic kidney disease (CKD): Code(s): N18.9 - Chronic kidney disease, unspecified; D63.1 - Anemia in chronic kidney disease Category: Medical Qualifiers: Chronic kidney disease stage: stage 5, not on chronic dialysis Qualified Code(s): N18.5 - Chronic kidney disease, stage 5; D63.1 - Anemia in chronic kidney disease (2) Secondary hyperparathyroidism (of renal origin): Code(s): N25.81 - Secondary hyperparathyroidism of renal origin Category: Medical (3) CKD (chronic kidney disease) stage 5, GFR less than 15 ml/min: Code(s): N18.5 - Chronic kidney disease, stage 5 Category: Medical (4) Hyperphosphatemia: Code(s): E83.39 - Other disorders of phosphorus metabolism Category: Medical (5) Hyperkalemia: Code(s): E87.5 - Hyperkalemia Category: Medical (6) Hypertension: Code(s): I10 - Essential (primary) hypertension Category: Medical Qualifiers: Hypertension type: primary hypertension Qualified Code(s): I10 - Essential (primary) hypertension Plan Maik has 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 He denies uremic symptoms. He has a functioning AV fistula. His blood pressure has been at goal at home. He should continue Kayexalate . He is on sodium bicarbonate . He has declined transplant evaluation in the past. There are no clinical indication for him to be initiated on hemodialysis. He is on ferrous sulfate. His transferrin saturations are appropriate. He is on vitamin-D. I have asked him to continue current dose of calcitriol. I gave him [id number] Units of Procrit today. He should continue Renvela 800 mg tid with meals. All questions answered. Follow-up given Orders: Orders AMB Epoetin Injection Practice Supplied Today D63.1 - Anemia in chronic kidney disease, N18.5 - Chronic kidney disease, stage 5 Complete Blood Count Auto Diff 4 Weeks D63.1 - Anemia in chronic kidney disease, E83.39 - Other disorders of phosphorus metabolism, E87.5 - Hyperkalemia, I10 - Essential (primary) hypertension, N18.5 - Chronic kidney disease, stage 5, N25.81 - Secondary hyperparathyroidism of renal origin Creatinine 4 Weeks D63.1 - Anemia in chronic kidney disease, E83.39 - Other disorders of phosphorus metabolism, E87.5 - Hyperkalemia, I10 - Essential (primary) hypertension, N18.5 - Chronic kidney disease, stage 5, N25.81 - Secondary hyperparathyroidism of renal origin Electrolytes 4 Weeks D63.1 - Anemia in chronic kidney disease, E83.39 - Other disorders of phosphorus metabolism, E87.5 - Hyperkalemia, I10 - Essential (primary) hypertension, N18.5 - Chronic kidney disease, stage 5, N25.81 - Secondary hyperparathyroidism of renal origin Blood Urea Nitrogen 4 Weeks D63.1 - Anemia in chronic kidney disease, E83.39 - Other disorders of phosphorus metabolism, E87.5 - Hyperkalemia, I10 - Essential (primary) hypertension, N18.5 - Chronic kidney disease, stage 5, N25.81 - Secondary hyperparathyroidism of renal origin Calcium 4 Weeks D63.1 - Anemia in chronic kidney disease, E83.39 - Other disorders of phosphorus metabolism, E87.5 - Hyperkalemia, I10 - Essential (primary) hypertension, N18.5 - Chronic kidney disease, stage 5, N25.81 - Secondary hyperparathyroidism of renal origin Coding Level of Care Code Est Pt Level 4 (70563) Diagnoses Anemia in stage 5 chronic kidney disease, not on chronic dialysis N18.5; D63.1 Chronic kidney disease stage: stage 5, not on chronic dialysis Secondary hyperparathyroidism (of renal origin) N25.81 CKD (chronic kidney disease) stage 5, GFR less than 15 ml/min N18.5 Hyperphosphatemia E83.39 Hyperkalemia E87.5 Primary hypertension I10 Hypertension type: primary hypertension
[2024-12-03 14:12] VITALS: BP 160/70; PULSE 71; O2SAT 99; BMI 20.4
--- OUTSIDE RECORDS SUMMARY | 2024-12-03 15:25 | XMS_ITS | Clinical Summary ---
Author Organization [facility] Address [address] [facility] [address] [place] [address] Phone Care Team Providers Care Geothermal Operating Engineer Name Role Phone Maynor Potts MD Primary Care Provider [phone] Allergies No known active allergies Medications aspirin [...] - PCV) 01/13/2014 01/13/2013 Influenza Vaccine (#1) 2025 02/12/2017 Pneumococcal Vaccine: Peds ( 0 to 5 Years) and At-Risk Patients (6 to 49 Years) Discontinued 01/13/2013 Hepatitis B Vaccine Aged Out No longe r eligible based on patient's age to complete this topic Insurance [facility] Medicare [facility] Medicare Care Teams Geothermal Operating Engineer Relationship Specialty Start Date End Date Maynor Potts MD [address] [address] PCP - General Internal Medicine 08/27/20
--- OUTSIDE RECORDS SUMMARY | 2024-12-03 15:25 | XMS_ITS | Encounter Summary ---
Author Organization [facility] Address [address] [place] [address] Care Team Providers Care Print Shop Stenographer Name Role Phone Maynor Potts MD Primary Care Provider [phone] Encounter Details Date Type Department Care Team ([facility] Contact Info) Description 11/18/2024 Telephone Internal Medicine [facility] [address] [phone] Maynor Potts MD [address] [address] Social History Tobacco Use Types Packs/Day Years [...] on file documented as of this encounter Plan of Treatment Upcoming Encounters Date Type Department Care Team (Late Contact Info) Description 03/31/2025 9:45 AM EST Office Visit Internal Medicine [facility] [address] [phone] Maynor Potts MD [address] [phone] documented as of this encounter Visit Diagnoses Not on filedocumented in this encounter Care Teams Print Shop Stenographer Relationship Specialty Start Date End Date Maynor Potts MD [address] [address] PCP - General Internal Medicine 11/26/20 documented as of this encounter
== END 2024-12-03 14:57 | disposition home or self-care (01) ==
LOC: HO.HKAS 14:06
PROVIDERS: PCP Internal Medicine; Visit Provider Internal Medicine Nephrology
DX: N18.5 Chronic kidney disease, stage 5 (principal); D63.1 Anemia in chronic kidney disease; N25.81 Secondary hyperparathyroidism of renal origin; E83.39 Other disorders of phosphorus metabolism; E87.5 Hyperkalemia; I12.0 Hypertensive chronic kidney disease with stage 5 chronic kidney disease or end stage renal disease
CPT/HCPCS: 99214

== ENCOUNTER → 2024-12-03 14:05 | Outpatient (BNVA) | payer OTHER, SELFPAY | PROVIDERS: PCP Internal Medicine; Visit Provider Internal Medicine Nephrology | DX: N18.5 Chronic kidney disease, stage 5 (principal); D63.1 Anemia in chronic kidney disease | CPT/HCPCS: 96372; Q5106 ==

== ENCOUNTER 2025-01-07 11:38 | Outpatient (AMB) | payer OTHER, SELFPAY ==
--- NOTE | 2025-01-07 12:00 | HO.NEPHOV_ITS ---
Vital Signs 01/07/25 12:02 Height 5 ft 6 in Weight 131 lb 4 oz BMI 21.2 BP 142/60 H Blood Pressure Location Lt brachial Position Sitting Pulse 66 Pulse Source Pulse Oximeter Pulse Oximetry (%) 99 Oxygen Delivery Method Room Air Intake Visit Reasons: 4wk follow up-Conf Acute Care Nursing Assistant Required: No Accompanied by: Self / Same As Patient Allergies No Known Allergies Allergy (Verified 01/07/25 12:01) HPI Comments Details: Maik was seen in follow-up of his advanced chronic kidney disease, hypertension and anemia of chronic disease along with secondary hyperparathyroidism of renal origin. He denies any uremic symptoms or hypoglycemias. His weight had been stable. His blood sugar well controlled. He denies any nausea, vomiting, shortness of breath, pedal edema, urinary symptoms, tremors, confusion, chest pain. Otherwise there were no new active complaints at the time of this office visit [facility] Medical History AVF (arteriovenous fistula) Secondary hyperparathyroidism (of renal origin) Anemia in chronic kidney disease (CKD) Hypertension CKD (chronic kidney disease) stage 5, GFR less than 15 ml/min Surgical History History of eye surgery History of cataract surgery Social History Alcohol intake: never Patient Tobacco Use Status: Never used Tobacco Review of Systems Const All systems reviewed & are unremarkable except as noted in HPI and below Physical Exam Vital Signs: Last Vital Signs Pulse 66 01/07/25 12:02 BP 142/60 H 01/07/25 12:02 Pulse Ox 99 01/07/25 12:02 Oxygen Delivery Method Room Air 01/07/25 12:02 BMI result Body Mass Index 21.2 Const General: comfortable and no acute distress Orientation/consciousness: patient oriented x3 HEENT Head: Yes normocephalic Mouth: Normal oral and palatal mucosa present Eyes EOM: EOMs intact bilaterally Neck Neck: Yes supple Resp Auscultation: clear to auscultation bilaterally Cardio Jugular venous distension: no JVD Rate: regular rate GI Palpation (GI): Soft to palpation Auscultation: normal bowel sounds General: Yes no CVA tenderness Back/Spine/Pelvis Back: no CVA tenderness Skin General skin exam: no rashes or lesions noted Neuro General: patient oriented x3 and moves all extremities Extrem General: Yes no pedal edema Office Meds epoetin [id number] 10,000 unit/mL injection solution Performing Provider: Matthieu Berrios MD [facility] Administered by: Matthieu Berrios MD on 01/07/25 15:33 Dose Route Admin Location Dispensed Lot Number Expiration Date [facility] Compatibility Test Engineer 20,000 unit subcut LUE 2 mL [id number] 06/15/26 4694-0795-17 [employer] Total Dispensed Waste 2 mL 0 % Results Reviewed Nephrology Results: Hgb, (14.0-18.0) 9.0 g/dl L 07/30/24 WBC, (4.8-10.8) 4.1 X10*3/uL L 07/30/24 Plt Count, (160-400) 149 X10*3/uL L 07/30/24 Sodium, (135-145) 142 mmol/L 07/30/24 Potassium, (3.3-5.1) 5.3 mmol/L H 07/30/24 Chloride, (96-108) 112 mmol/L H 07/30/24 Carbon Dioxide, (22-29) 19 mmol/L L 07/30/24 BUN, (9-16) 94 mg/dL H 07/30/24 Creatinine, (0.5-1.4) 8.80 mg/dL H* 07/30/24 Calcium, (8.4-10.2) 8.6 mg/dL 07/30/24 Phosphorus, (2.7-4.5) 3.8 mg/dL 07/30/24 PTH Intact, (8.7-77.1) 209.0 pg/mL H 07/30/24 Assessment & Plan Assessment & Plan (1) Hypertension: Code(s): I10 - Essential (primary) hypertension Category: Medical Qualifiers: Hypertension type: primary hypertension Qualified Code(s): I10 - Esse ntial (primary) hypertension (2) Secondary hyperparathyroidism (of renal origin): Code(s): N25.81 - Secondary hyperparathyroidism of renal origin Category: Medical (3) CKD (chronic kidney disease) stage 5, GFR less than 15 ml/min: Code(s): N18.5 - Chronic kidney disease, stage 5 Category: Medical (4) Hyperphosphatemia: Code(s): E83.39 - Other disorders of phosphorus metabolism Category: Medical (5) Hyperkalemia: Code(s): E87.5 - Hyperkalemia Category: Medical (6) Anemia in chronic kidney disease (CKD): Code(s): N18.9 - Chronic kidney disease, unspecified; D63.1 - Anemia in chronic kidney disease Category: Medical Qualifiers: Chronic kidney disease stage: stage 5, not on chronic dialysis Qualified Code(s): N18.5 - Chronic kidney disease, stage 5; D63.1 - Anemia in chronic kidney disease Plan Maik has 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 He denies uremic symptoms. He has a functioning AV fistula. His blood pressure has been at goal at home. He should continue Kayexalate . He is on sodium bicarbonate . He has declined transplant evaluation in the past. There are no clinical indication for him to be initiated on hemodialysis. He is on ferrous sulfate. His transferrin saturations are appropriate. He is on vitamin-D. I have asked him to continue current dose of calcitriol. I gave him 00084 Units of Procrit today. He should continue Renvela 800 mg tid with meals. All questions answered. Follow-up given Orders: Orders Complete Blood Count Auto Diff 1 Month E83.39 - Other disorders of phosphorus metabolism, E87.5 - Hyperkalemia, I10 - Essential (primary) hypertension, N18.5 - Chronic kidney disease, stage 5, N25.81 - Secondary hyperparathyroidism of renal origin Creatinine 1 Month E83.39 - Other disorders of phosphorus metabolism, E87.5 - Hyperkalemia, I10 - Essential (primary) hypertension, N18.5 - Chronic kidney disease, stage 5, N25.81 - Secondary hyperparathyroidism of renal origin AMB Epoetin Injection Practice Supplied Today D63.1 - Anemia in chronic kidney disease, N18.5 - Chronic kidney disease, stage 5 Blood Urea Nitrogen 1 Month E83.39 - Other disorders of phosphorus metabolism, E87.5 - Hyperkalemia, I10 - Essential (primary) hypertension, N18.5 - Chronic kidney disease, stage 5, N25.81 - Secondary hyperparathyroidism of renal origin Electrolytes 1 Month E83.39 - Other disorders of phosphorus metabolism, E87.5 - Hyperkalemia, I10 - Essential (primary) hypertension, N18.5 - Chronic kidney disease, stage 5, N25.81 - Secondary hyperparathyroidism of renal origin Medications: Refilled sodium polystyrene sulfonate 30 grams orally four times a week; 453.6 grams 7RF 90 days Coding Level of Care Code Est Pt Level 4 (18236) Diagnoses Primary hypertension I10 Hypertension type: primary hypertension Secondary hyperparathyroidism (of renal origin) N25.81 CKD (chronic kidney disease) stage 5, GFR less than 15 ml/min N18.5 Hyperphosphatemia E83.39 Hyperkalemia E87.5 Anemia in stage 5 chronic kidney disease, not on chronic dialysis N18.5; D63.1 Chronic kidney disease stage: stage 5, not on chronic dialysis
[2025-01-07 12:02] VITALS: BP 142/60; PULSE 66; O2SAT 99; BMI 21.2
--- OUTSIDE RECORDS SUMMARY | 2025-01-07 12:34 | XMS_ITS | Clinical Summary ---
Author Organization [facility] Address [address] [facility] [address] [place] [address] Phone Care Team Providers Care Advertising Account Executive Name Role Phone Maynor Potts MD Primary Care Provider [phone] Allergies No known active allergies Medications aspirin [...] Health Medicare [facility] Medicare Care Teams Advertising Account Executive Relationship Specialty Start Date End Date Maynor Potts MD [address] [address] PCP - General Internal Medicine 08/27/20
--- OUTSIDE RECORDS SUMMARY | 2025-01-07 12:34 | XMS_ITS | Clinical Summary ---
Author Organization [facility] Address [address] [place] [address] Phone Care Team Providers Care Director Of Partner Marketing Name Role Phone Maynor Potts MD Primary Care Provider Allergies No known active allergies Medications aspirin 81 mg EC tablet Take 1 Tab by mouth daily. 3 Active atorvastatin (LIPITOR) 20 mg tablet 20 mg. 3 Active calcitrioL (ROCALTROL) 0.25 mcg capsule Take 1 Cap by mouth daily. 8 Active cholecalciferol (VITAMIN D-3) 50 mcg (2,000 unit) capsule TAKE 1 CAPSULE BY MOUTH EVERY DAY 4 Active ferrous sulfate 325 mg (65 mg elemental iron) tablet Take 1 tablet by mouth 2 times daily. 8 Active OneTouch Ultra Test test strip Check twice a day. 3 Active metoprolol tartrate (LOPRESSOR) 25 mg tablet Take 1 Tab by mouth 2 times daily. 8 Active glucose blood (Blood Glucose Test) test strip 1 Strip by In Vitro route 3 times daily. DX: E11.9 3 Active sodium bicarbonate 650 mg tablet Take 1 Tab by mouth 2 times daily. 8 Active sodium polystyrene (KAYEXALATE) powder Take 1 g by mouth. 7 Active levothyroxine (SYNTHROID, LEVOTHROID) 112 mcg tablet TAKE 1 TABLET BY MOUTH 1 TIME EACH DAY. 90 tablet 4 5 Active levothyroxine (SYNTHROID, LEVOTHROID) 112 mcg tablet Take 1 tablet (112 mcg total) by mouth 1 (one) time each day. 30 each 11 025 Discontinued Active Problems Problem Noted Date Diagnosed Date UTI (urinary tract infection) 05/23/2019 Anemia 04/19/2018 Type 2 diabetes mellitus wit h renal manifestations ([facility] [place], [facility] V28) 04/19/2018 Type 2 diabetes mellitus wit h eye manifestations ([facility] [place], [facility] V28) 04/19/2018 Benign localized hyperplasia of prostate with urinary obstruction 12/19/2017 CKD (chronic kidney disease) stage 5, GFR less than 15 ml/min ([facility] V24, [facility] V28) 12/19/2017 Hyperlipidemia 12/19/2017 Hypertension 12/19/2017 Hypothyroidism 12/19/2017 Proteinuria 12/19/2017 Type 2 diabetes mellitus wit h cataract ([facility] [place]24, [facility] V28) 12/19/2017 AV fistula ([place] [id number]) 08/16/2017 Vitamin B12 deficiency 11/09/2016 Cataract 12/25/2014 Overview (02/14/2024): S/p surgery Hyperparathyroidism ([facility] V24) 10/02/2013 Background diabetic retinopathy ([facility] V24, [facility] V28) 03/01/2012 Overview (02/14/2024): S/p laser treatment Encounters Date Type Department Care Team Description 11/18/2024 Telephone Internal Medicine [address] [id number] Maynor Potts MD 11/13/2024 Telephone Internal Medicine [facility] [address] [address] Maynor Potts MD from Last 3 Months Immunizations Name Administration [...] Date Comments Anemia 04/19/2018 DX:Anemia AV fistula ([facility] V24) 08/16/2017 DX:AV f istula ([facility]) Background diabetic retinopa thy ([facility]24, [facility] V28) 03/01/2012 DX:Background diabetic retin opathy ([facility]); COMMENT: S/p laser treatment Benign localized hyperplasia of prostate with urinary obstruction 12/19/2017 DX:Benign localized hyperpla faustino of prostate with urinary obstruction Cataract 12/25/2014 DX:Cataract; COM MENT: S/p surgery CKD (chronic kidney disease) stage 5, GFR less than 15 ml/min ([facility]24, [facility] V28) 12/19/2017 DX:CKD (chronic kidney disea se) stage 5, GFR less than 15 ml/min ([facility]) Hyperlipidemia 12/19/2017 DX:Hyperlipidemi a Hyperparathyroidism ([facility] V24) 10/02/2013 DX:Hyperparathyroidism ([facility]) Hypertension 12/19/2017 DX:Hypertension Hypothyroidism 12/19/2017 DX:Hypothyroidis m Proteinuria 12/19/2017 DX:Proteinuria Type 2 diabetes mellitus wit h cataract ([facility]24, [facility] V28) 12/19/2017 DX:Type 2 diabetes mellitus with cataract ([facility]) Type 2 diabetes mellitus wit h eye manifestations ([facility]24, [facility] V28) 04/19/2018 DX:Type 2 diabetes mellitus with eye manifestations ([facility]) Type 2 diabetes mellitus wit h renal manifestations ([facility], [facility] V28) 04/19/2018 DX:Type 2 diabetes mellitus with renal manifestations ([facility]) Vitamin B12 deficiency 11/09/2016 DX:Vitami n B12 [...] AM EST Office Visit Internal Medicine - [address] [place] [address] Maynor Potts MD [address] [place] [phone] Health Maintenance Due Date Last Done Comments Diabetes: Annual Foot Exam 1956 Diabetes: Annual Retina Eye Exam 1955 DTaP,Tdap,and Td Vaccines (1 - Tdap) 1965 Zoster Vaccines (1 of 2) 1965 RSV Immunization Adult Patients (1 - 1-dose 75+ series) 2021 Falls Risk Assessment 04/23/2022 Hepatitis C Screening 04/23/2022 Medicare Annual Wellness Visit 04/23/2022 Social Influencers of Health Screening 04/23/2022 Diabetes: Blood Sugar Control Test (HGBA1C) 10/24/2023 04/24/2023 COVID-19 Vaccine ( season) 2024 03/31/2023, 03/17/2022, 08/23/2021, Additional history exists Depression Screening 05/15/2024 Influenza Vaccine (#1) 2025 02/12/2017 Hypertension/CHF/CAD Annual BMP Blood Test 12/30/2025 12/30/2024, 11/25/2024, 10/29/2024, Additional history exists Cholesterol Screening (Lipid Panel) [...] Diagnosis Comments CBC WITH AUTO DIFFERENTIAL Routine 12/30/2024 8:29 AM EDT Essential hypertension, malignant Secondary hyperparathyroidism of renal origin (CMS/HCC V24) Chronic kidney disease, stage V (CMS/HCC V24, CMS/HCC V28) Hypophosphaturia Hyperpotassemia Anemia of chronic renal failure CALCIUM Routine 12/30/2024 8:29 AM EDT Essential hypertension, malignant Secondary hyperparathyroidism of renal origin (CMS/HCC V24) Chronic kidney disease, stage V (CMS/HCC V24, CMS/HCC V28) Hypophosphaturia Hyperpotassemia Anemia of chronic renal failure BUN Routine 12/30/2024 8:29 AM EDT Essential hypertension, malignant Secondary hyperparathyroidism of renal origin (CMS/HCC V24) Chronic kidney disease, stage V (CMS/HCC V24, CMS/HCC V28) Hypophosphaturia Hyperpotassemia Anemia of chronic renal failure CREATININE, SERUM Routine 12/30/2024 8:2 9 AM EDT Essential hypertension, malignant Secondary hyperparathyroidism of renal origin (CMS/HCC V24) Chronic kidney disease, stage V (CMS/HCC V24, CMS/HCC V28) Hypophosphaturia Hyperpotassemia Anemia of chronic renal failure ELECTROLYTE PANEL Routine 12/30/2024 8:2 9 AM EDT Essential hypertension, malignant Secondary hyperparathyroidism of renal origin (CMS/HCC V24) Chronic kidney disease, stage V (CMS/HCC V24, CMS/HCC V28) Hypophosphaturia Hyperpotassemia Anemia of chronic renal failure CBC AND DIFFERENTIAL Routine 12/30/2024 8:29 AM EDT Essential hypertension, malignant Secondary hyperparathyroidism of renal origin (CMS/HCC V24) Chronic kidney disease, stage V (CMS/HCC V24, CMS/HCC V28) Hypophosphaturia Hyperpotassemia Anemia of chronic renal failure CBC WITH AUTO DIFFERENTIAL Routine 11/25/2024 9:07 AM EDT Essential hypertension, malignant Secondary hyperparathyroidism of renal origin (CMS/HCC V24) Chronic kidney disease, stage V (CMS/HCC V24, CMS/HCC V28) Hypophosphaturia Hyperpotassemia Anemia of chronic renal failure ELECTROLYTE PANEL Routine 11/25/2024 9:0 7 AM EDT Essential hypertension, malignant Secondary hyperparathyroidism of renal origin (CMS/HCC V24) Chronic kidney disease, stage V (CMS/HCC V24, CMS/HCC V28) Hypophosphaturia Hyperpotassemia Anemia of chronic renal failure BUN Routine 11/25/2024 9:07 AM EDT Essential hypertension, malignant Secondary hyperparathyroidism of renal origin (CMS/HCC V24) Chronic kidney disease, stage V (CMS/HCC V24, CMS/HCC V28) Hypophosphaturia Hyperpotassemia Anemia of chronic renal failure CREATININE, SERUM Routine 11/25/2024 9:0 7 AM EDT Essential hypertension, malignant Secondary hyperparathyroidism of renal origin (CMS/HCC V24) Chronic kidney disease, stage V (CMS/HCC V24, CMS/HCC V28) Hypophosphaturia Hyperpotassemia Anemia of chronic renal failure CBC AND DIFFERENTIAL Routine 11/25/2024 9:07 AM EDT Essential hypertension, malignant Secondary hyperparathyroidism of renal origin (CMS/HCC V24) Chronic kidney disease, stage V (CMS/HCC V24, CMS/HCC V28) Hypophosphaturia Hyperpotassemia Anemia of chronic renal failure CALCIUM Routine 11/25/2024 9:07 AM EDT Essential hypertension, malignant Secondary hyperparathyroidism of renal origin (CMS/HCC V24) Chronic kidney disease, stage V (CMS/HCC V24, CMS/HCC V28) Hypophosphaturia Hyperpotassemia Anemia of chronic renal failure CBC WITH AUTO DIFFERENTIAL Routine 10/29/2024 8:42 [...] CMS/HCC V28) Anemia of chronic renal failure HEMOGLOBIN A1C Routine 04/24/2023 LIPID PANEL Routine 04/24/2023 from Last 3 Months or Most Recently Relevant to Health Maintenance Results * (ABNORMAL) CBC auto differential (12/30/2024 8:29 AM EDT) Only the most recent of3 resultswithin the time period is included. WBC 4.8 4.8 - 10.8 K/mcL LAB HEMETOLOGY METHOD 12/30/2024 9:34 AM [facility] RBC 3.40(L) 4.50 - 5.50 M/mcL LAB HEMETOLOGY METHOD 12/30/2024 9:34 AM [facility] Hemoglobin 10.0(L) 13.5 - 17.5 g/dL LAB HEMETOLOGY METHOD 12/30/2024 9:34 AM [facility] Hematocrit 33.6(L) 42.0 - 54.0 % LAB HEMETOLOGY METHOD 12/30/2024 9:34 AM [facility] MCV 99.7(H) 79.0 - 98.0 FL LAB HEMETOLOGY METHOD 12/30/2024 9:34 AM [facility] MCH 29.7 27.0 - 32.0 pcg LAB HEMETOLOGY METHOD 12/30/2024 9:34 AM [facility] MCHC 29.8(L) 32.0 - 37.0 g/dL LAB HEMETOLOGY METHOD 12/30/2024 9:34 AM [facility] RDW 15.0 11.0 - 15.0 % LAB HEMETOLOGY METHOD 12/30/2024 9:34 AM [facility] Platelets 150 130 - 400 K/mcL LAB HEMETOLOGY METHOD 12/30/2024 9:34 AM [facility] MPV 11.3(H) 7.0 - 11.0 FL LAB HEMETOLOGY METHOD 12/30/2024 9:34 AM [facility] NRBC 0.0 <1.0 % LAB HEMETOLOGY METHOD 12/30/2024 9:34 AM [facility] NRBC Absolute 0.00 <0.10 K/mcL LAB HEMETOLOGY METHOD 12/30/2024 9:34 AM [facility] Neutrophils Relative 70.5 % LAB HEMETOLOGY METHOD 12/30/2024 9:34 AM [facility] Lymphocytes Relative 20.5 % LAB HEMETOLOGY METHOD 12/30/2024 9:34 AM [facility] Monocytes Relative 8.4 % LAB HEMETOLOGY METHOD 12/30/2024 9:34 AM [facility] Eosinophils Relative 0.2 % LAB HEMETOLOGY METHOD 12/30/2024 9:34 AM [facility] Basophils Relative 0.2 % LAB HEMETOLOGY METHOD 12/30/2024 9:34 AM [facility] Immature Granulocytes Relative 0.2 % LAB HEMETOLOGY METHOD 12/30/2024 9:34 AM [facility] Neutrophils Absolute 3.36 1.50 - 7.00 K/mcL LAB HEMETOLOGY METHOD 12/30/2024 9:34 AM EDT [facility] Lymphocytes Absolute 0.98(L) 1.00 - 5.00 K/mcL LAB HEMETOLOGY METHOD 12/30/2024 9:34 AM EDT [facility] Monocytes Absolute 0.40 0.20 - 1.00 K/mcL LAB HEMETOLOGY METHOD 12/30/2024 9:34 AM EDT [facility] Eosinophils Absolute 0.01 0.00 - 0.50 K/mcL LAB HEMETOLOGY METHOD 12/30/2024 9:34 AM EDT [facility] Basophils Absolute 0.01 0.00 - 0.20 K/mcL LAB HEMETOLOGY METHOD 12/30/2024 9:34 AM EDT [facility] Immature Granulocytes Absolute 0.01 0.00 - 0.03 K/mcL LAB HEMETOLOGY METHOD 12/30/2024 9:34 AM T [facility] Blood Venous blood specimen / Unknown Venipuncture / Unknown 12/30/2024 8:29 AM EDT 12/30/2024 9:25 AM EDT Matthieu Berrios MD LAB BLOOD ORDERABLES Final Resul t [facility] [address] [place] [address], * (ABNORMAL) Creatinine (12/30/2024 8:29 AM EDT) Only the most recent of3 resultswithin the time period is included. Creatinine 9.42(H) 0.70 - 1.30 mg/dL LAB CHEMISTRY METHOD 12/30/2024 10:01 AM EDT [facility] eGFR 5(L) >=60 mL/min/1. 73m2 LAB CHEMISTRY METHOD 12/30/2024 10:01 AM EDT [facility] Comment:Calculation based on the Chronic Kidney Disease Epidemiology Collaboration (CKD-EPI) equation refit without adjustment for race. Blood Venous blood specimen / Unknown Venipuncture / Unknown 12/30/2024 8:29 AM EDT 12/30/2024 9:20 AM EDT us Matthieu Berrios MD LAB BLOOD ORDERABLES Final Resul t Performing Organization Address City/[facility] Co de Phone Number [facility] [address] [place] [address], * (ABNORMAL) BUN (12/30/2024 8:29 AM EDT) Only the most recent of3 resultswithin the time period is included. BUN 86(H) 5 - 25 mg/dL LAB CHEMISTRY METHOD 12/30/2024 10:01 AM EDT [facility] Blood Venous blood specimen / Unknown Venipuncture / Unknown 12/30/2024 8:29 AM EDT 12/30/2024 9:20 AM EDT us Matthieu Berrios MD LAB BLOOD ORDERABLES Final Resul t Performing Organization Address [facility] de Phone Number [facility] [address] [place] [address], [place] [phone] * Calcium (12/30/2024 8:29 AM EDT) Only the most recent of3 resultswithin the time period is included. Calcium 9.2 8.5 - 10.5 mg/dL LAB CHEMISTRY METHOD 12/30/2024 9:51 AM EDT [facility] Blood Venous blood specimen / Unknown Venipuncture / Unknown 12/30/2024 8:29 AM EDT 12/30/2024 9:20 AM EDT us Matthieu Berrios MD LAB BLOOD ORDERABLES Final Resul t Performing Organization Address City/[facility] de Phone Number [facility] [address] [place] [address], [place] [phone] * (ABNORMAL) Electrolyte panel (12/30/2024 8:29 AM EDT) Only the most recent of3 resultswithin the time period is included. Sodium 138 133 - 145 mmol/L LAB CHEMISTRY METHOD 12/30/2024 9:51 AM EDT [facility] Potassium 5.7(H) 3.5 - 5.5 mmol/L LAB CHEMISTRY METHOD 12/30/2024 9:51 AM EDT [facility] Chloride 111(H) 96 - 110 mmol/L LAB CHEMISTRY METHOD 12/30/2024 9:51 AM EDT [facility] CO2 22 21 - 32 mmol/L LAB CHEMISTRY METHOD 12/30/2024 9:51 AM EDT [facility] Anion Gap 5 3 - 11 LAB CHEMISTRY METHOD 12/30/2024 9:51 AM EDT [facility] Blood Venous blood specimen / Unknown Venipuncture / Unknown 12/30/2024 8:29 AM EDT 12/30/2024 9:20 AM EDT Matthieu Berriso MD LAB BLOOD ORDERABLES Final Resul t [facility] [address] [place] [address], [place] [phone] * (ABNORMAL) Iron and TIBC (10/29/2024 8:42 AM EDT) Iron 69 50 - 160 mcg/dL LAB CHEMISTRY METHOD 10/29/2024 10:33 AM EDT [facility] TIBC 226(L) 250 - 450 mcg/dL LAB CHEMISTRY METHOD 10/29/2024 10:33 AM EDT [facility] Iron Saturation 31 20 - 50 % LAB CHEMISTRY METHOD 10/29/2024 10:33 AM EDT [facility] Blood Venous blood specimen / Unknown Venipuncture / Unknown 10/29/2024 8:42 AM EDT 10/29/2024 9:42 AM EDT us Matthieu Berrios MD LAB BLOOD ORDERABLES Final Resul t Performing Organization Address City/[facility]/ZIP Co de Phone Number [facility] [address] [place] [address], [place] [phone] * (ABNORMAL) Transferrin (10/29/2024 8:42 AM EDT) Transferrin 178(L) 200 - 360 mg/dL 10/31/2024 4:23 AM EDT [facility] Comment: Test performed at [facility], [address], [place] [address] Brenda Davis MD, PhD - Formulation Scientist Blood Venous blood specimen / Unknown Venipuncture / Unknown 10/29/2024 8:42 AM EDT 10/29/2024 9:41 AM EDT us Matthieu Berrios MD LAB BLOOD ORDERABLES Final Resul t Performing Organization Address [facility]/ZIP Co de Phone Number [facility] [address] [place] [address] * (ABNORMAL) Phosphorus (10/29/2024 8:42 AM EDT) Phosphorus 5.1(H) 2.5 - 4.5 mg/dL LAB CHEMISTRY METHOD 10/29/2024 10:33 AM EDT [facility] Blood Venous blood specimen / Unknown Venipuncture / Unknown 10/29/2024 8:42 AM EDT 10/29/2024 9:42 AM EDT us Matthieu Berrios MD LAB BLOOD ORDERABLES Final Resul t Performing Organization Address City/[facility]/ZIP Co de Phone Number [facility] [address] [place] [address], [place] [phone] * (ABNORMAL) Parathyroid hormone intact (10/29/2024 8:42 AM EDT) [facility] PTH 151.9(H) 18.5 - 88.0 pcg/mL LAB CHEMISTRY METHOD 10/29/2024 11:23 AM EDT [facility] Blood Venous blood specimen / Unknown Venipuncture / Unknown 10/29/2024 8:42 AM EDT 10/29/2024 9:42 AM EDT Matthieu Berrios MD LAB BLOOD ORDERABLES Final Resul t [facility] [address] [place] [address], * Ferritin (10/29/2024 8:42 AM EDT) [facility] Ferritin 153 26 - 388 ng/mL LAB CHEMISTRY METHOD 10/29/2024 10:34 AM EDT [facility] Blood Venous blood specimen / Unknown Venipuncture / Unknown 10/29/2024 8:42 AM EDT 10/29/2024 9:42 AM EDT us Matthieu Berrios MD LAB BLOOD ORDERABLES Final Resul t [facility] [address] [place] [address], [place] [phone] * Hemoglobin A1c (04/24/2023) [facility] Hemoglobin A1C 5.2 <=6.5 % Blood Venous blood specimen / Unknown us Quoc Rivers MD LAB BLOOD ORDERABLES Domitila l Result * Lipid panel (04/24/2023) [facility] LDL/HDL Ratio 3 0 - 4 Triglycerides 69 0 - 150 mg/dL Cholesterol 152 0 - 200 mg/dL HDL 50 >=40 mg/dL LDL Cholesterol 89 0 - 100 mg/dL Blood Venous blood specimen / Unknown us Historical Provider LAB BLOOD ORDERABLES Domitila briseno Result from Last 3 Months or Most Recently Relevant to Health Maintenance Insurance [employer] Member Subscriber Plan / Payer (Ef fective 2023-Present) Name:BERONICA STONER Relation to Subscriber:Self Name:Beronica Stoner Payer ID:[id number] Group ID:[id number] Type:Not on file Address: [facility] [address] [place] [phone] Care Teams Director Of Partner Marketing Relationship Specialty Start Date End Date Maynor Potts MD [address] [address] PCP - General Internal Medicine 11/26/20
== END 2025-01-07 12:17 | disposition home or self-care (01) ==
LOC: HO.HKAS 11:39
PROVIDERS: PCP Internal Medicine; Visit Provider Internal Medicine Nephrology
DX: I12.0 Hypertensive chronic kidney disease with stage 5 chronic kidney disease or end stage renal disease (principal); N25.81 Secondary hyperparathyroidism of renal origin; N18.5 Chronic kidney disease, stage 5; E83.39 Other disorders of phosphorus metabolism; E87.5 Hyperkalemia; D63.1 Anemia in chronic kidney disease
CPT/HCPCS: 99214

== ENCOUNTER → 2025-01-07 11:38 | Outpatient (BNVA) | payer OTHER, SELFPAY | PROVIDERS: PCP Internal Medicine; Visit Provider Internal Medicine Nephrology | DX: I12.0 Hypertensive chronic kidney disease with stage 5 chronic kidney disease or end stage renal disease (principal); N18.5 Chronic kidney disease, stage 5; N25.81 Secondary hyperparathyroidism of renal origin; E83.39 Other disorders of phosphorus metabolism; E87.5 Hyperkalemia; D63.1 Anemia in chronic kidney disease | CPT/HCPCS: 96372; Q5106 ==

== ENCOUNTER 2025-02-06 11:45 | Outpatient (AMB) | payer OTHER, SELFPAY ==
--- NOTE | 2025-02-06 11:49 | HO.NEPHOV_ITS ---
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 He denies any uremic symptoms or hypoglycemias. His weight had been stable. His blood sugar well controlled. He denies any nausea, vomiting, shortness of breath, pedal edema, urinary symptoms, tremors, confusion, chest pain. Otherwise there were no new active complaints at the time of this office visit [facility] Medical History AVF (arteriovenous fistula) Secondary hyperparathyroidism (of renal origin) Anemia in chronic kidney disease (CKD) Hypertension CKD (chronic kidney disease) stage 5, GFR less than 15 ml/min Surgical History History of eye surgery History of cataract surgery Social History Alcohol intake: never Patient Tobacco Use Status: Never used Tobacco Review of Systems Const All systems reviewed & are unremarkable except as noted in HPI and below Physical Exam Vital Signs: Last Vital Signs Pulse 68 02/06/25 12:02 BP 130/74 02/06/25 12:02 Pulse Ox 98 02/06/25 12:02 Oxygen Delivery Method Room Air 02/06/25 12:02 BMI result Body Mass Index 21.7 Const General: comfortable and no acute distress Orientation/consciousness: patient oriented x3 HEENT Head: Yes normocephalic Mouth: Normal oral and palatal mucosa present Eyes EOM: EOMs intact bilaterally Neck Neck: Yes supple Resp Auscultation: clear to auscultation bilaterally Cardio Jugular venous distension: no JVD Rate: regular rate GI Palpation (GI): Soft to palpation Auscultation: normal bowel sounds General: Yes no CVA tenderness Back/Spine/Pelvis Back: no CVA tenderness Skin General skin exam: no rashes or lesions noted Neuro General: patient oriented x3 and moves all extremities Extrem General: Yes no pedal edema Office Meds epoetin [id number] 10,000 unit/mL injection solution Performing Provider: Matthieu Berrios MD Performing Location: [facility] Administered by: Matthieu Berrios MD on 02/06/25 12:10 Dose Route Admin Location Dispensed Lot Number Expiration Date [facility] Collections Assistant 20,000 unit subcut LUE 2 mL [id number] 06/15/26 4482-8962-76 [employer] Total Dispensed Waste 2 mL 0 % Results Reviewed Nephrology Results: Hgb, (14.0-18.0) 9.0 g/dl L 07/30/24 WBC, (4.8-10.8) 4.1 X10*3/uL L 07/30/24 Plt Count, (160-400) 149 X10*3/uL L 07/30/24 Sodium, (135-145) 142 mmol/L 07/30/24 Potassium, (3.3-5.1) 5.3 mmol/L H 07/30/24 Chloride, (96-108) 112 mmol/L H 07/30/24 Carbon Dioxide, (22-29) 19 mmol/L L 07/30/24 BUN, (9-16) 94 mg/dL H 07/30/24 Creatinine, (0.5-1.4) 8.80 mg/dL H* 07/30/24 Calcium, (8.4-10.2) 8.6 mg/dL 07/30/24 Phosphorus, (2.7-4.5) 3.8 mg/dL 07/30/24 PTH Intact, (8.7-77.1) 209.0 pg/mL H 07/30/24 Assessment & Plan Assessment & Plan (1) Hypertension: Code(s): I10 - Essential (primary) hypertension Category: Medical Qualifiers: Hypertension type: primary hypertension Qualified Code(s): I10 - Essential (primary) hypertension (2) Secondary hyperparathyroidism (of renal origin): Code(s): N25.81 - Secondary hyperparathyroidism of renal origin Category: Medical (3) CKD (chronic kidney disease) stage 5, GFR less than 15 ml/min: Code(s): N18.5 - Chronic kidney disease, stage 5 Category: Medical (4) Hyperphosphatemia: Code(s): E83.39 - Other disorders of phosphorus metabolism Category: Medical (5) Hyperkalemia: Code(s): E87.5 - Hyperkalemia Category: Medical (6) Anemia in chronic kidney disease (CKD): Code(s): N18.9 - Chronic kidney disease, unspecified; D63.1 - Anemia in chronic kidney disease Category: Medical Qualifiers: Chronic kidney disease stage: stage 5, not on chronic dialysis Qualified Code(s): N18.5 - Chronic kidney disease, stage 5; D63.1 - Anemia in chronic kidney disease Plan Maik has 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 He denies uremic symptoms. He has a functioning AV fistula. His blood pressure has been at goal at home. He should continue Kayexalate . He is on sodium bicarbonate . He has declined transplant evaluation in the past. There are no clinical indication for him to be initiated on hemodialysis. He is on ferrous sulfate. His transferrin saturations are appropriate. He is on vitamin-D. I have asked him to continue current dose of calcitriol. I gave him [id number] Units of Procrit today. He should continue Renvela 800 mg tid with meals. All questions answ ered. Follow-up given Orders: Orders AMB Epoetin Injection Practice Supplied Today D63.1 - Anemia in chronic kidney disease, N18.5 - Chronic kidney disease, stage 5 Complete Blood Count Auto Diff 3 Weeks D63.1 - Anemia in chronic kidney disease, E83.39 - Other disorders of phosphorus metabolism, E87.5 - Hyperkalemia, I10 - Essential (primary) hypertension, N18.5 - Chronic kidney disease, stage 5, N25.81 - Secondary hyperparathyroidism of renal origin Creatinine 3 Weeks D63.1 - Anemia in chronic kidney disease, E83.39 - Other disorders of phosphorus metabolism, E87.5 - Hyperkalemia, I10 - Essential (primary) hypertension, N18.5 - Chronic kidney disease, stage 5, N25.81 - Secondary hyperparathyroidism of renal origin Ferritin 3 Weeks D63.1 - Anemia in chronic kidney disease, E83.39 - Other disorders of phosphorus metabolism, E87.5 - Hyperkalemia, I10 - Essential (primary) hypertension, N18.5 - Chronic kidney disease, stage 5, N25.81 - Secondary hyperparathyroidism of renal origin IRON PROFILE 3 Weeks D63.1 - Anemia in chronic kidney disease, E83.39 - Other disorders of phosphorus metabolism, E87.5 - Hyperkalemia, I10 - Essential (primary) hypertension, N18.5 - Chronic kidney disease, stage 5, N25.81 - Secondary hyperparathyroidism of renal origin Blood Urea Nitrogen 3 Weeks D63.1 - Anemia in chronic kidney disease, E83.39 - Other disorders of phosphorus metabolism, E87.5 - Hyperkalemia, I10 - Essential (primary) hypertension, N18.5 - Chronic kidney disease, stage 5, N25.81 - Secondary hyperparathyroidism of renal origin Electrolytes 3 Weeks D63.1 - Anemia in chronic kidney disease, E83.39 - Other disorders of phosphorus metabolism, E87.5 - Hyperkalemia, I10 - Essential (primary) hypertension, N18.5 - Chronic kidney disease, stage 5, N25.81 - Secondary hyperparathyroidism of renal origin Calcium 3 Weeks D63.1 - Anemia in chronic kidney disease, E83.39 - Other disorders of phosphorus metabolism, E87.5 - Hyperkalemia, I10 - Essential (primary) hypertension, N18.5 - Chronic kidney disease, stage 5, N25.81 - Secondary hyperparathyroidism of renal origin Phosphorus 3 Weeks D63.1 - Anemia in chronic kidney disease, E83.39 - Other disorders of phosphorus metabolism, E87.5 - Hyperkalemia, I10 - Essential (primary) hypertension, N18.5 - Chronic kidney disease, stage 5, N25.81 - Secondary hyperparathyroidism of renal origin Coding Level of Care Code Est Pt Level 4 (91906) Diagnoses Primary hypertension I10 Hypertension type: primary hypertension Secondary hyperparathyroidism (of renal origin) N25.81 CKD (chronic kidney disease) stage 5, GFR less than 15 ml/min N18.5 Hyperphosphatemia E83.39 Hyperkalemia E87.5 Anemia in stage 5 chronic kidney disease, not on chronic dialysis N18.5; D63.1 Chronic kidney disease stage: stage 5, not on chronic dialysis
[2025-02-06 12:02] VITALS: BP 130/74; PULSE 68; O2SAT 98; BMI 21.7
--- OUTSIDE RECORDS SUMMARY | 2025-02-06 16:38 | XMS_ITS | Clinical Summary ---
Author Organization [facility] Address [address] [facility] [address] [place] [address] Phone Care Team Providers Care Toy Consultant Name Role Phone Maynor Potts MD Primary Care Provider [phone] Allergies No known active allergies Medications aspirin [...] Health Medicare [facility] [facility] Medicare Care Teams Toy Consultant Relationship Specialty Start Date End Date Maynor Potts MD [address] [address] PCP - General Internal Medicine 08/27/20
== END 2025-02-06 12:23 | disposition home or self-care (01) ==
LOC: HO.HKAS 11:46
PROVIDERS: PCP Internal Medicine; Visit Provider Internal Medicine Nephrology
DX: I12.0 Hypertensive chronic kidney disease with stage 5 chronic kidney disease or end stage renal disease (principal); N25.81 Secondary hyperparathyroidism of renal origin; N18.5 Chronic kidney disease, stage 5; E83.39 Other disorders of phosphorus metabolism; E87.5 Hyperkalemia; D63.1 Anemia in chronic kidney disease
CPT/HCPCS: 99214

== ENCOUNTER → 2025-02-06 11:45 | Outpatient (BNVA) | payer OTHER, SELFPAY | PROVIDERS: PCP Internal Medicine; Visit Provider Internal Medicine Nephrology | DX: N18.5 Chronic kidney disease, stage 5 (principal); D63.1 Anemia in chronic kidney disease | CPT/HCPCS: 96372; Q5106 ==

== ENCOUNTER 2025-03-11 10:25 | Outpatient (AMB) | payer OTHER, SELFPAY ==
--- NOTE | 2025-03-11 10:25 | HO.NEPHOV_ITS ---
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 He denies any uremic symptoms or hypoglycemias. His weight had been stable. His blood sugar well controlled. He denies any nausea, vomiting, shortness of breath, pedal edema, urinary symptoms, tremors, confusion, chest pain. Otherwise there were no new active complaints at the time of this office visit [facility] Medical History AVF (arteriovenous fistula) Secondary hyperparathyroidism (of renal origin) Anemia in chronic kidney disease (CKD) Hypertension CKD (chronic kidney disease) stage 5, GFR less than 15 ml/min Surgical History History of eye surgery History of cataract surgery Social History Alcohol intake: never Patient Tobacco Use Status: Never used Tobacco Review of Systems Const All systems reviewed & are unremarkable except as noted in HPI and below Physical Exam Const General: comfortable and no acute distress Orientation/consciousness: patient oriented x3 HEENT Head: Yes normocephalic Mouth: Normal oral and palatal mucosa present Eyes EOM: EOMs intact bilaterally Neck Neck: Yes supple Resp Auscultation: clear to auscultation bilaterally Cardio Jugular venous distension: no JVD Rate: regular rate GI Palpation (GI): Soft to palpation Auscultation: normal bowel sounds General: Yes no CVA tenderness Back/Spine/Pelvis Back: no CVA tenderness Skin General skin exam: no rashes or lesions noted Neuro General: patient oriented x3 and moves all extremities Extrem General: Yes no pedal edema Office Meds epoetin [id number] 10,000 unit/mL injection solution Performing Provider: Matthieu Berrios MD Performing Location[place] [facility] Administered by: Matthieu Berrios MD on 03/11/25 10:45 Dose Route Admin Location Dispensed Lot Number Expiration Date [facility] Marketing Services Manager 20,000 unit subcut LUE 2 mL [id number] 06/15/26 0441-5496-50 [employer] Total Dispensed Waste 2 mL 0 % Assessment & Plan Assessment & Plan (1) Hypertension: Code(s): I10 - Essential (primary) hypertension Category: Medical Qualifiers: Hypertension type: primary hypertension Qualified Code(s): I10 - Essential (primary) hypertension (2) Secondary hyperparathyroidism (of renal origin): Code(s): N25.81 - Secondary hyperparathyroidism of renal origin Category: Medical (3) CKD (chronic kidney disease) stage 5, GFR less than 15 ml/min: Code(s): N18.5 - Chronic kidney disease, stage 5 Category: Medical (4) Hyperphosphatemia: Code(s): E83.39 - Other disorders of phosphorus metabolism Category: Medical (5) Hyperkalemia: Code(s): E87.5 - Hyperkalemia Category: Medical (6) Anemia in chronic kidney disease (CKD): Code(s): N18.9 - Chronic kidney disease, unspecified; D63.1 - Anemia in chronic kidney disease Category: Medical Qualifiers: Chronic kidney disease stage: stage 5, not on chronic dialysis Qualified Code(s): N18.5 - Chronic kidney disease, stage 5; D63.1 - Anemia in chronic kidney disease Plan Maik has 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 He denies uremic symptoms. He has a functioning AV fistula. His blood pressure has been at goal at home. He should continue Kayexalate . He is on sodium bicarbonate . He has declined transplant evaluation in the past. There are no clinical indication for him to be initiated on hemodialysis. He is on ferrous sulfate. His transferrin saturations are appropriate. He is on vitamin-D. I have asked him to continue current dose of calcitriol. I gave him [id number] Units of Procrit today. He should continue Renvela 800 mg tid with meals. All questions answered. Follow-up given Orders: Orders Blood Urea Nitrogen 1 Month D63.1 - Anemia in chronic kidney disease, E83.39 - Other disorders of phosphorus metabolism, E87.5 - Hyperkalemia, I10 - Essential (primary) hypertension, N18.5 - Chronic kidney disease, stage 5, N25.81 - Secondary hyperparathyroidism of renal origin Creatinine 1 Month D63.1 - Anemia in chronic kidney disease, E83.39 - Other disorders of phosphorus metabolism, E87.5 - Hyperkalemia, I10 - Essential (primary) hypertension, N18.5 - Chronic kidney disease, stage 5, N25.81 - Secondary hyperparathyroidism of renal origin AMB Epoetin Injection Practice Supplied Today D63.1 - Anemia in chronic kidney disease, N18.5 - Chronic kidney disease, stage 5 Complete Blood Count Auto Diff 1 Month D63.1 - Anemia in chronic kidney disease, E83.39 - Other disorders of phosphorus metabolism, E87.5 - Hyperkalemia, I10 - Essential (primary) hypertension, N18.5 - Chronic kidney disease, stage 5, N25.81 - Secondary hyperparathyroidism of renal origin Electrolytes 1 Month D63.1 - Anemia in chronic kidney disease, E83.39 - Other disorders of phosphorus metabolism, E87.5 - Hyperkalemia, I10 - Essential (primary) hypertension, N18.5 - Chronic kidney disease, stage 5, N25.81 - Secondary hyperparathyroidism of renal origin Calcium 1 Month D63.1 - Anemia in chronic kidney disease, E83.39 - Other disorders of phosphorus metabolism, E87.5 - Hyperkalemia, I10 - Essential (primary) hypertension, N18.5 - Chronic kidney disease, stage 5, N25.81 - Secondary hyperparathyroidism of renal origin Coding Level of Care Code Est Pt Level 4 (35121) Diagnoses Primary hypertension I10 Hypertension type: primary hypertension Secondary hyperparathyroidism (of renal origin) N25.81 CKD (chronic kidney disease) stage 5, GFR less than 15 ml/min N18.5 Hyperphosphatemia E83.39 Hyperkalemia E87.5 Anemia in stage 5 chronic kidney disease, not on chronic dialysis N18.5; D63.1 Chronic kidney disease stage: stage 5, not on chronic dialysis
[2025-03-11 10:41] VITALS: BP 130/64; PULSE 66; O2SAT 100; BMI 21.4
--- OUTSIDE RECORDS SUMMARY | 2025-03-11 12:47 | XMS_ITS | Clinical Summary ---
Author Organization [facility] Address [address] [facility] [address] [place] [address] Phone Care Team Providers Care Cardiac Cath Technician Name Role Phone Maynor Potts MD Primary Care Provider [phone] Allergies No known active allergies Medications aspirin [...] Health Medicare [facility] [facility] Medicare Care Teams Cardiac Cath Technician Relationship Specialty Start Date End Date Maynor Potts MD [address] [address] PCP - General Internal Medicine 08/27/20
--- OUTSIDE RECORDS SUMMARY | 2025-03-11 12:47 | XMS_ITS | Clinical Summary ---
Author Organization [facility] Address [address] [place] [address] Phone Care Team Providers Care Adoption Counselor Name Role Phone Maynor Potts MD Primary Care Provider [phone] Allergies No known active allergies Medications aspirin [...] strip Check twice a day. 02/15/2023 Active metoprolol tartrate (LOPRESSOR) 25 mg tablet Take 1 Tab by mouth 2 times daily. 03/30/2018 Active glucose blood (Blood Glucose Test) test strip 1 Strip by In Vitro route 3 times daily. DX: E11.9 02/07/2023 Active sodium bicarbonate 650 mg tablet Take 1 Tab by mouth 2 times daily. 03/29/2018 Active sodium polystyrene (KAYEXALATE) powder Take 1 g by mouth. 03/28/2017 Active levothyroxine (SYNTHROID, LEVOTHROID) 112 mcg tablet TAKE 1 TABLET BY MOUTH 1 TIME EACH DAY. 90 tablet 4 12/09/2024 Active Active Problems Problem Noted Date Diagnosed Date UTI (urinary tract infection) 05/23/2019 Anemia 04/19/2018 Type 2 diabetes mellitus wit h renal manifestations ([facility] V24, [facility] V28) 04/19/2018 Type 2 diabetes mellitus wit h eye manifestations ([facility] V24, [facility] V28) 04/19/2018 Benign localized hyperplasia of prostate with urinary obstruction 12/19/2017 CKD (chronic kidney disease) stage 5, GFR less than 15 ml/min ([facility] V24, [facility] V28) 12/19/2017 Hyperlipidemia 12/19/2017 Hypertension 12/19/2017 Hypothyroidism 12/19/2017 Proteinuria 12/19/2017 Type 2 diabetes mellitus wit h cataract ([facility] V24, [facility] V28) 12/19/2017 AV fistula ([facility] V24) 08/16/2017 Vitamin B12 deficiency 11/09/2016 Cataract 12/25/2014 Overview (02/14/2024): S/p surgery Hyperparathyroidism ([facility] V24) 10/02/2013 Background diabetic retinopathy ([place] [id number], [facility] V28) 03/01/2012 Overview (02/14/2024): S/p laser treatment Immunizations Immunization Administration Dates Next Due Pneumococcal conjugate 13 va lent (Prevnar 13, PCV13) 2mo and older 03/16/2016 Surgical History Surgery Date Site/Laterality Comments COLONOSCOPY PROCEDURE: HISTORICAL COLONOSCOPY CATARACT EXTRACTION PROCEDURE: HISTORICAL CATARACT REMOVAL EYE SURGERY PROCEDURE: HISTORICAL EYE SURGERY; COMMENT: laser treatment to retina OTHER SURGICAL HISTORY PROCEDURE: AV FISTULA OR GRAFT VENOUS Medical History Medical History Date Comments Anemia 04/19/2018 DX:Anemia AV fistula ([facility] V24) 08/16/2017 DX:AV f istula ([facility]) Background diabetic retinopa thy ([facility] V24, [facility] V28) 03/01/2012 DX:Background diabetic retin opathy ([facility]); COMMENT: S/p laser treatment Benign localized hyperplasia of prostate with urinary obstruction 12/19/2017 DX:Benign localized hyperpla faustino of prostate with urinary obstruction Cataract 12/25/2014 DX:Cataract; COM MENT: S/p surgery CKD (chronic kidney disease) stage 5, GFR less than 15 ml/min ([facility] V24, [facility] V28) 12/19/2017 DX:CKD (chronic kidney disea se) stage 5, GFR less than 15 ml/min ([facility]) Hyperlipidemia 12/19/2017 DX:Hyperlipidemi a Hyperparathyroidism ([facility] V24) 10/02/2013 DX:Hyperparathyroidism ([facility]) Hypertension 12/19/2017 DX:Hypertension Hypothyroidism 12/19/2017 DX:Hypothyroidis m Proteinuria 12/19/2017 DX:Proteinuria Type 2 diabetes mellitus wit h cataract ([facility] V24, [facility] V28) 12/19/2017 DX:Type 2 diabetes mellitus with cataract ([facility]) Type 2 diabetes mellitus wit h eye manifestations ([facility] V24, [facility] V28) 04/19/2018 DX:Type 2 diabetes mellitus with eye manifestations ([facility]) Type 2 diabetes mellitus wit h renal manifestations ([facility] V24, [facility] V28) 04/19/2018 DX:Type 2 diabetes mellitus with renal manifestations ([facility]) Vitamin B12 deficiency 11/09/2016 DX:Vitami n B12 [...] AM EST Office Visit Internal Medicine - [address] [place] [address] Maynor Potts MD [address] [place] [phone] Health Maintenance Due Date Last Done Comments [...] Blood Sugar Control Test (HGBA1C) 10/24/2023 04/24/2023 Depression Screening 05/15/2024 COVID-19 Vaccine ( season) 2025 03/31/2023, 03/17/2022, 08/23/2021, Additional history exists Influenza Vaccine (#1) 2025 02/12/2017 Hypertension/CHF/CAD Annual BMP Blood Test 03/04/2026 03/04/2025, 01/30/2025, 12/30/2024, Additional history exists Cholesterol Screening (Lipid Panel) [...] Diagnosis Comments CBC WITH AUTO DIFFERENTIAL Routine 03/04/2025 8:16 AM EDT Chronic kidney disease, stage V (CMS/HCC V24, CMS/HCC V28) Anemia of chronic renal failure Hyperkalemia Alkaline phosphatase deficiency Secondary hyperparathyroidism of renal origin (CMS/HCC V24) Hypertension, essential CALCIUM Routine 03/04/2025 8:16 AM EDT Chronic kidney disease, stage V (CMS/HCC V24, CMS/HCC V28) Anemia of chronic renal failure Hyperkalemia Alkaline phosphatase deficiency Secondary hyperparathyroidism of renal origin (CMS/HCC V24) Hypertension, essential PHOSPHORUS Routine 03/04/2025 8:16 AM EDT Chronic kidney disease, stage V (CMS/HCC V24, CMS/HCC V28) Anemia of chronic renal failure Hyperkalemia Alkaline phosphatase deficiency Secondary hyperparathyroidism of renal origin (CMS/HCC V24) Hypertension, essential ELECTROLYTE PANEL Routine 03/04/2025 8:1 6 AM EDT Chronic kidney disease, stage V (CMS/HCC V24, CMS/HCC V28) Anemia of chronic renal failure Hyperkalemia Alkaline phosphatase deficiency Secondary hyperparathyroidism of renal origin (CMS/HCC V24) Hypertension, essential BUN Routine 03/04/2025 8:16 AM EDT Chronic kidney disease, stage V (CMS/HCC V24, CMS/HCC V28) Anemia of chronic renal failure Hyperkalemia Alkaline phosphatase deficiency Secondary hyperparathyroidism of renal origin (CMS/HCC V24) Hypertension, essential IRON AND TIBC Routine 03/04/2025 8:16 AM EDT Chronic kidney disease, stage V (CMS/HCC V24, CMS/HCC V28) Anemia of chronic renal failure Hyperkalemia Alkaline phosphatase deficiency Secondary hyperparathyroidism of renal origin (CMS/HCC V24) Hypertension, essential FERRITIN Routine 03/04/2025 8:16 AM EDT Chronic kidney disease, stage V (CMS/HCC V24, CMS/HCC V28) Anemia of chronic renal failure Hyperkalemia Alkaline phosphatase deficiency Secondary hyperparathyroidism of renal origin (CMS/HCC V24) Hypertension, essential CREATININE, SERUM Routine 03/04/2025 8:1 6 AM EDT Chronic kidney disease, stage V (CMS/HCC V24, CMS/HCC V28) Anemia of chronic renal failure Hyperkalemia Alkaline phosphatase deficiency Secondary hyperparathyroidism of renal origin (CMS/HCC V24) Hypertension, essential CBC AND DIFFERENTIAL Routine 03/04/2025 8:16 AM EDT Chronic kidney disease, stage V (CMS/HCC V24, CMS/HCC V28) Anemia of chronic renal failure Hyperkalemia Alkaline phosphatase deficiency Secondary hyperparathyroidism of renal origin (CMS/HCC V24) Hypertension, essential CBC WITH AUTO DIFFERENTIAL Routine 01/30/2025 8:08 AM EDT Essential hypertension, malignant Secondary hyperparathyroidism of renal origin (CMS/HCC V24) Chronic kidney disease, stage V (CMS/HCC V24, CMS/HCC V28) Other disorders of phosphorus metabolism Hyperkalemia ELECTROLYTE PANEL Routine 01/30/2025 8:0 8 AM EDT Essential hypertension, malignant Secondary hyperparathyroidism of renal origin (CMS/HCC V24) Chronic kidney disease, stage V (CMS/HCC V24, CMS/HCC V28) Other disorders of phosphorus metabolism Hyperkalemia BUN Routine 01/30/2025 8:08 AM EDT Essential hypertension, malignant Secondary hyperparathyroidism of renal origin (CMS/HCC V24) Chronic kidney disease, stage V (CMS/HCC V24, CMS/HCC V28) Other disorders of phosphorus metabolism Hyperkalemia CREATININE, SERUM Routine 01/30/2025 8:0 8 AM EDT Essential hypertension, malignant Secondary hyperparathyroidism of renal origin (CMS/HCC V24) Chronic kidney disease, stage V (CMS/HCC V24, CMS/HCC V28) Other disorders of phosphorus metabolism Hyperkalemia CBC AND DIFFERENTIAL Routine 01/30/2025 8:08 AM EDT Essential hypertension, malignant Secondary hyperparathyroidism of renal origin (CMS/HCC V24) Chronic kidney disease, stage V (CMS/HCC V24, CMS/HCC V28) Other disorders of phosphorus metabolism Hyperkalemia CBC WITH AUTO DIFFERENTIAL Routine 12/30/2024 8:29 [...] Hypophosphaturia Hyperpotassemia Anemia of chronic renal failure HEMOGLOBIN A1C Routine 04/24/2023 LIPID PANEL Routine 04/24/2023 from Last 3 Months or Most Recently Relevant to Health Maintenance Results * (ABNORMAL) CBC auto differential (03/04/2025 8:16 AM EDT) Only the most recent of3 resultswithin the time period is included. WBC 4.3(L) 4.8 - 10.8 K/mcL LAB HEMETOLOGY METHOD 03/04/2025 8:46 AM [facility] RBC 3.10(L) 4.50 - 5.50 M/mcL LAB HEMETOLOGY METHOD 03/04/2025 8:46 AM [facility] Hemoglobin 9.3(L) 13.5 - 17.5 g/dL LAB HEMETOLOGY METHOD 03/04/2025 8:46 AM [facility] Hematocrit 31.1(L) 42.0 - 54.0 % LAB HEMETOLOGY METHOD 03/04/2025 8:46 AM [facility] MCV 101.0(H) 79.0 - 98.0 FL LAB HEMETOLOGY METHOD 03/04/2025 8:46 AM [facility] MCH 30.2 27.0 - 32.0 pcg LAB HEMETOLOGY METHOD 03/04/2025 8:46 AM [facility] MCHC 29.9(L) 32.0 - 37.0 g/dL LAB HEMETOLOGY METHOD 03/04/2025 8:46 AM [facility] RDW 14.2 11.0 - 15.0 % LAB HEMETOLOGY METHOD 03/04/2025 8:46 AM [facility] Platelets 168 130 - 400 K/mcL LAB HEMETOLOGY METHOD 03/04/2025 8:46 AM [facility] MPV 10.8 7.0 - 11.0 FL LAB HEMETOLOGY METHOD 03/04/2025 8:46 AM EDT [facility] NRBC 0.0 <1.0 % LAB HEMETOLOGY METHOD 03/04/2025 8:46 AM [facility] NRBC Absolute 0.00 <0.10 K/mcL LAB HEMETOLOGY METHOD 03/04/2025 8:46 AM EDT [facility] Neutrophils Relative 56.9 % LAB HEMETOLOGY METHOD 03/04/2025 8:46 AM T [facility] Lymphocytes Relative 32.2 % LAB HEMETOLOGY METHOD 03/04/2025 8:46 AM [facility] Monocytes Relative 9.6 % LAB HEMETOLOGY METHOD 03/04/2025 8:46 AM [facility] Eosinophils Relative 0.9 % LAB HEMETOLOGY METHOD 03/04/2025 8:46 AM [facility] Basophils Relative 0.2 % LAB HEMETOLOGY METHOD 03/04/2025 8:46 AM [facility] Immature Granulocytes Relative 0.2 % LAB HEMETOLOGY METHOD 03/04/2025 8:46 AM [facility] Neutrophils Absolute 2.42 1.50 - 7.00 K/mcL LAB HEMETOLOGY METHOD 03/04/2025 8:46 AM EDT [facility] Lymphocytes Absolute 1.37 1.00 - 5.00 K/mcL LAB HEMETOLOGY METHOD 03/04/2025 8:46 AM EDT [facility] Monocytes Absolute 0.41 0.20 - 1.00 K/mcL LAB HEMETOLOGY METHOD 03/04/2025 8:46 AM [facility] Eosinophils Absolute 0.04 0.00 - 0.50 K/mcL LAB HEMETOLOGY METHOD 03/04/2025 8:46 AM EDT [facility] Basophils Absolute 0.01 0.00 - 0.20 K/[facility] LAB HEMETOLOGY METHOD 03/04/2025 8:46 AM EDT [facility] Immature Granulocytes Absolute 0.01 0.00 - 0.03 K/[facility] LAB HEMETOLOGY METHOD 03/04/2025 8:46 AM EDT [facility] Blood Venous blood specimen / Unknown Venipuncture / Unknown 03/04/2025 8:16 AM EDT 03/04/2025 8:38 AM EDT Matthieu Berrios MD LAB BLOOD ORDERABLES Final Resul t Performing Organization Address [facility] de Phone Number [facility] [address] [place] [address], [place] [phone] * Iron and TIBC (03/04/2025 8:16 AM EDT) Iron 55 50 - 160 mcg/dL LAB CHEMISTRY METHOD 03/04/2025 9:34 AM EDT [facility] TIBC 262 250 - 450 mcg/dL LAB CHEMISTRY METHOD 03/04/2025 9:34 AM EDT [facility] Iron Saturation 21 20 - 50 % LAB CHEMISTRY METHOD 03/04/2025 9:34 AM EDT [facility] Blood Venous blood specimen / Unknown Venipuncture / Unknown 03/04/2025 8:16 AM EDT 03/04/2025 8:38 AM EDT Matthieu Berrios MD LAB BLOOD ORDERABLES Final Resul t Performing Organization Address [facility]/ZIP Co de Phone Number [facility] [address] [place] [address], [place] [phone] * (ABNORMAL) Creatinine (03/04/2025 8:16 AM EDT) Only the most recent of3 resultswithin the time period is included. Creatinine 10.10(H) 0.70 - 1.30 mg/dL LAB CHEMISTRY METHOD 03/04/2025 9:31 AM EDT [facility] eGFR 5(L) >=60 mL/min/1 .73m2 LAB CHEMISTRY METHOD 03/04/2025 9:31 AM EDT [facility] Comment:Calculation based on the Chronic Kidney Disease Epidemiology Collaboration (CKD-EPI) equation refit without adjustment for race. Blood Venous blood specimen / Unknown Venipuncture / Unknown 03/04/2025 8:16 AM EDT 03/04/2025 8:38 AM EDT us Matthieu Berrios MD LAB BLOOD ORDERABLES Final Resul t Performing Organization Address [facility] de Phone Number [facility] [address] [place] [address], [place] [phone] * (ABNORMAL) BUN (03/04/2025 8:16 AM EDT) Only the most recent of3 resultswithin the time period is included. BUN 97(H) 5 - 25 mg/dL LAB CHEMISTRY METHOD 03/04/2025 9:31 AM EDT [facility] Blood Venous blood specimen / Unknown Venipuncture / Unknown 03/04/2025 8:16 AM EDT 03/04/2025 8:38 AM EDT us Matthieu Berrios MD LAB BLOOD ORDERABLES Final Resul t Performing Organization Address [facility] de Phone Number [facility] [address] [place] [address], * Phosphorus (03/04/2025 8:16 AM EDT) Phosphorus 4.2 2.5 - 4.5 mg/dL LAB CHEMISTRY METHOD 03/04/2025 9:26 AM EDT [facility] Blood Venous blood specimen / Unknown Venipuncture / Unknown 03/04/2025 8:16 AM EDT 03/04/2025 8:38 AM EDT us Matthieu Berrios MD LAB BLOOD ORDERABLES Final Resul t Performing Organization Address [facility]/ZIP Co de Phone Number [facility] [address] [place] [address], [place] [phone] * Ferritin (03/04/2025 8:16 AM EDT) Ferritin 162 26 - 388 ng/mL LAB CHEMISTRY METHOD 03/04/2025 9:34 AM EDT [facility] Blood Venous blood specimen / Unknown Venipuncture / Unknown 03/04/2025 8:16 AM EDT 03/04/2025 8:38 AM EDT us Matthieu Berrios MD LAB BLOOD ORDERABLES Final Resul t Performing Organization Address [facility] de Phone Number [facility] [address] [place] [address], [place] [phone] * Calcium (03/04/2025 8:16 AM EDT) Only the most recent of2 resultswithin the time period is included. Calcium 8.8 8.5 - 10.5 mg/dL LAB CHEMISTRY METHOD 03/04/2025 9:26 AM EDT [facility] Blood Venous blood specimen / Unknown Venipuncture / Unknown 03/04/2025 8:16 AM EDT 03/04/2025 8:38 AM EDT us Matthieu Berrios MD LAB BLOOD ORDERABLES Final Resul t Performing Organization Address City/[facility] Co de Phone Number [facility] [address] [place] [address], [place] [phone] * Electrolyte panel (03/04/2025 8:16 AM EDT) Only the most recent of3 resultswithin the time period is included. Sodium 140 133 - 145 mmol/L LAB CHEMISTRY METHOD 03/04/2025 9:34 AM EDT [facility] Potassium 5.5 3.5 - 5.5 mmol/L LAB CHEMISTRY METHOD 03/04/2025 9:34 AM EDT [facility] Chloride 110 96 - 110 mmol/L LAB CHEMISTRY METHOD 03/04/2025 9:34 AM EDT [facility] CO2 22 21 - 32 mmol/L LAB CHEMISTRY METHOD 03/04/2025 9:34 AM EDT [facility] Anion Gap 8 3 - 11 LAB CHEMISTRY METHOD 03/04/2025 9:34 AM EDT [facility] Blood Venous blood specimen / Unknown Venipuncture / Unknown 03/04/2025 8:16 AM EDT 03/04/2025 8:38 AM EDT Matthieu Berrios MD LAB BLOOD ORDERABLES Final Resul t [facility] [address] [place] [address], * Hemoglobin A1c (04/24/2023) Hemoglobin A1C 5.2 [...] Unknown Historical Provider LAB BLOOD ORDERABLES Domitila briseno Result from Last 3 Months or Most Recently Relevant to Health Maintenance Insurance [employer] Member Subscriber Plan / Payer (Ef fective 2023-Present) Name:BERONICA STONER Relation to Subscriber:Self Name:Beronica Stoner Payer ID:[id number] Group ID:[id number] Type:Not on file Address: [facility] [id number] [place] [id number] Care Teams Adoption Counselor Relationship Specialty Start Date End Date Maynor Potts MD [address] [address] PCP - General Internal Medicine 11/26/20
== END 2025-03-11 10:55 | disposition home or self-care (01) ==
LOC: HO.HKAS 10:26
PROVIDERS: PCP Internal Medicine; Visit Provider Internal Medicine Nephrology
DX: I12.0 Hypertensive chronic kidney disease with stage 5 chronic kidney disease or end stage renal disease (principal); N25.81 Secondary hyperparathyroidism of renal origin; N18.5 Chronic kidney disease, stage 5; E83.39 Other disorders of phosphorus metabolism; E87.5 Hyperkalemia; D63.1 Anemia in chronic kidney disease
CPT/HCPCS: 99214

== ENCOUNTER → 2025-03-11 10:25 | Outpatient (BNVA) | payer OTHER, SELFPAY | PROVIDERS: PCP Internal Medicine; Visit Provider Internal Medicine Nephrology | DX: I12.9 Hypertensive chronic kidney disease with stage 1 through stage 4 chronic kidney disease, or unspecified chronic kidney disease (principal); D63.1 Anemia in chronic kidney disease; N18.5 Chronic kidney disease, stage 5; N25.81 Secondary hyperparathyroidism of renal origin; E83.39 Other disorders of phosphorus metabolism; E87.5 Hyperkalemia; Z79.899 Other long term (current) drug therapy | CPT/HCPCS: 96372; Q5106 ==

== ENCOUNTER 2025-04-15 10:12 | Outpatient (AMB) | payer OTHER, SELFPAY ==
--- NOTE | 2025-04-15 10:18 | HO.NEPHOV_ITS ---
Vital Signs 04/15/25 10:20 Height 5 ft 6 in Weight 133 lb BMI 21.5 BP 110/60 Blood Pressure Location Lt brachial Position Sitting Pulse 66 Pulse Source Pulse Oximeter Pulse Oximetry (%) 100 Oxygen Delivery Method Room Air Intake Visit Reasons: 1mon f/u w/labs-[employer] Required: No Accompanied by: Self / Same As Patient Allergies No Known Allergies Allergy (Verified 04/15/25 10:20) HPI Comments Details: Maik was seen in follow-up of his advanced chronic kidney disease, hypertension and anemia of chronic disease along with secondary hyperparathyroidism of renal origin. He denies any uremic symptoms or hypoglycemias. His weight had been stable. His blood sugar well controlled. He denies any nausea, vomiting, shortness of breath, pedal edema, urinary symptoms, tremors, confusion, chest pain. Otherwise there were no new active complaints at the time of this office visit [facility] Medical History AVF (arteriovenous fistula) Secondary hyperparathyroidism (of renal origin) Anemia in chronic kidney disease (CKD) Hypertension CKD (chronic kidney disease) stage 5, GFR less than 15 ml/min Surgical History History of eye surgery History of cataract surgery Social History Alcohol intake: never Patient Tobacco Use Status: Never used Tobacco Review of Systems Const All systems reviewed & are unremarkable except as noted in HPI and below Physical Exam Vital Signs: Last Vital Signs Pulse 66 04/15/25 10:20 BP 110/60 04/15/25 10:20 Pulse Ox 100 04/15/25 10:20 Oxygen Delivery Method Room Air 04/15/25 10:20 BMI result Body Mass Index 21.5 Const General: comfortable and no acute distress Orientation/consciousness: patient oriented x3 HEENT Head: Yes normocephalic Mouth: Normal oral and palatal mucosa present Eyes EOM: EOMs intact bilaterally Neck Neck: Yes supple Resp Auscultation: clear to auscultation bilaterally Cardio Jugular venous distension: no JVD Rate: regular rate GI Palpation (GI): Soft to palpation Auscultation: normal bowel sounds General: Yes no CVA tenderness Back/Spine/Pelvis Back: no CVA tenderness Skin General skin exam: no rashes or lesions noted Neuro General: patient oriented x3 and moves all extremities Extrem General: Yes no pedal edema Office Meds epoetin [id number] 10,000 unit/mL injection solution Performing Provider: Matthieu Berrios MD [facility] Administered by: Matthieu Berrios MD on 04/15/25 10:37 Dose Route Admin Location Dispensed Lot Number Expiration Date [facility] Washcoat Wiper 40,000 unit subcut LUE 4 mL [id number] 09/12/26 4674-6469-70 [employer] Total Dispensed Waste 4 mL 0 % Assessment & Plan Assessment & Plan (1) Hypertension: Code(s): I10 - Essential (primary) hypertension Category: Medical Qualifiers: Hypertension type: primary hypertension Qualified Code(s): I10 - Essential (primary) hypertension (2) Secondary hyperparathyroidism (of renal origin): Code(s): N25.81 - Secondary hyperparathyroidism of renal origin Category: Medical (3) CKD (chronic kidney disease) stage 5, GFR less than 15 ml/min: Code(s): N18.5 - Chronic kidney disease, stage 5 Category: Medical (4) Hyperphosphatemia: Code(s): E83.39 - Other disorders of phosphorus metabolism Category: Medical (5) Hyperkalemia: Code(s): E87.5 - Hyperkalemia Category: Medical (6) Anemia in chronic kidney disease (CKD): Code(s): N18.9 - Chronic kidney disease, unspecified; D63.1 - Anemia in chronic kidney disease Category: Medical Qualifiers: Chronic kidney disease stage: stage 5, not on chronic dialysis Qualified Code(s): N18.5 - Chronic kidney disease, stage 5; D63.1 - Anemia in chronic kidney disease Plan Maik has 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 He denies uremic symptoms. He has a functioning AV fistula. His blood pressure has been at goal at home. He should continue Kayexalate . He is on sodium bicarbonate . He has declined transplant evaluation in the past. There are no clinical indication for him to be initiated on hemodialysis. He is on ferrous sulfate. His transferrin saturations are appropriate. He is on vitamin-D. I have asked him to continue current dose of calcitriol. I gave him [id number] Units of Procrit today. He should continue Renvela 800 mg tid with meals. All questions answered. Follow-up given Orders: Orders Phosphorus 1 Month D63.1 - Anemia in chronic kidney disease, E83.39 - Other disorders of phosphorus metabolism, E87.5 - Hyperkalemia, I10 - Essential (primary) hypertension, N18.5 - Chronic kidney disease, stage 5, N25.81 - Secondary hyperparathyroidism of renal origin Parathyroid Hormone Intact 1 Month D63.1 - Anemia in chronic kidney disease, E83.39 - Other disorders of phosphorus metabolism, E87.5 - Hyperkalemia, I10 - Essential (primary) hypertension, N18.5 - Chronic kidney disease, stage 5, N25.81 - Secondary hyperparathyroidism of renal origin Blood Urea Nitrogen 1 Month D63.1 - Anemia in chronic kidney disease, E83.39 - Other disorders of phosphorus metabolism, E87.5 - Hyperkalemia, I10 - Essential (primary) hypertension, N18.5 - Chronic kidney disease, stage 5, N25.81 - Secondary hyperparathyroidism of renal origin Calcium 1 Month D63.1 - Anemia in chronic kidney disease, E83.39 - Other disorders of phosphorus metabolism, E87.5 - Hyperkalemia, I10 - Essential (primary) hypertension, N18.5 - Chronic kidney disease, stage 5, N25.81 - Secondary hyperparathyroidism of renal origin IRON PROFILE 1 Month D63.1 - Anemia in chronic kidney disease, E83.39 - Other disorders of phosphorus metabolism, E87.5 - Hyperkalemia, I10 - Essential (primary) hypertension, N18.5 - Chronic kidney disease, stage 5, N25.81 - Secondary hyperparathyroidism of renal origin Ferritin 1 Month D63.1 - Anemia in chronic kidney disease, E83.39 - Other disorders of phosphorus metabolism, E87.5 - Hyperkalemia, I10 - Essential (primary) hypertension, N18.5 - Chronic kidney disease, stage 5, N25.81 - Secondary hyperparathyroidism of renal origin Creatinine 1 Month D63.1 - Anemia in chronic kidney disease, E83.39 - Other disorders of phosphorus metabolism, E87.5 - Hyperkalemia, I10 - Essential (primary) hypertension, N18.5 - Chronic kidney disease, stage 5, N25.81 - Secondary hyperparathyroidism of renal origin Electrolytes 1 Month D63.1 - Anemia in chronic kidney disease, E83.39 - Other disorders of phosphorus metabolism, E87.5 - Hyperkalemia, I10 - Essential (primary) hypertension, N18.5 - Chronic kidney disease, stage 5, N25.81 - Secondary hyperparathyroidism of renal origin Complete Blood Count Auto Diff 1 Month D63.1 - Anemia in chronic kidney disease, E83.39 - Other disorders of phosphorus metabolism, E87.5 - Hyperkalemia, I10 - Essential (primary) hypertension, N18.5 - Chronic kidney disease, stage 5, N25.81 - Secondary hyperparathyroidism of renal origin AMB Epoetin Injection Practice Supplied Today D63.1 - Anemia in chronic kidney disease, N18.5 - Chronic kidney disease, stage 5 Coding Level of Care Code Est Pt Level 4 (21350) Diagnoses Primary hypertension I10 Hypertension type: primary hypertension Secondary hyperparathyroidism (of renal origin) N25.81 CKD (chronic kidney disease) stage 5, GFR less than 15 ml/min N18.5 Hyperphosphatemia E83.39 Hyperkalemia E87.5 Anemia in stage 5 chronic kidney disease, not on chronic dialysis N18.5; D63.1 Chronic kidney disease stage: stage 5, not on chronic dialysis
[2025-04-15 10:20] VITALS: BP 110/60; PULSE 66; O2SAT 100; BMI 21.5
--- OUTSIDE RECORDS SUMMARY | 2025-04-15 11:39 | XMS_ITS | Clinical Summary ---
Author Organization [facility] Address [address] [place] [address] Phone Care Team Providers Care Diesel Locomotive Crane Operator Name Role Phone Maynor Potts MD Primary Care Provider [phone] Allergies No known active allergies Medications aspirin [...] EACH DAY. 90 tablet 4 12/09/2024 Active cyanocobalamin (VITAMIN B-12) 1,000 mcg tablet Take 1 tablet (1,000 mcg total) by mouth 1 (one) time each day. 30 each 11 04/07/2025 04/07/20 26 Active Active Problems Problem Noted Date Diagnosed Date UTI (urinary tract infection) 05/23/2019 Anemia 04/19/2018 Assessment & Plan (03/31/2025 11:04 AM EST): Orders: Vitamin B12; Future Type 2 diabetes mellitus wit h renal manifestations ([facility] V24, [facility] V28) 04/19/2018 Assessment & Plan (03/31/2025 11:04 AM EST): Appears to be controlled. Type 2 diabetes mellitus wit h eye manifestations ([facility] V24, [facility] V28) 04/19/2018 Benign localized hyperplasia of prostate with urinary obstruction 12/19/2017 CKD (chronic kidney disease) stage 5, GFR less than 15 ml/min ([facility] V24, [facility] V28) 12/19/2017 Assessment & Plan (03/31/2025 11:04 AM EST): . Stable. medical management on Kayexalate, sodium bicarb low-dose ,metoprolol,,Rocaltrol and aspirin. Orders: Vitamin B12; Future Hyperlipidemia 12/19/2017 Assessment & Plan (03/31/2025 11:04 AM EST): Stable on Lipitor. Hypertension 12/19/2017 Assessment & Plan (03/31/2025 11:04 AM EST): Appears to be under control on metoprolol. Hypothyroidism 12/19/2017 Proteinuria 12/19/2017 Type 2 diabetes mellitus wit h cataract ([facility] V24, [facility] V28) 12/19/2017 AV fistula ([facility] V24) 08/16/2017 Vitamin B12 deficiency 11/09/2016 Cataract 12/25/2014 Overview (02/14/2024): S/p surgery Hyperparathyroidism ([facility] V24) 10/02/2013 Background diabetic retinopathy ([facility] V24, [facility] V28) 03/01/2012 Overview (02/14/2024): S/p laser treatment Encounters Date Type Department Care Team Description 04/07/2025 8:20 AM EST Lab Draw Station - [address] [facility] [address] [place] [id number] Hyperpotassemia (Primary Dx); Hypophosphaturia; Chronic kidney disease, stage V ([facility] V24, [facility] V28); Secondary hyperparathyroidism of renal origin ([facility] V24); Essential hypertension, benign; Anemia of chronic renal failure; CKD (chronic kidney disease) stage 5, GFR less than 15 ml/min ([facility] V24, [facility] V28); Anemia due to stage 5 chronic kidney disease, not on chronic dialysis ([facility] V24, [facility] V28) 04/07/2025 Results Follow-Up Internal Medicine [address] [phone] Maynor Potts MD 04/04/2025 Telephone Internal Medicine [address] [phone] Maynor Potts MD 03/31/2025 9:45 AM EST Office Visit Internal Medicine [address] [phone] Maynor Potts MD CKD (chronic kidney disease) stage 5, GFR less than 15 ml/min ([facility] V24, [facility] V28) (Primary Dx); Type 2 diabetes mellitus with other diabetic kidney complication, without long-term current use of insulin ([facility] V24, [facility] V28); Primary hypertension; Pure hypercholesterolemia; Anemia due to stage 5 chronic kidney disease, not on chronic dialysis ([facility] V24, [facility] V28) from Last 3 Months Immunizations Immunization Administration Dates Next Due Pneumococcal [...] Date Comments Anemia 04/19/2018 DX:Anemia AV fistula ([facility] V24) 08/16/2017 DX:AV f istula ([facility]) Background diabetic retinopa thy ([facility] V24, [facility] V28) 03/01/2012 DX:Background diabetic retin opathy ([facility]); COMMENT: S/p laser treatment Benign localized hyperplasia of prostate with urinary obstruction 12/19/2017 DX:Benign localized hyperpla faustino of prostate with urinary obstruction Cataract 12/25/2014 DX:Cataract; COM MENT: S/p surgery CKD (chronic kidney disease) stage 5, GFR less than 15 ml/min ([facility] V24, [facility] V28) 12/19/2017 DX:CKD (chronic kidney disea se) stage 5, GFR less than 15 ml/min ([facility]) Hyperlipidemia 12/19/2017 DX:Hyperlipidemi a Hyperparathyroidism ([facility] V24) 10/02/2013 DX:Hyperparathyroidism ([facility]) Hypertension 12/19/2017 DX:Hypertension Hypothyroidism 12/19/2017 DX:Hypothyroidis m Proteinuria 12/19/2017 DX:Proteinuria Type 2 diabetes mellitus wit h cataract ([facility] V24, [facility] V28) 12/19/2017 DX:Type 2 diabetes mellitus with cataract (HCC) Type 2 diabetes mellitus wit h eye manifestations ([facility] V24, [facility] V28) 04/19/2018 DX:Type 2 diabetes mellitus with eye manifestations (HCC) Type 2 diabetes mellitus wit h renal manifestations ([facility] V24, [facility] V28) 04/19/2018 DX:Type 2 diabetes mellitus with [...] drink = 0.6 oz pur e alcohol) Housing Instability Answer Date Recorde d Are you worried that in the next 2 months you may not have stable housing? No 03/31/2025 Food Access & Nutrition Answer Date Rec orded Do you have access to a vari ety of food including fruits and vegetables? Yes 03/31/2025 Health Literacy Answer Date Recorded How often do you need to hav e someone help you when you read instructions, pamphlets, or other written material from your doctor or pharmacy? Never 03/31/2025 Caregiver: How often do you need to have someone help you when you read instructions, pamphlets, or other written material from your doctor or pharmacy? Not on file 03/31/2025 Financial Risk Answer Date Recorded How hard is it for you to pa y for the very basics like food, housing, medical care, and air conditioning / heating? Not very hard 03/31/2025 Transportation Answer Date Recorded Has the lack of transportati on kept you from meetings, work, or from getting things needed for daily living? No Has the lack of transportati on kept you from medical appointments or from getting medications? No 03/31/2025 Social Isolation Answer Date Recorded How often do you feel lonely or isolated from th ose around you? Never 03/31/2025 Food Risk Answer Date Recorded Within the past 12 months we worried whether our food would run out before we got money to buy more. Never true 03/31/2025 Within the past 12 months th e food we bought just didn't last and we didn't have money to get more. Never true 03/31/2025 Dependent Care Answer Date Recorded Do you need help finding or paying for care for your loved ones. For example, child and youth program assistant or elderly care for an older adult? No 03/31/2025 Education Answer Date Recorded Do you think completing more education or training, like finishing a GED, going to college, or learning a trade, would be helpful for you? N/A 03/31/2025 Employment and Income Answer Date Recor ded During the last four weeks, have you been actively looking for work? No 03/31/2025 Living Situation Answer Date Recorded What is your living situation? Unrecognized valu e 03/31/2025 Sex and Gender Information Value Date Recorded Sex Assigned at Not on file Legal Sex Male 2:33 PM EST Gender Identity Not on file Sexual Orientation Not on file Obstetrics History Last Filed Vital Signs Vital Sign Reading Time Taken Comments Blood Pressure 142/80 03/31/2025 9:45 AM EST Pulse 71 03/31/2025 9:45 AM EST Temperature 36 C (96.8 F) 03/31/2025 9:45 AM EST Respiratory Rate - - Oxygen Saturation 94% 03/31/2025 9:45 AM EST Inhaled Oxygen Concentration - - Weight 58.4 kg (128 lb 12.8 oz) 03/31/2025 9:45 AM EST Height 167.6 cm (5' 6 ) 03/31/2025 9:45 AM EST Body Mass Index 20.79 03/31/2025 9:45 AM EST Plan of Treatment Upcoming Encounters Date Type Department Care Team (Late st Contact Info) Description 10/01/2025 9:30 AM EDT Office Visit Internal Medicine - [place] [address] [facility] [address] [place] [address] Maynor Potts MD [address] [facility] [address] [place] [address] Health Maintenance Due Date Last Done Comments Diabetes: Annual Foot Exam 1955 Diabetes: Annual Retina Eye Exam 1955 DTaP,Tdap,and Td Vaccines (1 - Tdap) 1965 Zoster Vaccines (1 of 2) 1965 RSV Immunization Adult Patients (1 - 1-dose 75+ series) 2021 Hepatitis C Screening 04/23/2022 Diabetes: Blood Sugar Control Test (HGBA1C) 10/24/2023 04/24/2023 COVID-19 Vaccine ( season) 2025 03/31/2023, 03/17/2022, 08/23/2021, Additional history exists Influenza Vaccine (#1) 2025 02/12/2017 Falls Risk Assessment 03/31/2026 03/31/2025 Medicare Annual Wellness Visit 03/31/2026 03/31/2025 Social Influencers of Health Screening 03/31/2026 03/31/2025 Hypertension/CHF/CAD Annual BMP Blood Test 04/07/2026 04/07/2025, 03/04/2025, 01/30/2025, Additional history exists Cholesterol Screening (Lipid Panel) 04/24/2028 04/24/2023 Pneumococcal Vaccine: 50+ Years Completed 03/16/2016, 01/13/2013 Depression Screening Completed 03/31/2025 HIB Vaccines Aged Out No longer eligi [...] Diagnosis Comments CBC WITH AUTO DIFFERENTIAL Routine 04/07/2025 8:24 AM EST Hyperpotassemia Hypophosphaturia Chronic kidney disease, stage V (CMS/HCC V24, CMS/HCC V28) Secondary hyperparathyroidism of renal origin (CMS/HCC V24) Essential hypertension, benign Anemia of chronic renal failure VITAMIN B12 Routine 04/07/2025 8:24 AM EST CKD (chronic kidney disease) stage 5, GFR less than 15 ml/min (CMS/HCC V24, CMS/HCC V28) Anemia due to stage 5 chronic kidney disease, not on chronic dialysis (CMS/HCC V24, CMS/HCC V28) BUN Routine 04/07/2025 8:24 AM EST Hyperpotassemia Hypophosphaturia Chronic kidney disease, stage V (CMS/HCC V24, CMS/HCC V28) Secondary hyperparathyroidism of renal origin (CMS/HCC V24) Essential hypertension, benign Anemia of chronic renal failure CREATININE, SERUM Routine 04/07/2025 8:2 4 AM EST Hyperpotassemia Hypophosphaturia Chronic kidney disease, stage V (CMS/HCC V24, CMS/HCC V28) Secondary hyperparathyroidism of renal origin (CMS/HCC V24) Essential hypertension, benign Anemia of chronic renal failure CBC AND DIFFERENTIAL Routine 04/07/2025 8:24 AM EST Hyperpotassemia Hypophosphaturia Chronic kidney disease, stage V (CMS/HCC V24, CMS/HCC V28) Secondary hyperparathyroidism of renal origin (CMS/HCC V24) Essential hypertension, benign Anemia of chronic renal failure ELECTROLYTE PANEL Routine 04/07/2025 8:2 4 AM EST Hyperpotassemia Hypophosphaturia Chronic kidney disease, stage V (CMS/HCC V24, CMS/HCC V28) Secondary hyperparathyroidism of renal origin (CMS/HCC V24) Essential hypertension, benign Anemia of chronic renal failure CALCIUM Routine 04/07/2025 8:24 AM EST Hyperpotassemia Hypophosphaturia Chronic kidney disease, stage V (CMS/HCC V24, CMS/HCC V28) Secondary hyperparathyroidism of renal origin (CMS/HCC V24) Essential hypertension, benign Anemia of chronic renal failure CBC WITH AUTO DIFFERENTIAL Routine 03/04/2025 8:16 [...] V28) Other disorders of phosphorus metabolism Hyperkalemia HEMOGLOBIN A1C Routine 04/24/2023 LIPID PANEL Routine 04/24/2023 from Last 3 Months or Most Recently Relevant to Health Maintenance Results * (ABNORMAL) CBC auto differential (04/07/2025 8:24 AM EST) Only the most recent of3 resultswithin the time period is included. WBC 3.8(L) 4.8 - 10.8 K/mcL LAB HEMETOLOGY METHOD 04/07/2025 10:[address] [facility] RBC 2.80(L) 4.50 - 5.50 M/mcL LAB HEMETOLOGY METHOD 04/07/2025 10:19 AM EST [facility] Hemoglobin 8.4(L) 13.5 - 17.5 g/dL LAB HEMETOLOGY METHOD 04/07/2025 10:[address] [facility] Hematocrit 27.7(L) 42.0 - 54.0 % LAB HEMETOLOGY METHOD 04/07/2025 10:[address] [facility] MCV 100.4(H) 79.0 - 98.0 FL LAB HEMETOLOGY METHOD 04/07/2025 10:[address] [facility] MCH 30.4 27.0 - 32.0 pcg LAB HEMETOLOGY METHOD 04/07/2025 10:[address] [facility] MCHC 30.3(L) 32.0 - 37.0 g/dL LAB HEMETOLOGY METHOD 04/07/2025 10:[address] [facility] RDW 14.7 11.0 - 15.0 % LAB HEMETOLOGY METHOD 04/07/2025 10:[address] [facility] Platelets 171 130 - 400 K/mcL LAB HEMETOLOGY METHOD 04/07/2025 10:[address] [facility] MPV 11.2(H) 7.0 - 11.0 FL LAB HEMETOLOGY METHOD 04/07/2025 10:[address] [facility] NRBC 0.0 <1.0 % LAB HEMETOLOGY METHOD 04/07/2025 10:[address] [facility] NRBC Absolute 0.00 <0.10 K/mcL LAB HEMETOLOGY METHOD 04/07/2025 10:[address] [facility] Neutrophils Relative 54.6 % LAB HEMETOLOGY METHOD 04/07/2025 10:[address] [facility] Lymphocytes Relative 34.4 % LAB HEMETOLOGY METHOD 04/07/2025 10:[address] [facility] Monocytes Relative 9.7 % LAB HEMETOLOGY METHOD 04/07/2025 10:[address] [facility] Eosinophils Relative 1.0 % LAB HEMETOLOGY METHOD 04/07/2025 10:19 AM EST [facility] Basophils Relative 0.0 % LAB HEMETOLOGY METHOD 04/07/2025 10:[address] [facility] Immature Granulocytes Relative 0.3 % LAB HEMETOLOGY METHOD 04/07/2025 10:[address] [facility] Neutrophils Absolute 2.08 1.50 - 7.00 K/mcL LAB HEMETOLOGY METHOD 04/07/2025 10:[address] [facility] Lymphocytes Absolute 1.31 1.00 - 5.00 K/mcL LAB HEMETOLOGY METHOD 04/07/2025 10:[address] [facility] Monocytes Absolute 0.37 0.20 - 1.00 K/mcL LAB HEMETOLOGY METHOD 04/07/2025 10:[address] [facility] Eosinophils Absolute 0.04 0.00 - 0.50 K/mcL LAB HEMETOLOGY METHOD 04/07/2025 10:19 AM EST [facility] Basophils Absolute 0.00 0.00 - 0.20 K/mcL LAB HEMETOLOGY METHOD 04/07/2025 10:[address] [facility] Immature Granulocytes Absolute 0.01 0.00 - 0.03 K/mcL LAB HEMETOLOGY METHOD 04/07/2025 10:[address] [facility] Blood Venous blood specimen / Unknown Venipuncture / Unknown 04/07/2025 8:24 AM EST 04/07/2025 10:06 AM EST us Matthieu Berrios MD LAB BLOOD ORDERABLES Final Resul t [facility] [address] [place] [address], * (ABNORMAL) Creatinine (04/07/2025 8:24 AM EST) Only the most recent of3 resultswithin the time period is included. Creatinine 9.62(H) 0.70 - 1.30 mg/dL 04/07/2025 11:03 AM EST [facility] eGFR 5(L) >=60 mL/min/1. 73m2 04/07/2025 11:03 AM EST [facility] Comment:Calculation based on the Chronic Kidney Disease Epidemiology Collaboration (CKD-EPI) equation refit without adjustment for race. Blood Venous blood specimen / Unknown Venipuncture / Unknown 04/07/2025 8:24 AM EST 04/07/2025 10:03 AM EST us Matthieu Berrios MD LAB BLOOD ORDERABLES Final Resul t Performing Organization Address City/[facility]/ZIP Co de Phone Number [facility] [address] [place] [address], [place] [phone] * (ABNORMAL) BUN (04/07/2025 8:24 AM EST) Only the most recent of3 resultswithin the time period is included. BUN 102(H) 5 - 25 mg/dL 04/07/2025 11:03 AM EST [facility] Comment:Results verified by repeat testing Blood Venous blood specimen / Unknown Venipuncture / Unknown 04/07/2025 8:24 AM EST 04/07/2025 10:03 AM EST us Matthieu Berrios MD LAB BLOOD ORDERABLES Final Resul t [facility] [address] [place] [address], [place] [phone] * Vitamin B12 (04/07/2025 8:24 AM EST) Vitamin B-12 212 211 - 911 pcg/mL 04/07/2025 10:58 AM EST [facility] Blood Venous blood specimen / Unknown Venipuncture / Unknown 04/07/2025 8:24 AM EST 04/07/2025 10:03 AM EST Maynor Potts MD LAB BLOOD ORDERABLES Final Resul t Performing Organization Address City/[facility]/ZIP Co de Phone Number [facility] [address] [place] [address], [place] [phone] * Calcium (04/07/2025 8:24 AM EST) Only the most recent of2 resultswithin the time period is included. Calcium 8.7 8.5 - 10.5 mg/dL 04/07/2025 10:[address] [facility] Blood Venous blood specimen / Unknown Venipuncture / Unknown 04/07/2025 8:24 AM EST 04/07/2025 10:03 AM EST Matthieu Berrios MD LAB BLOOD ORDERABLES Final Resul t Performing Organization Address City/[facility] Co de Phone Number [facility] [address] [place] [address], [place] [phone] * (ABNORMAL) Electrolyte panel (04/07/2025 8:24 AM EST) Only the most recent of3 resultswithin the time period is included. Sodium 140 133 - 145 mmol/L 04/07/2025 10:[address] [facility] Potassium 5.3 3.5 - 5.5 mmol/L 04/07/2025 10:[address] [facility] Chloride 107 96 - 110 mmol/L 04/07/2025 10:[address] [facility] CO2 20(L) 21 - 32 mmol/L 04/07/2025 10:[address] [facility] Anion Gap 13(H) 3 - 11 04/07/2025 10:[address] [facility] Blood Venous blood specimen / Unknown Venipuncture / Unknown 04/07/2025 8:24 AM EST 04/07/2025 10:03 AM EST us Matthieu Berrios MD LAB BLOOD ORDERABLES Final Resul t Performing Organization Address City/[facility]/ZIP Co de Phone Number [facility] [address] [place] [address], [place] [phone] * Iron and TIBC (03/04/2025 8:16 AM EDT) Iron 55 50 - 160 mcg/dL LAB CHEMISTRY METHOD 03/04/2025 9:34 AM EDT [facility] TIBC 262 250 - 450 mcg/dL LAB CHEMISTRY METHOD 03/04/2025 9:34 AM EDT [facility] Iron Saturation 21 20 - 50 % LAB CHEMISTRY METHOD 03/04/2025 9:34 AM EDT [facility] Blood Venous blood specimen / Unknown Venipuncture / Unknown 03/04/2025 8:16 AM EDT 03/04/2025 8:38 AM EDT us Matthieu Berrios MD LAB BLOOD ORDERABLES Final Resul t Performing Organization Address [facility] de Phone Number [facility] [address] [place] [address], [place] [phone] * Phosphorus (03/04/2025 8:16 AM EDT) Phosphorus 4.2 2.5 - 4.5 mg/dL LAB CHEMISTRY METHOD 03/04/2025 9:26 AM EDT [facility] Blood Venous blood specimen / Unknown Venipuncture / Unknown 03/04/2025 8:16 AM EDT 03/04/2025 8:38 AM EDT us Matthieu Berrios MD LAB BLOOD ORDERABLES Final Resul t [facility] [address] [place] [address], [place] [phone] * Ferritin (03/04/2025 8:16 AM EDT) [facility] Ferritin 162 26 - 388 ng/mL LAB CHEMISTRY METHOD 03/04/2025 9:34 AM EDT [facility] Blood Venous blood specimen / Unknown Venipuncture / Unknown 03/04/2025 8:16 AM EDT 03/04/2025 8:38 AM EDT Matthieu Berrios MD LAB BLOOD ORDERABLES Final Resul t [facility] [address] [place] [address], [place] [phone] * Hemoglobin A1c (04/24/2023) [facility] Hemoglobin A1C 5.2 <=6.5 % Blood Venous blood specimen / Unknown Historical Provider LAB BLOOD ORDERABLES Domitila l Result * Lipid panel (04/24/2023) [facility] LDL/HDL Ratio 3 0 - 4 [...] STONER Relation to Subscriber:Self Name:Beronica Stoner Payer ID:[id number] Group ID:[id number] Type:Not on file Address: [facility] [address] [place] [address] Care Teams Diesel Locomotive Crane Operator Relationship Specialty Start Date End Date Maynor Potts MD [address] [address] PCP - General Internal Medicine 11/26/20
--- OUTSIDE RECORDS SUMMARY | 2025-04-15 11:39 | XMS_ITS | Encounter Summary ---
Author Organization [facility] Address [address] [place] [address] Care Team Providers Care Precinct Police Sergeant Name Role Phone Maynor Potts MD Primary Care Provider [phone] Reason for Referral * Consultation (Routine) - Closed Specialty Diagnoses / Procedures Referred By Contac t Referred To Contact Nephrology Diagnoses Chronic kidney disease, stage 5 (CMS/HCC V24, CMS/HCC V28) Maynor Potts MD [address] [place] [address] Phone: tel: fax: Matthieu Berrios MD [address] [facility] [address] [place] [address] Phone: tel: fax: Referral ID Status Reason Start Date Expiration Date V isits Requested Visits Authorized [id number] Closed Specialty Services Required 04/04/2025 04/04/2026 12 12 Reason for Visit * Reason Onset Date Comments Referral 04/04/2025 Nephrology Insur ance Referral Encounter Details Date Type Department Care Team (Late st Contact Info) Description 04/04/2025 Telephone Internal Medicine - [place] 175 [facility] [address] [place] [address] Maynor Potts MD 175 [facility] [address] [place] [address] Social History Tobacco Use Types Packs/Day Years [...] care for your loved ones. For example, childcare provider or elderly care for an older adult? [...] on file documented as of this encounter Progress Notes * Cynthia Madden - 04/04/2025 10:01 AM EST What insurance does the patient have today? Payor: @[email or web address]@/@[facility] Referrals cannot be processed if the insurance is not accurate. If the insurance listed above is NO BILLING INFORMATION FOUND FOR THIS ENCOUNTER then the patients correct insurance must be obtainedand registered in [facility] or their referral can not be processed. Name of person calling to request this referral? Fax -[facility] Referred To Provider (Include first and last name): Matthieu Berrios NPI (if known): [id number] Order/Specialty requested nephrology Chief Complaint (Note: This is not a body part or a procedure): N18.5 Has the patient seen provider for this problem/Dx before? Referred To Provider Address: [address] [place] [address] Referred To Provider Referred To Provider Does patient have an appointment scheduled?: yes If yes, what is the date of the appointment?: 04/15/25 Is this a retro request? no Number of visits requested: 12 Is this appointment related to: MVA or worker compensation? no documented in this encounter Plan of Treatment Upcoming Encounters Date Type Department Care Team (Late st Contact Info) Description 10/01/2025 9:30 AM EDT Office Visit Internal Medicine - [place] [address] [phone] Maynor Potts MD 175 [facility] [address] [place] [address] Scheduled Referrals Name Type Priority Associated Diagnoses Order Schedule Ambulatory referral to Nephrology Outpatient Referral Routine Chronic kidney disease, stage 5 (CMS/HCC V24, CMS/HCC V28) Expected: 04/04/2025, Expires: 04/04/2026 documented as of this encounter Visit Diagnoses Diagnosis Chronic kidney disease, stage 5 ([facility] V24, [facility] V28)- Primary documented in this encounter Additional Health Concerns Assessment Noted Time PHQ-9 Depression Total Score: 0 03/31/20 25 9:54 AM EST A fall risk assessment has been complete d for the patient 03/31/2025 9:53 AM EST documented as of this encounter Care Teams Precinct Police Sergeant Relationship Specialty Start Date End Date Maynor Potts MD [address] [address] PCP - General Internal Medicine 11/26/20 documented as of this encounter
--- OUTSIDE RECORDS SUMMARY | 2025-04-15 11:39 | XMS_ITS | Encounter Summary ---
Author Organization [facility] Address [address] [place] [address] Care Team Providers Care Supply Coordinator Name Role Phone Maynor Potts MD Primary Care Provider [phone] Encounter Details Date Type Department Care Team ([facility] Contact Info) Description 04/07/2025 Results Follow-Up Internal Medicine - [place] 175 [facility] [address] [place] [phone] Maynor Potts MD 175 [facility] [address] [place] [address] Social History Tobacco Use Types Packs/Day Years [...] care for your loved ones. For example, home child care provider or elderly care for an older [...] AM EDT Office Visit Internal Medicine - [place] 175 [facility] [address] [place] [address] Maynor Potts MD 175 [facility] [address] [place] [address] documented as of this encounter Visit Diagnoses Not on filedocumented in this encounter Additional Health Concerns Assessment Noted Time PHQ-9 Depression Total Score: 0 03/31/20 25 9:54 AM EST A fall risk assessment has been complete d for the patient 03/31/2025 9:53 AM EST documented as of this encounter Care Teams Supply Coordinator Relationship Specialty Start Date End Date Maynor Potts MD [address] [place] [address] PCP - General Internal Medicine 11/26/20 documented as of this encounter
== END 2025-04-15 10:47 | disposition home or self-care (01) ==
LOC: HO.HKAS 10:13
PROVIDERS: PCP Internal Medicine; Visit Provider Internal Medicine Nephrology
DX: I12.0 Hypertensive chronic kidney disease with stage 5 chronic kidney disease or end stage renal disease (principal); N25.81 Secondary hyperparathyroidism of renal origin; N18.5 Chronic kidney disease, stage 5; E83.39 Other disorders of phosphorus metabolism; E87.5 Hyperkalemia; D63.1 Anemia in chronic kidney disease
CPT/HCPCS: 99214

== ENCOUNTER → 2025-04-15 10:12 | Outpatient (BNVA) | payer OTHER, SELFPAY | PROVIDERS: PCP Internal Medicine; Visit Provider Internal Medicine Nephrology | DX: I12.0 Hypertensive chronic kidney disease with stage 5 chronic kidney disease or end stage renal disease (principal); N18.5 Chronic kidney disease, stage 5; D63.1 Anemia in chronic kidney disease; E83.39 Other disorders of phosphorus metabolism; N25.81 Secondary hyperparathyroidism of renal origin; E78.5 Hyperlipidemia, unspecified | CPT/HCPCS: 96372; Q5106 ==